=== PATIENT | female | born 1975 | race Two or more races ===

== ENCOUNTER 2018-11-29 08:48 | Emergency (ER) | payer MEDICARE, OTHER ==
[~2018-11-29] VITALS: Ht 154.9 cm; Wt 63.0 kg
[2018-11-29] MEDS ORDERED: Metoclopramide 10mg/2ml Inj IVP ONE (09:00)
[2018-11-29] MEDS ORDERED: Tylenol #3 tab (300mg/30mg) ORAL ONE (09:00)
[2018-11-29] MEDS ORDERED: DiphenhydrAMINE 50mg/ml Inj IVP ONE (09:00)
--- NOTE | 2018-11-29 09:05 | Emergency Room Report ---
History of Present Illness General Chief Complaint: To Be Triaged Source: Patient Present Illness HPI 43-year-old female with history of hypertension and pulmonary embolism on Xarelto presents with 1 week history of headache with nausea and vomiting. She reports she's tried Tylenol without much relief. She reports she went to [facility] earlier this week for the same headache and they did not do anything at all for her. She denies any blurred vision, trauma, abdominal pain , chest pain, fevers. She reports that she has been compliant with her Xarelto. Allergies: Coded Allergies: MORPHINE (Verified Allergy, Severe, CONVULSIONS, 10/26/17) Patient History Past Medical History: see triage record Reviewed Nursing Documentation: PMH: Agreed; PSxH: Agreed Review of Systems All Other Systems: negative except mentioned in HPI Physical Exam Sp02 EP Interpretation: reviewed, normal General Appearance: no apparent distress, alert, non-toxic Head: normocephalic Eyes: bilateral eye normal inspection, bilateral eye PERRL, bilateral eye EOMI ENT: normal ENT inspection, hearing grossly normal, normal pharynx, no angioedema, normal voice, moist mucus membranes Neck: normal inspection, full range of motion, supple, supple/symm/no masses Respiratory: chest non-tender, lungs clear, normal breath sounds, chest symmetrical, palpation of chest normal Cardiovascular #1: normal peripheral pulses, regular rate, rhythm, no edema, no gallop, no JVD, no murmur, no rub Cardiovascular #2: 2+ radial (R), 2+ radial (L) Gastrointestinal: normal inspection, non tender, soft, no mass, no guarding, no rebound Rectal: deferred Genitourinary: normal inspection, no CVA tenderness Musculoskeletal: back normal, gait/station normal, normal range of motion, non- tender, no calf tenderness Neurologic: alert, responsive, 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 Will obtain CT head to evaluate for any bleeding given the use of Xarelto, then reevaluate, as patient has a normal neuro exam I suspect patient will likely be going home unless CT shows evidence of intracranial bleeding. I have ordered IV Reglan, Benadryl, fluids, and 2 tablets of Tylenol 3 by mouth. Patient had some improvement symptoms, was given by mouth here, and will be discharged with prescription for Macrobid for incidental UTI. CT/MRI/US Diagnostic Results CT/MRI/US Diagnostic Results : Imaging Test Ordered: ct head Impression no acute dz, bilateral maxillary sinus mucosal thickening Disposition: HOME, SELF-CARE Condition: Stable SHITAL GUY M.D Nov 29, 2018 09:05
[2018-11-29 09:10] VITALS: BP 164/78
--- NOTE | 2018-11-29 09:10 | NUR ---
ED Nurse Note: Brought in to ER bedside via wheelchair due to abdominal pain with N/V and headahce x1 week. Denies CP at this time. No emesis nor s/s of vomitting at the bedside. Denies any bloody stool.
--- NOTE | 2018-11-29 09:19 | NUR ---
ED Nurse Note: Pt went down for CT via gurney.
[2018-11-29 09:25] LABS: APPEARANCE,URINE CLEAR; BILIRUBIN, URINE NEGATIVE (NEGATIVE); COLOR,URINE PALE YELLOW; GLUCOSE, URINE (UA) NEGATIVE (NEGATIVE); KETONES,URINE NEGATIVE (NEGATIVE); LEUKOCYTE ESTERASE ,URINE 3+ (NEGATIVE); NITRITE,URINE NEGATIVE (NEGATIVE); PH,URINE 7 (4.5-8.0); PROTEIN,URINE 1+ (NEGATIVE); UROBILINOGEN,URINE NORMAL MG/DL (0.0-1.0)
--- NOTE | 2018-11-29 09:29 | NUR ---
ED Nurse Note: Pt back from CT. No s/s of distress.
[2018-11-29 09:38] LABS: ANION GAP 6 mmol/L (5-15); BLOOD UREA NITROGEN 10 mg/dL (7-18); CARBON DIOXIDE 29 MMOL/L (21-32); CHLORIDE 100 MMOL/L (98-107); POTASSIUM 3.4 MMOL/L (3.5-5.1); SODIUM 135 MMOL/L (136-145)
[2018-11-29 09:42] LABS: ALANINE AMINOTRANSFERASE 33 U/L (12-78); ALBUMIN 3.7 G/DL (3.4-5.0); ALBUMIN/GLOBULIN RATIO 0.9 (1.0-2.7); ALKALINE PHOSPHATASE 82 U/L (46-116); ASPARTATE AMINO TRANSFERASE 27 U/L (15-37); BILIRUBIN,TOTAL 1.1 MG/DL (0.2-1.0)
[2018-11-29 09:46] LABS: BASOPHILS % (AUTO) 1.4 % (0.0-2.0); EOSINOPHILS % (AUTO) 3.6 % (0.0-3.0); HEMATOCRIT 46.3 % (37.0-47.0); HEMOGLOBIN 14.8 G/DL (12.0-16.0); LYMPHOCYTES % (AUTO) 26.6 % (20.0-45.0); MEAN CORPUSCULAR VOLUME 90 FL (80-99); MONOCYTES % (AUTO) 7.8 % (1.0-10.0); NEUTROPHILS % (AUTO) 60.6 % (45.0-75.0); PLATELET COUNT 264 K/UL (150-450); RED BLOOD COUNT 5.12 M/UL (4.20-5.40); RED CELL DISTRIBUTION WIDTH 15.5 % (11.6-14.8); WHITE BLOOD COUNT 10.3 K/UL (4.8-10.8)
[2018-11-29 09:51] LABS: BILIRUBIN,DIRECT 0.1 MG/DL (0.0-0.3)
--- NOTE | 2018-11-29 10:07 | Diagnostic Imaging Report ---
EXAM: CT Head Without Intravenous Contrast CLINICAL HISTORY: Head pain TECHNIQUE: Axial computed tomography images of the head/brain without intravenous contrast. Coronal images were obtained and reviewed. CTDI is 70.53 mGy and DLP is 1333 mGy-cm. One or more of the following dose reduction techniques were used: automated exposure control, adjustment of the mA and/or kV according to patient size, use of iterative reconstruction technique. COMPARISON: No relevant prior studies available. FINDINGS: Brain: Unremarkable. No evidence of acute intracranial hemorrhage. No significant white matter disease. No edema. No mass effect or midline shift. Ventricles: Unremarkable. No ventriculomegaly. Bones/joints: Unremarkable. No depressed skull fracture. Soft tissues: Unremarkable. Sinuses: Mucosal thickening throughout the ethmoid air cells and bilateral maxillary sinuses. Remaining visualized paranasal sinuses appear clear. No sinus air-fluid levels. Mastoid air cells: Unremarkable as visualized. No mastoid effusion. IMPRESSION: 1. No acute intracranial findings. 2. Mucosal thickening throughout the ethmoid air cells and bilateral maxillary sinuses. Correlate clinically for sinusitis.
[2018-11-29] MEDS ORDERED: BENADRYL25 M3 PO (10:31)
[2018-11-29] MEDS ORDERED: NITROFURANTOIN100 M2 ORAL (10:31)
[2018-11-29] MEDS ORDERED: REGLAN10 MG ORAL (10:31)
[2018-11-29] MEDS ORDERED: ACETAMINOPHEN-1 EAC1 ORAL (10:31)
[2018-11-29 10:38] VITALS: BP 118/67
[2018-11-29 10:39] VITALS: BP 118/67
--- NOTE | 2018-11-29 10:39 | NUR ---
ED Nurse Note: Pt cleared by health care Provider for discharge. DC instructions/prescription was given and explained to pt and verbalized understanding of teachings. All medical deviecs such as ID band IV removed. Pt is AAO x4, ambulatory and left with all personal belongings. Pt reports that she is going to wait in the waiting room until her come and pick her up. Denie pain at this time.
[2018-11-30] MEDS ORDERED: TRAMADOL HCL50 MG ORAL (11:52)
[2018-11-30] MEDS ORDERED: COUMADIN7.5 MG ORAL (11:52)
[2018-11-30] MEDS ORDERED: FOLIC ACID1 MG ORAL (11:52)
[2018-11-30] MEDS ORDERED: TENORMIN50 MG ORAL (11:53)
== END 2018-11-29 10:40 | disposition home or self-care (01) ==
LOC: EMR 09:07
DX: R51 Headache (principal); N39.0 Urinary tract infection, site not specified; I10 Essential (primary) hypertension; Z86.711 Personal history of pulmonary embolism; Z79.02 Long term (current) use of antithrombotics/antiplatelets; Z88.5 Allergy status to narcotic agent
CPT/HCPCS: 36415; 70450; 80053; 81003; 82248; 83690; 85025; 87086; 96361; 96374; 96375; 99284; J1200; J2765

== ENCOUNTER 2018-11-30 11:36 | Inpatient (IN) | payer MEDICARE, OTHER ==
[~2018-11-30] VITALS: Ht 165.1 cm; Wt 62.8 kg
[~2018-11-30 11:36] MED LIST: ACETAMINOPHEN-1 EAC1 ORAL; BENADRYL25 M3 PO; NITROFURANTOIN100 M2 ORAL; REGLAN10 MG ORAL
[2018-11-30 11:48] VITALS: BP 134/81
[2018-11-30] MEDS ORDERED: FOLIC ACID1 MG ORAL (11:52)
[2018-11-30] MEDS ORDERED: COUMADIN7.5 MG ORAL (11:52)
[2018-11-30] MEDS ORDERED: TRAMADOL HCL50 MG ORAL (11:52)
[2018-11-30] MEDS ORDERED: TENORMIN50 MG ORAL (11:53)
--- NOTE | 2018-11-30 12:18 | Emergency Room Report ---
History of Present Illness General Chief Complaint: Abdominal Pain Source: Patient Present Illness HPI Patient 43-year-old female presented after increased abdominal pain. Patient reports of increased bilateral flank pain. She has recently been treated for urinary tract infection. Patient reports having prior history of pulmonary embolism and is currently on anticoagulation with Coumadin. She reports having associated nausea and vomiting. She denies any diarrhea. She had gradual onset of headache. She been recently noted to have increased abdominal discomfort. She had prior history of renal stones. Allergies: Coded Allergies: MORPHINE (Verified Allergy, Severe, CONVULSIONS, 10/26/17) Patient History Last Menstrual Period: menopause Reviewed Nursing Documentation: PMH: Agreed; PSxH: Agreed Nursing Documentation-PMH Past Medical History: No History, Except For Hx Hypertension: Yes - arthritis Hx Pacemaker: No Hx Asthma: No Hx COPD: No Hx Diabetes: No Hx Cancer: No Hx Gastrointestinal Problems: No Hx Dialysis: No History Of Psychiatric Problem: No Hx Neurological Problems: No Hx Cerebrovascular Accident: No Hx Seizures: No Review of Systems All Other Systems: negative except mentioned in HPI Physical Exam Vital Signs Date Time Temp Pulse Resp B/P (MAP) Pulse Ox O2 Delivery O2 Flow Rate FiO2 11/30/18 11:48 97.7 53 16 134/81 97 Room Air Sp02 EP Interpretation: reviewed, normal General Appearance: normal inspection, well appearing, no apparent distress, alert, GCS 15, Chronically Ill Head: atraumatic ENT: normal ENT inspection, hearing grossly normal, normal voice Neck: normal inspection, full range of motion, supple, no bony tend Respiratory: normal inspection, lungs clear, normal breath sounds, no respiratory distress, no retraction, no wheezing Cardiovascular #1: regular rate, rhythm, no edema Gastrointestinal: normal inspection, normal bowel sounds, non tender, soft, no guarding, no hernia Genitourinary: no CVA tenderness Musculoskeletal: normal inspection, back normal, normal range of motion Neurologic: normal inspection, alert, oriented x3, responsive, 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 Presented for abdominal pain. Differential diagnoses included ischemic bowel, appendicitis, perforated viscus , abdominal aortic aneurysm, inferior myocardial infarction, viral gastroenteritis among others. Patient was noted to have significant abdominal discomfort. She additionally had some generalized weakness. Patient had been seen 1 day prior to arrival and had been noted to have some urinary infection which she is being treated with antibiotics. Urinalysis showed some improvement in urinary tract infection. CT of abdomen pelvis showed multiple gallbladder stones. Patient was given IV Rocephin.Dr. Rocky Valle was contacted for inpatient management due to generalized weakness and elevated bilirubin. Labs Test 11/30/18 12:12 12/01/18 13:52 White Blood Count 8.9 K/UL (4.8-10.8) Red Blood Count 4.94 M/UL (4.20-5.40) Hemoglobin 14.6 G/DL (12.0-16.0) Hematocrit 44.2 % (37.0-47.0) Mean Corpuscular Volume 90 FL (80-99) Mean Corpuscular Hemoglobin 29.5 PG (27.0-31.0) Mean Corpuscular Hemoglobin Concent 32.9 G/DL (32.0-36.0) Red Cell Distribution Width 15.3 % (11.6-14.8) Platelet Count 241 K/UL (150-450) Mean Platelet Volume 6.6 FL (6.5-10.1) Neutrophils (%) (Auto) 61.2 % (45.0-75.0) Lymphocytes (%) (Auto) 25.5 % (20.0-45.0) Monocytes (%) (Auto) 8.1 % (1.0-10.0) Eosinophils (%) (Auto) 3.3 % (0.0-3.0) Basophils (%) (Auto) 1.9 % (0.0-2.0) Prothrombin Time 11.0 SEC (9.30-11.50) Prothromb Time International Ratio 1.0 (0.9-1.1) Activated Partial Thromboplast Time 35 SEC (23-33) Urine Color Yellow Urine Appearance Clear Urine pH 5 (4.5-8.0) Urine Specific [place] 1.020 (1.005-1.035) Urine Protein 2+ (NEGATIVE) Urine Glucose (UA) Negative (NEGATIVE) Urine Ketones Negative (NEGATIVE) Urine Blood 1+ (NEGATIVE) Urine Nitrite Negative (NEGATIVE) Urine Bilirubin Negative (NEGATIVE) Urine Urobilinogen Normal MG/DL (0.0-1.0) Urine Leukocyte Esterase 2+ (NEGATIVE) Urine RBC 0-2 /HPF (0 - 2) Urine WBC 5-10 /HPF (0 - 2) Urine Squamous Epithelial Cells Few /LPF (NONE/OCC) Urine Bacteria Few /HPF (NONE) Sodium Level 132 MMOL/L (136-145) Potassium Level 3.5 MMOL/L (3.5-5.1) Chloride Level 99 MMOL/L (98-107) Carbon Dioxide Level 26 MMOL/L (21-32) Anion Gap 7 mmol/L (5-15) Blood Urea Nitrogen 8 mg/dL (7-18) Creatinine 0.9 MG/DL (0.55-1.30) Estimat Glomerular Filtration Rate > 60 mL/min (>60) Glucose Level 101 MG/DL (74-106) Calcium Level 9.2 MG/DL (8.5-10.1) Total Bilirubin 1.5 MG/DL (0.2-1.0) Direct Bilirubin 0.2 MG/DL (0.0-0.3) Aspartate Amino Transf (AST/SGOT) 25 U/L (15-37) Alanine Aminotransferase (ALT/SGPT) 28 U/L (12-78) Alkaline Phosphatase 75 U/L (46-116) Total Protein 7.5 G/DL (6.4-8.2) Albumin 3.6 G/DL (3.4-5.0) Globulin 3.9 g/dL Albumin/Globulin Ratio 0.9 (1.0-2.7) Lipase 156 U/L (73-393) Urine Opiates Screen Positive (NEGATIVE) Urine Barbiturates Screen Negative (NEGATIVE) Phencyclidine (PCP) Screen Negative (NEGATIVE) Urine Amphetamines Screen Negative (NEGATIVE) Urine Benzodiazepines Screen Negative (NEGATIVE) Urine Cocaine Screen Negative (NEGATIVE) Urine Marijuana (THC) Screen Negative (NEGATIVE) Last Vital Signs Date Time Temp Pulse Resp B/P (MAP) Pulse Ox O2 Delivery O2 Flow Rate FiO2 11/30/18 11:48 97.7 53 16 134/81 97 Room Air Status: unchanged Disposition: ADMITTED INPATIENT Condition: Serious Luis Felipe Smith MD Nov 30, 2018 12:18
[2018-11-30 12:23] LABS: APPEARANCE,URINE CLEAR; BILIRUBIN, URINE NEGATIVE (NEGATIVE); GLUCOSE, URINE (UA) NEGATIVE (NEGATIVE); KETONES,URINE NEGATIVE (NEGATIVE); LEUKOCYTE ESTERASE ,URINE 2+ (NEGATIVE); NITRITE,URINE NEGATIVE (NEGATIVE); PH,URINE 5 (4.5-8.0); PROTEIN,URINE 2+ (NEGATIVE); UROBILINOGEN,URINE NORMAL MG/DL (0.0-1.0)
--- NOTE | 2018-11-30 12:23 | NUR ---
ED Nurse PT. AAOX4. AMBULATORY. CAME IN TO ER DUE TO ABD PAIN ON THE BOTH LATERAL SIDES WITH HEADACHE X 1 WEEK. N/V REPORTED WITH UNDIGESTED FOOD EMESIS. DENIES DIARRHEA
[2018-11-30 12:27] LABS: BASOPHILS % (AUTO) 1.9 % (0.0-2.0); EOSINOPHILS % (AUTO) 3.3 % (0.0-3.0); HEMATOCRIT 44.2 % (37.0-47.0); HEMOGLOBIN 14.6 G/DL (12.0-16.0); LYMPHOCYTES % (AUTO) 25.5 % (20.0-45.0); MEAN CORPUSCULAR VOLUME 90 FL (80-99); MONOCYTES % (AUTO) 8.1 % (1.0-10.0); NEUTROPHILS % (AUTO) 61.2 % (45.0-75.0); PLATELET COUNT 241 K/UL (150-450); RED BLOOD COUNT 4.94 M/UL (4.20-5.40); RED CELL DISTRIBUTION WIDTH 15.3 % (11.6-14.8); WHITE BLOOD COUNT 8.9 K/UL (4.8-10.8)
[2018-11-30 12:34] LABS: ANION GAP 7 mmol/L (5-15); BLOOD UREA NITROGEN 8 mg/dL (7-18); CALCIUM 9.2 MG/DL (8.5-10.1); CARBON DIOXIDE 26 MMOL/L (21-32); CHLORIDE 99 MMOL/L (98-107); CREATININE 0.9 MG/DL (0.55-1.30); POTASSIUM 3.5 MMOL/L (3.5-5.1); SODIUM 132 MMOL/L (136-145)
[2018-11-30 12:35] LABS: COLOR,URINE YELLOW
[2018-11-30 12:44] LABS: ALANINE AMINOTRANSFERASE 28 U/L (12-78); ALBUMIN 3.6 G/DL (3.4-5.0); ALBUMIN/GLOBULIN RATIO 0.9 (1.0-2.7); ALKALINE PHOSPHATASE 75 U/L (46-116); ASPARTATE AMINO TRANSFERASE 25 U/L (15-37); BILIRUBIN,TOTAL 1.5 MG/DL (0.2-1.0)
[2018-11-30 12:55] LABS: BILIRUBIN,DIRECT 0.2 MG/DL (0.0-0.3)
--- NOTE | 2018-11-30 13:00 | NUR ---
ED Nurse Note: CALLED CT FOR FOLLOW UP
[2018-11-30] MEDS ORDERED: cefTRIAXone 1 GM in NS 55 ML IVPB ONE (13:15)
[2018-11-30 14:14] VITALS: BP 110/78
[2018-11-30] MEDS ORDERED: Ketorolac 30mg Inj IV ONE (14:15)
--- NOTE | 2018-11-30 14:33 | NUR ---
ED Nurse Note: US AT THE BEDSIDE
--- NOTE | 2018-11-30 15:14 | NUR ---
ED Nurse Note: attempted giving report to receiving RN on [facility], nurse currently on break.
--- NOTE | 2018-11-30 15:52 | NUR ---
ED Nurse Note: report given to WAYNE Rainey, pt will be transferred to [facility], all belongings sent with pt, pt vss, no neuro changes.
[2018-11-30 16:00] VITALS: BP 114/61
--- NOTE | 2018-11-30 16:00 | NUR ---
NURSE NOTES: Patient received from ER via rney at 1600, in stable condition. Vitals obtained, WNL. Experiencing abdominal pain 5/10 at rest. LAC heplock intact, asymptomatic. Patient oriented to room, call light in reach, bed in lowest position. Will continue to monitor. Will notify Dr. Valle for admission orders.
--- NOTE | 2018-11-30 17:00 | NUR ---
NURSE NOTES: Rounds made, patient sleeping, no distress noted. Will continue to monitor.
--- NOTE | 2018-11-30 19:45 | NUR ---
HAND-OFF: Report given to Cayla BLACK.
[2018-11-30 20:00] VITALS: BP 134/69
[2018-11-30] MEDS: HYDROcodone/Acetamin 5/325 tab ORAL PRN (20:48)
--- NOTE | 2018-11-30 22:09 | NUR ---
NURSE NOTES: Patient is in bed, aaox4. VSS, no respiratory distress. [place] given for pain of 6/10 predominantly left upper quadrant. IV site patent. no nausea, tolerating food. Bed low, call light within reach.
[2018-11-30] MEDS: Albuterol/Ipratropium 3ml neb HHN SCH (22:26)
[2018-12-01] VITALS: BP 134/75
[2018-12-01] MEDS: Albuterol/Ipratropium 3ml neb HHN SCH ×6 (03:32→23:34)
[2018-12-01 04:00] VITALS: BP 118/60
[2018-12-01 08:00] VITALS: BP 127/72
--- NOTE | 2018-12-01 08:00 | NUR ---
NURSE NOTES: Received report from Cayla BLACK. Patient is asleep during rounds, no acute distress noted. RR even and unlabored. IV intact and asymptomatic. Side rails upx3, bed low and locked, call light in reach. Will continue to monitor.
--- NOTE | 2018-12-01 08:02 | NUR ---
HAND-OFF: Report given to WAYNE Kim. Patient stable.
[2018-12-01] MEDS: HYDROcodone/Acetamin 5/325 tab ORAL PRN (08:16)
--- NOTE | 2018-12-01 08:47 | Diagnostic Imaging Report ---
Indication: Altered mental status Technique: Continuous helical CT scanning of the head was performed without intravenous contrast material. Axial and coronal 5 mm sections were generated. Radiation dose was minimized using automated exposure control Dose: Total Dose Length Product - DLP 1319.[address] Dose Index - CTDIvol(s) 70.38 mGy. Comparison: 11/29/2018 Findings: The ventricular system is normal in size and configuration. There is no shift of midline structures. No abnormal extra-axial fluid collections are noted. There is no evidence of intracerebral bleeding. No other abnormal high or low density areas are noted within the brain. Normal bob-white differentiation. There is ethmoid and sphenoid sinus disease again noted. The mastoids are clear. The calvarium is intact. The orbits are unremarkable. No significant interim change Impression: Normal CT scan of the head without contrast material. Incidental finding of sinus disease This agrees with the preliminary interpretation provided overnight by [facility] service. The CT scanner at [facility] is accredited by the [employer] and the scans are performed using protocols designed to limit radiation exposure to as low as reasonably achievable to attain images of sufficient resolution adequate for diagnostic evaluation.
[2018-12-01] MEDS ORDERED: Hydromorphone 0.5mg/0.5ml inj IVP PRN (09:30)
[2018-12-01] MEDS: Eliquis 2.5mg tablet ORAL SCH ×2 (09:41→17:40)
--- NOTE | 2018-12-01 10:43 | Diagnostic Imaging Report ---
Indication: Abdominal pain Technique: Fair-scale and duplex images of the upper abdomen were obtained Comparison: Reference made to CT scan performed one hour earlier Findings: Gallbladder demonstrate gallstones. No wall thickening nor pericholecystic fluid. Sonographic Hayward's sign is negative. Common bile duct measures 3 mm in diameter. No intrahepatic biliary ductal dilatation. Liver demonstrates normal echogenicity, no focal abnormality. Portal vein and hepatic veins are patent. Pancreas is incompletely visualized due to overlying bowel gas, visualized portions are unremarkable. Spleen is unremarkable. Left kidney measures 10.7 cm in length. Right kidney measures 9.6 cm length. Both kidneys demonstrate normal echogenicity. There is no hydronephrosis. The left kidney demonstrates multiple small cysts . Abdominal aorta is partially obscured by bowel gas, visualized portions are non-aneurysmal . Impression: Cholelithiasis. Negative for biliary ductal dilatation Note incomplete visualization of portions of the abdominal aorta and pancreas Incidental finding left renal cysts This agrees with the preliminary interpretation provided overnight by [facility].
--- NOTE | 2018-12-01 11:51 | GI Initial Consult Note ---
History of Present Illness General Date patient seen: Dec 01, 2018 Time patient seen: 11:49 Reason for Hospitalization: Abdominal Pain Referring physician: BUSTER Reason for Consultation: ABDOMINAL PAIN Present Illness HPI Patient 43-year-old female presented after increased abdominal pain. Patient reports of increased bilateral flank pain. She has recently been treated for urinary tract infection. Patient reports having prior history of pulmonary embolism and is currently on anticoagulation with Coumadin. She reports having associated nausea and vomiting. She denies any diarrhea. She had gradual onset of headache. She been recently noted to have increased abdominal discomfort. She had prior history of renal stones. GI consulted for reported abdominal pain, nausea vomiting. Pt seen, awake A& Ox4 NAD has c/o of severe N/V. Denied any hematemesis or coffee rounds. Pt had increased abdominal pain, generalized for approximately 1 week. Now has severe epigastric pain. Unrelieved with home medication. Denied any use of NSAIDs. Denied any recent travels or changes in dietary habits. No reported diarrhea. Noted that the patient is on Eliquis given history of pulmonary embolism. Negative head CT. Abdominal ultrasound shows the presence of cholelithiasis, with no biliary ductal dilation. Has history of endoscopy, but not sure of when and what results. Abdominal US shows cholelithiasis, but no biliary ductal dilation. Head CT negative. Home Meds Active Scripts Nitrofurantoin Monohyd/M-Cryst* (MACROBID 100 MG*) 100 Mg Capsule, 100 MG ORAL EVERY 12 HOURS for 7 Days, CAP Prov:UGY,SHITAL M.D 11/29/18 Acetaminophen With Codeine (T#3) (TYLENOL #3 TAB*) Y Tab, 1 TAB ORAL Q8H PRN for For Pain, #10 TAB Prov:GUY,SHITAL M.D 11/29/18 Diphenhydramine HCl (Benadryl) 25 Mg Capsule, 25 MG PO EVERY 6 HOURS for with reglan, #10 CAP Prov:GUY,SHITAL M.D 11/29/18 Metoclopramide Hcl* (REGLAN*) 10 Mg Tablet, 10 MG ORAL THREE TIMES A DAY, #10 TAB Prov:GUY,SHITAL M.D 11/29/18 Reported Medications Atenolol* (TENORMIN*) 50 Mg Tablet, 50 MG ORAL BID, TAB 11/30/18 Tramadol Hcl* (ULTRAM*) 50 Mg Tablet, 50 MG ORAL Q6H PRN for For Pain, #30 TAB 0 Refills 11/30/18 Folic Acid* (FOLIC ACID*) 1 Mg Tablet, 1 MG ORAL DAILY, TAB 11/30/18 Warfarin Sod (COUMADIN*) 7.5 Mg Tablet, 7 MG ORAL DAILY, TAB 11/30/18 Med list reviewed/reconciled: Yes Allergies: Coded Allergies: MORPHINE (Verified Allergy, Severe, CONVULSIONS, 10/26/17) Patient History History Provided By: Patient PMH Narrative Past Medical History: No History, Except For Hx Hypertension: Yes - arthritis Hx Pacemaker: No Hx Asthma: No Hx COPD: No Hx Diabetes: No Hx Cancer: No Hx Gastrointestinal Problems: No Hx Dialysis: No History Of Psychiatric Problem: No Hx Neurological Problems: No Hx Cerebrovascular Accident: No Hx Seizures: No Social History: Denies: smoking, alcohol use, drug use, other Review of Systems All Other Systems: negative except mentioned in HPI Physical Exam Vital Signs Date Time Temp Pulse Resp B/P (MAP) Pulse Ox O2 Delivery O2 Flow Rate FiO2 11/30/18 11:48 97.7 53 16 134/81 97 Room Air 11/30/18 22:26 21 Sp02 EP Interpretation: reviewed, normal Labs Laboratory Tests Test 11/30/18 12:12 White Blood Count 8.9 K/UL (4.8-10.8) Red Blood Count 4.94 M/UL (4.20-5.40) Hemoglobin 14.6 G/DL (12.0-16.0) Hematocrit 44.2 % (37.0-47.0) Mean Corpuscular Volume 90 FL (80-99) Mean Corpuscular Hemoglobin 29.5 PG (27.0-31.0) Mean Corpuscular Hemoglobin Concent 32.9 G/DL (32.0-36.0) Red Cell Distribution Width 15.3 % (11.6-14.8) H Platelet Count 241 K/UL (150-450) Mean Platelet Volume 6.6 FL (6.5-10.1) Neutrophils (%) (Auto) 61.2 % (45.0-75.0) Lymphocytes (%) (Auto) 25.5 % (20.0-45.0) Monocytes (%) (Auto) 8.1 % (1.0-10.0) Eosinophils (%) (Auto) 3.3 % (0.0-3.0) H Basophils (%) (Auto) 1.9 % (0.0-2.0) Prothrombin Time 11.0 SEC (9.30-11.50) Prothromb Time International Ratio 1.0 (0.9-1.1) Activated Partial Thromboplast Time 35 SEC (23-33) H Urine Color Yellow Urine Appearance Clear Urine pH 5 (4.5-8.0) Urine Specific [place] 1.020 (1.005-1.035) Urine Protein 2+ (NEGATIVE) H Urine Glucose (UA) Negative (NEGATIVE) Urine Ketones Negative (NEGATIVE) Urine Blood 1+ (NEGATIVE) H Urine Nitrite Negative (NEGATIVE) Urine Bilirubin Negative (NEGATIVE) Urine Urobilinogen Normal MG/DL (0.0-1.0) Urine Leukocyte Esterase 2+ (NEGATIVE) H Urine RBC 0-2 /HPF (0 - 2) Urine WBC 5-10 /HPF (0 - 2) H Urine Squamous Epithelial Cells Few /LPF (NONE/OCC) Urine Bacteria Few /HPF (NONE) Sodium Level 132 MMOL/L (136-145) L Potassium Level 3.5 MMOL/L (3.5-5.1) Chloride Level 99 MMOL/L (98-107) Carbon Dioxide Level 26 MMOL/L (21-32) Anion Gap 7 mmol/L (5-15) Blood Urea Nitrogen 8 mg/dL (7-18) Creatinine 0.9 MG/DL (0.55-1.30) Estimat Glomerular Filtration Rate > 60 mL/min (>60) Glucose Level 101 MG/DL (74-106) Calcium Level 9.2 MG/DL (8.5-10.1) Total Bilirubin 1.5 MG/DL (0.2-1.0) H Direct Bilirubin 0.2 MG/DL (0.0-0.3) Aspartate Amino Transf (AST/SGOT) 25 U/L (15-37) Alanine Aminotransferase (ALT/SGPT) 28 U/L (12-78) Alkaline Phosphatase 75 U/L (46-116) Total Protein 7.5 G/DL (6.4-8.2) Albumin 3.6 G/DL (3.4-5.0) Globulin 3.9 g/dL Albumin/Globulin Ratio 0.9 (1.0-2.7) L Lipase 156 U/L (73-393) General Appearance: well appearing, no apparent distress, alert Head: normocephalic EENT: PERRL/EOMI, normal ENT inspection Neck: supple Respiratory: normal breath sounds, no respiratory distress Cardiovascular: normal rate Gastrointestinal: normal inspection, non tender, soft, normal bowel sounds, non -distended Rectal: deferred Genitourinary: no CVA tenderness Musculoskeletal: normal inspection, back normal Neurologic: normal inspection, alert, oriented x3, responsive Psychiatric: normal inspection, judgement/insight normal, memory normal Skin: normal inspection, normal color, no rash, warm/dry, palpation normal, well hydrated Lymphatic: normal inspection, no adenopathy Current Medications Current Medications Medications (Trade) Dose Ordered Sig/Sheila Route PRN Reason Start Time Stop Time Status Last Admin Dose Admin Acetaminophen/ Hydrocodone Bitart ([place] 5/325) 1 tab Q4H PRN ORAL Moderate Pain (Pain Scale 4-6) 11/30/18 20:30 12/07/18 20:29 12/01/18 08:16 Albuterol/ Ipratropium (Albuterol/ Ipratropium) 3 ml Q4HRT HHN 11/30/18 23:00 12/05/18 22:59 12/01/18 08:02 Apixaban (Eliquis) 5 mg BID ORAL 12/01/18 09:00 12/31/18 08:59 12/01/18 09:41 Hydromorphone HCl (Dilaudid) 0.5 mg Q6H PRN IVP Severe Pain (Pain Scale 7-10) 12/01/18 09:30 12/08/18 09:29 Pantoprazole (Protonix) 40 mg DAILY ORAL 11/30/18 20:30 12/30/18 20:29 12/01/18 09:41 GI: Plan Problems: (1) Generalized weakness (2) Abdominal pain (3) PUD (peptic ulcer disease) (4) Cholelithiasis Plan History of PE, on Eliquis abdominal US, cholelithiasis Head CT, negative CT AP pending Will consider EGD tomorrow, will follow up with complete note zofran prn ppi daily pain mgmt follow labs, HgA1C Discussed with Dr. Munoz. Thank you for this patient referral, we will follow. The patient was seen and examined at bedside and all new and available data was reviewed in the patients chart. I agree with the above findings, impression and plan. (Patient seen earlier today. Signature stamp does not reflect patient encounter time.). - MD Radha [facility] APRIL Dec 01, 2018 11:50
--- NOTE | 2018-12-01 14:30 | History and Physical Report ---
HISTORY OF PRESENT ILLNESS: This is an elderly year-old female who came to the emergency room for short of breath, cough, and recurrent back pain is progressively worse. She has no fever or chills. PAST MEDICAL HISTORY: Significant for PE, hypertension, and borderline diabetes. MEDICATIONS: See the list. ALLERGIES: NKA. FAMILY HISTORY: Noncontributory. SOCIAL HISTORY: Lives at home with the kids. Denies any smoking or drinking. Denies any illegal drugs. REVIEW OF SYSTEMS: Generalized weakness, has pain in in the back and forth of the back and [id number] short of breath on exertion. PHYSICAL EXAMINATION: VITAL SIGNS: Blood pressure is 130/70, pulse 60, and respirations 18. No fever. HEENT: NAD. CHEST: Bilaterally few wheezing and crackles. CARDIOVASCULAR: Regular rhythm. No gallop. No murmur. ABDOMEN: Soft. Positive bowel sounds. Nontender. EXTREMITIES: No CCE. NEUROLOGICAL: Generalized weakness. ASSESSMENT: 1. Acute bronchitis. 2. PE. 3. Chronic back pain. 4. Diabetes. 5. Hypertension. PLAN: 1. We will admit on a telemetry bed. 2. Restart intravenous bronchodilator treatments. 3. Antibiotics. Continue apixaban and discussed with charge nurse. 4. Consider pulmonary consult. Rocky Valle M.D. DR: EMERSON JOB#: [id number] CC:
--- NOTE | 2018-12-01 14:52 | NUR ---
NURSE NOTES: Notified Umang [employer] of patient's positive urine tox screen for opioids. [employer] aware.
--- NOTE | 2018-12-01 15:40 | Diagnostic Imaging Report ---
Indication: Abdominal pain Technique: Spiral acquisitions obtained through the abdomen and pelvis. No oral contrast utilized, per emergency room physician request No IV contrast utilized, per emergency room physician request.. Multiplanar reconstructions were generated. Total dose length product 544.91 mGycm. CTDIvol(s) 10.72 mGy. Dose reduction achieved using automated exposure control Comparison: None Findings: There is slight fat stranding in the retroperitoneum surrounding the distal aorta and inferior vena cava, and there are prominent lymph nodes in this area. Unremarkable appendix. There is colonic diverticulosis. No evidence of diverticulitis. Distal esophagus, stomach, duodenum are unremarkable. No small bowel distention. No free or loculated intraperitoneal gas or fluid is evident. Lack of IV contrast limits assessment of the solid organs. The liver is unremarkable. The gallbladder demonstrates multiple gallstones. No biliary ductal dilatation. Pancreas, spleen, adrenals are all unremarkable. The kidneys are unremarkable. No pelvic mass or adenopathy. No retroperitoneal or mesenteric mass or adenopathy. There is equivocal mild bladder wall thickening, probably an artifact of under distention The included lung bases demonstrate some honeycombing and subpleural blebs as well as reticular interstitial opacities and a few faint airspace opacities bilaterally. The heart is mildly enlarged. There is evidence of prior median sternotomy. The bones demonstrates small right femoral bone island. Impression: Stranding of the periaortic fat. Prominent para-aortic and pericaval lymph nodes This suggests inflammatory change in this region, nature of which is uncertain. The possibility of aortitis should be considered, among other possibilities. Colonic diverticulosis. No evidence of diverticulitis Cholelithiasis Basilar pulmonary fibrotic changes. Reticular interstitial opacities and airspace opacities may indicate a component of acute disease as well. Cardiomegaly Mild bladder wall thickening, probably an artifact of under distention, but cystitis also possible. Correlate with laboratory findings Evidence of prior median sternotomy This agrees with the preliminary interpretation provided overnight by [facility]eradiology service.. Main finding of retroperitoneal fat stranding also discussed with Dr. Valle at the time of interpretation The CT scanner at [facility] is accredited by the [employer] and the scans are performed using protocols designed to limit radiation exposure to as low as reasonably achievable to attain images of sufficient resolution adequate for diagnostic evaluation.
--- NOTE | 2018-12-01 18:00 | NUR ---
NURSE NOTES: Patient had episode of emesis x1, zofran given. Patient in better condition now, sleeping. Pain well controlled with IV dilaudid.
--- NOTE | 2018-12-01 19:40 | NUR ---
HAND-OFF: Report given to Cayla BLACK. Patient is in stable condition.
--- NOTE | 2018-12-01 19:45 | Progress Note ---
DATE: 12/01/2018 SUBJECTIVE: This is an elderly female who came in with abdominal pain, nausea, vomiting, back pain, and acute bronchitis. The patient is also complaining of headache, unable to eat, and has been throwing food. OBJECTIVE: VITAL SIGNS: Blood pressure 118/79, pulse 66, respirations 20, and temperature 97.9. HEENT: NAD. CHEST: Bilaterally few crackles. CARDIOVASCULAR: Regular rhythm. ABDOMEN: Soft. EXTREMITIES: No CCE. NEUROLOGICAL: Generalized weakness. LABORATORY DATA: White count is 8.9 and hemoglobin 15. Sodium 132, potassium 3.5, BUN 8, creatinine 0.9, and bilirubin 1.5. Her urine is 1+ blood and 2+ leukocyte esterase. Her head CT is so far negative. ASSESSMENT: 1. Recurrent nausea and vomiting. 2. Acute bronchitis. 3. Headache. PLAN: 1. We will consider GI consult. 2. Add Dilaudid for pain. 3. Continue current treatment. 4. Continue antibiotics. 5. The patient is on Pepcid and ceftriaxone. 6. Wait for cultures. Rocky Valle M.D. DR: AIXA JOB#: [id number] CC:
--- NOTE | 2018-12-01 19:57 | NUR ---
CASE MANAGEMENT: REVIEW 43/F PRESENTED TO ED FROM HOME CC: BILATERAL FLANK PAIN . ABD PAIN SI: CHOLELITHIASIS . ABDOMINAL PAIN T 97.7 HR 53 RR 16 BP 134/81 SAT 97% ROOM AIR NA 132 T-BILI 1.5 UA: PROTEIN 2+ BLOOD 1+ LEUKOCYTE ESTERASE 2+ WBC 5-10 IS: NS IVF BOLUS X1 ZOFRAN IV X1 CEFTRIAXONE IV X1 TORADOL IV X1 PATIENT ADMITTED TO MED/SURG UNIT 11/30/2018 DCP: PATIENT IS FROM HOME
--- NOTE | 2018-12-01 21:06 | NUR ---
NURSE NOTES: Patient is in bed, aaox3, Lethargic. VSS, no shortness of breath at this time. C/o pain 5/10 epigastric pain and headache. C/o not having a bm in 4 days. Abdomen soft, nontender to palpation. Dr. Munoz made aware. Colace BID, miralax daily, and Ducolax supp x1 ordered. Reoriented to room. Bed alarm on, bed low, call light within reach.
[2018-12-01] MEDS ORDERED: Miralax 17gm pkt ORAL PRN (21:15)
[2018-12-02] VITALS (12 sets, daily range): BP systolic 104–140; BP diastolic 61–92
[2018-12-02] MEDS: Albuterol/Ipratropium 3ml neb HHN SCH ×6 (03:15→23:00)
[2018-12-02 06:41] LABS: BASOPHILS % (AUTO) 1.3 % (0.0-2.0); EOSINOPHILS % (AUTO) 3.5 % (0.0-3.0); HEMATOCRIT 43.4 % (37.0-47.0); HEMOGLOBIN 14.5 G/DL (12.0-16.0); LYMPHOCYTES % (AUTO) 23.2 % (20.0-45.0); MEAN CORPUSCULAR VOLUME 89 FL (80-99); MONOCYTES % (AUTO) 8.4 % (1.0-10.0); NEUTROPHILS % (AUTO) 63.6 % (45.0-75.0); PLATELET COUNT 250 K/UL (150-450); RED BLOOD COUNT 4.86 M/UL (4.20-5.40); RED CELL DISTRIBUTION WIDTH 15.1 % (11.6-14.8); WHITE BLOOD COUNT 7.4 K/UL (4.8-10.8)
[2018-12-02 06:48] LABS: INR 1.1 (0.9-1.1)
[2018-12-02 07:00] LABS: ANION GAP 11 mmol/L (5-15); BLOOD UREA NITROGEN 8 mg/dL (7-18); CALCIUM 9.2 MG/DL (8.5-10.1); CARBON DIOXIDE 27 MMOL/L (21-32); CHLORIDE 99 MMOL/L (98-107); CREATININE 0.8 MG/DL (0.55-1.30); POTASSIUM 3.6 MMOL/L (3.5-5.1); SODIUM 136 MMOL/L (136-145)
--- NOTE | 2018-12-02 08:00 | NUR ---
During shift change patient alert oriented with out no distress seating on bed aware the NPO status and scheduled EGD procedure, bed on low position and locked, call light with in reach will continue to monitor.
--- NOTE | 2018-12-02 08:40 | NUR ---
HAND-OFF: Report given to WAYNE PARIKH. PATIENT STABLE. Addendum: 12/02/18 at 0841 by MARKOS FLORES RN STATES SHE HAD 1 BM THIS MORNING
[2018-12-02] MEDS: Eliquis 2.5mg tablet ORAL SCH ×2 (08:48→17:59)
[2018-12-02] MEDS: Docusate 100mg cap ORAL SCH ×2 (08:48→17:59)
[2018-12-02] MEDS ORDERED: Midazolam 2mg/2ml Inj ONE (11:24)
[2018-12-02] MEDS ORDERED: fentaNYL 100 mcg/2 mL IV ONE (11:24)
[2018-12-02] MEDS ORDERED: NS 500ML IVPB ONE (11:55)
[2018-12-02] MEDS ORDERED: Propofol 200mg/20ml IV ONE (12:00)
[2018-12-02] MEDS ORDERED: LR 1000ml ONE (12:00)
--- NOTE | 2018-12-02 12:06 | Anethesia Preoperative Eval ---
Anesthesia Pre-op PMH/ROS General Date of Evaluation: Dec 02, 2018 Time of Evaluation: 12:02 Anesthesiologist: Shama ASA Score: ASA 2 Mallampati Score Class I : Soft palate, uvula, fauces, pillars visible Class II: Soft palate, uvula, fauces visible Class III: Soft palate, base of uvula visible Class IV: Only hard plate visible Mallampati Classification: Class II Surgeon: Tammy Diagnosis: Abdominal pain Surgical Procedure: EGD Anesthesia History: none Family History: no anesthesia problems Allergies: Coded Allergies: MORPHINE (Verified Allergy, Severe, CONVULSIONS, 10/26/17) Medications: see eMAR Patient NPO?: Yes Past Medical History Cardiovascular: Reports: HTN; Denies: CAD, AK, valve dz, arrhythmia, other Pulmonary: Reports: COPD; Denies: asthma, MARTINEZ, other Gastrointestinal/Genitourinary: Reports: GERD; Denies: CRI, ESRD, other Neurologic/Psychiatric: Reports: depression/anxiety; Denies: dementia, CVA, TIA, other Endocrine: Reports: DM - borderline; Denies: hypothyroidism, steroids, other HEENT: Denies: cataract (L), cataract (R), glaucoma, KOTZEBUE (L), KOTZEBUE (R), other Hematology/Immune: Reports: other - h/o PE anticoagulated; Denies: anemia, DVT, bleeding disorder Musculoskeletal/Integumentary: Denies: OA, RA, DJD, DDD, edema, other Other: other - overweight PMH Narrative: as above PSxH Narrative: see H&P Anesthesia Pre-op Phys. Exam Physician Exam Last Vital Signs Date Time Temp Pulse Resp B/P (MAP) Pulse Ox O2 Delivery O2 Flow Rate FiO2 12/02/18 11:05 81 18 98 Room Air 21 12/02/18 00:00 98.2 130/92 (105) Constitutional: NAD Neurologic: CN 2-12 intact Cardiovascular: RRR, no M/R/G Respiratory: CTA Gastrointestinal: other - some tenderness Airway Exam Mallampati Score: Class II MO: limited Neck: flexible ROM: full Teeth: intact Dentures: no upper, no lower Anesthesia Pre-op A/P Labs Hematology Test 12/02/18 06:27 White Blood Count 7.4 K/UL (4.8-10.8) Red Blood Count 4.86 M/UL (4.20-5.40) Hemoglobin 14.5 G/DL (12.0-16.0) Hematocrit 43.4 % (37.0-47.0) Mean Corpuscular Volume 89 FL (80-99) Mean Corpuscular Hemoglobin 29.8 PG (27.0-31.0) Mean Corpuscular Hemoglobin Concent 33.4 G/DL (32.0-36.0) Red Cell Distribution Width 15.1 % (11.6-14.8) H Platelet Count 250 K/UL (150-450) Mean Platelet Volume 7.1 FL (6.5-10.1) Neutrophils (%) (Auto) 63.6 % (45.0-75.0) Lymphocytes (%) (Auto) 23.2 % (20.0-45.0) Monocytes (%) (Auto) 8.4 % (1.0-10.0) Eosinophils (%) (Auto) 3.5 % (0.0-3.0) H Basophils (%) (Auto) 1.3 % (0.0-2.0) Coagulation Test 12/02/18 06:27 Prothrombin Time 11.3 SEC (9.30-11.50) Prothromb Time International Ratio 1.1 (0.9-1.1) Activated Partial Thromboplast Time 38 SEC (23-33) H Chemistry Test 12/02/18 06:27 Sodium Level 136 MMOL/L (136-145) Potassium Level 3.6 MMOL/L (3.5-5.1) Chloride Level 99 MMOL/L (98-107) Carbon Dioxide Level 27 MMOL/L (21-32) Anion Gap 11 mmol/L (5-15) Blood Urea Nitrogen 8 mg/dL (7-18) Creatinine 0.8 MG/DL (0.55-1.30) Estimat Glomerular Filtration Rate > 60 mL/min (>60) Glucose Level 86 MG/DL (74-106) Hemoglobin A1c 6.4 % (4.3-6.0) H Calcium Level 9.2 MG/DL (8.5-10.1) Risk Assessment & Plan Assessment: ASA 2 Plan: MAC Status Change Before Surgery: No Pre-Antibiotics Drug: none Ishan Sesay MD Dec 02, 2018 12:06
--- NOTE | 2018-12-02 12:10 | Pre-Procedure Note/Attestation ---
Pre-Procedure Note/Attestation Complete Prior to Procedure Planned Procedure: not applicable Procedure Narrative: egd Indications for Procedure Pre-Operative Diagnosis: abd pain Attestation I attest that I discussed the nature of the procedure; its benefits; risks and complications; and alternatives (and the risks and benefits of such alternatives ), prior to the procedure, with the patient (or the patient's legal labor service representative). I attest that, if there was a reasonable possibility of needing a blood transfusion, the patient (or the patient's legal labor service representative) was given the [facility] standardized written summary, pursuant to the Harry Cesar Blood Safety Act ([place] Health and Safety Code # 1645, as amended). I attest that I re-evaluated the patient just prior to the surgery and that there has been no change in the patient's H&P, except as documented below: Jose David Munoz MD Dec 02, 2018 12:10
[2018-12-02] MEDS ORDERED: fentaNYL 100 mcg/2 mL IV PRN (12:15)
--- NOTE | 2018-12-02 12:15 | Endoscopy Procedure Note ---
Endoscopy Procedure Note General Indication for Procedure: abd pain Procedures Performed: EGD Operative Findings/Diagnosis: gastritis Specimen: yes Pt Tolerated Procedure Well: Yes Estimated Blood Loss: none Anesthesia Anesthesiologist: uzma Anesthesia: MAC Inserted Devices Implant(s) used?: No GI Core Measures 50 yrs or older w/o bx or poly: Not Applicable 10yrs. F/U not recommended: Not Applicable Jose David Munoz MD Dec 02, 2018 12:15
--- NOTE | 2018-12-02 12:26 | Immediate Post-Op Evaluation ---
Immediate Post-Op Evalulation Immediate Post-Op Evalulation Procedure: EGD with Bx Date of Evaluation: Dec 02, 2018 Time of Evaluation: 12:24 IV Fluids: 300 Blood Products: none Estimated Blood Loss: none Urinary Output: none Blood Pressure Systolic: 100 Blood Pressure Diastolic: 60 Pulse Rate: 72 Respiratory Rate: 20 O2 Sat by Pulse Oximetry: 99 Temperature (Fahrenheit): 97.8 Pain Score (1-10): 1 Nausea: No Vomiting: No Complications none Patient Status: reacts, patent, none Hydration Status: adequate Ishan Sesay MD Dec 02, 2018 12:26
--- NOTE | 2018-12-02 12:50 | NUR ---
NURSE NOTES: patient and family stated patient was diagnosed with UTI before hospital admission and prescribed antibiotics when she admitted medication discontinued and they want to know the indication. Dr. mclaughlin notified including current lab result.
--- NOTE | 2018-12-02 13:16 | 48 Hour Post Anesthesia Eval ---
Post Anesthesia Evaluation Procedure: EGD with Bx Date of Evaluation: Dec 02, 2018 Time of Evaluation: 13:15 Blood Pressure Systolic: 116 0: 72 Pulse Rate: 68 Respiratory Rate: 20 Temperature (Fahrenheit): 97.6 O2 Sat by Pulse Oximetry: 98 Airway: patent Nausea: No Vomiting: No Pain Intensity: 1 Hydration Status: adequate Cardiopulmonary Status: stable Mental Status/LOC: patient returned to baseline Follow-up Care/Observations: n/a Post-Anesthesia Complications: none Follow-up care needed: N/A Ishan Sesay MD Dec 02, 2018 13:16
[2018-12-02] MEDS: HYDROcodone/Acetamin 5/325 tab ORAL PRN (13:37)
--- NOTE | 2018-12-02 14:30 | NUR ---
NURSE NOTES: Received patient from GI lab awake alert with out no distress able to void, no nausea or vomiting reported. able to eat lunch pain medication requested and given. 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 will continue to monitor.
[2018-12-02] MEDS ORDERED: Ketorolac 30mg Inj IV SCH (17:45)
[2018-12-02] MEDS ORDERED: Ketorolac 30mg Inj IV PRN (17:54)
--- NOTE | 2018-12-02 19:39 | NUR ---
HAND-OFF: Report given to WAYNE Shepherd patient awake stable family at bedside.
--- NOTE | 2018-12-02 19:40 | NUR ---
NURSE NOTES: Received a report from WAYNE Perez. Pt is in stable condition. AAOX4. Able to make needs known. No respiratory distress noted. No c/o pain/discomfort. IV site is patent and intact. Family member at the bedside. Bed in lowest position. Call light within reach. Will continue to monitor.
--- NOTE | 2018-12-02 22:30 | Procedure Note ---
DATE OF PROCEDURE: 12/02/2018 SURGEON: Jose David Munoz M.D. ANESTHESIOLOGIST: Dr. Sesay. REFERRING PHYSICIAN: Marcelo Valle M.D. PROCEDURE: Upper endoscopy with biopsy. ANESTHESIA: Per Dr. Sesay. INSTRUMENT: Olympus adult flexible upper endoscope. INDICATION: Abdominal pain. The procedure, risks, benefits, and possible consequences, including hemorrhage, aspiration, perforation and infection, and alternative treatments, were explained to the patient/legal guardian by Dr. Jose David Munoz and the patient/legal guardian understood and accepted these risks. DESCRIPTION OF PROCEDURE: After informed consent was obtained and the patient was adequately sedated, Olympus upper endoscope was advanced from the mouth into the second portion of duodenum and retroflexion was performed in the stomach. The patient had evidence of diffuse gastritis. Random biopsy from antrum and body was obtained to rule out H. pylori infection. Otherwise, the rest of upper endoscopic examination grossly looked within normal limit. The patient tolerated the procedure very well without any complication. SUMMARY OF FINDINGS: Gastritis, status post biopsy. RECOMMENDATIONS: Follow up biopsy results and treat accordingly. We will resume diet. I want to thank Dr. Valle for this kind referral. Jose David Munoz M.D. DR: Dennise JOB#: [id number] CC: Rocky Valle M.D.; Fax#: [phone]
[2018-12-03 00:04] VITALS: BP 121/75
--- NOTE | 2018-12-03 02:30 | Progress Note ---
DATE: 12/02/2018 SUBJECTIVE: This is a 43-year-old female who had recurrent nausea and vomiting, unable to eat, mild left-sided upper abdominal pain and lower back pain. She has no fever. No chills. PHYSICAL EXAMINATION: VITAL SIGNS: Blood pressure is 121/75, pulse 77, no fever. CHEST: Bilaterally clear. CARDIOVASCULAR: Regular rhythm. ABDOMEN: Soft. EXTREMITIES: No CCE. LABORATORY AND DIAGNOSTIC DATA: White counts are normal. Hemoglobin 6.4. ASSESSMENT: 1. Recurrent nausea and vomiting, status post EGD with gastritis. 2. PE. 3. syndrome. PLAN: 1. We will currently continue Xarelto, added Reglan. 2. GI is on case. 3. Continue to increase p.o. fluids. Rocky Valle M.D. DR: Stephanie JOB#: [id number] CC:
[2018-12-03 04:00] VITALS: BP 130/79
[2018-12-03] MEDS: Albuterol/Ipratropium 3ml neb HHN SCH ×3 (04:08→10:40)
--- NOTE | 2018-12-03 07:20 | NUR ---
HAND-OFF: Report given to WAYNE Perez.
[2018-12-03 07:31] LABS: ANION GAP 12 mmol/L (5-15); BLOOD UREA NITROGEN 8 mg/dL (7-18); CALCIUM 9.3 MG/DL (8.5-10.1); CARBON DIOXIDE 26 MMOL/L (21-32); CHLORIDE 101 MMOL/L (98-107); CREATININE 0.8 MG/DL (0.55-1.30); POTASSIUM 3.3 MMOL/L (3.5-5.1); SODIUM 139 MMOL/L (136-145)
[2018-12-03 07:55] LABS: BASOPHILS % (AUTO) 1.7 % (0.0-2.0); EOSINOPHILS % (AUTO) 4.5 % (0.0-3.0); HEMATOCRIT 39.9 % (37.0-47.0); HEMOGLOBIN 13.2 G/DL (12.0-16.0); LYMPHOCYTES % (AUTO) 20.4 % (20.0-45.0); MEAN CORPUSCULAR VOLUME 89 FL (80-99); MONOCYTES % (AUTO) 9.3 % (1.0-10.0); NEUTROPHILS % (AUTO) 64.1 % (45.0-75.0); PLATELET COUNT 222 K/UL (150-450); RED BLOOD COUNT 4.48 M/UL (4.20-5.40); RED CELL DISTRIBUTION WIDTH 14.6 % (11.6-14.8); WHITE BLOOD COUNT 6.9 K/UL (4.8-10.8)
[2018-12-03 08:00] VITALS: BP 140/86
--- NOTE | 2018-12-03 08:00 | NUR ---
NURSE NOTES: During shift change patient alert awake with out no distress call light with in reach bed in low position and locked, will continue to monitor.
[2018-12-03] MEDS: Docusate 100mg cap ORAL SCH (08:39)
[2018-12-03] MEDS: Eliquis 2.5mg tablet ORAL SCH (08:39)
--- NOTE | 2018-12-03 10:30 | NUR ---
RADIOLOGY DEPT., CHEST X-RAY DONE.-P.DYE
--- NOTE | 2018-12-03 10:33 | Diagnostic Imaging Report ---
Indication: Cough Technique: 2 views of the chest Comparison: Findings: The lungs and pleural spaces are clear. The heart size is normal. There is evidence of prior CABG. The bones are unremarkable Impression: No acute process
--- NOTE | 2018-12-03 11:20 | GI Progress Note ---
Assessment/Plan Problems: (1) Abdominal pain ICD Codes: R10.9 - Unspecified abdominal pain SNOMED: 71249026 (2) Generalized weakness ICD Codes: R53.1 - Weakness SNOMED: 83830799 (3) Cholelithiasis ICD Codes: K80.20 - Calculus of gallbladder without cholecystitis without obstruction SNOMED: 550412215 Status: stable Status Narrative Discussed with Dr. Munoz. Assessment/Plan history of PE 2009, on Eliquis s/p EGD SUMMARY OF FINDINGS: Gastritis, status post biopsy. Abdominal pelvic CT reviewed >> - Stranding of the periaortic fat. Prominent para-aortic and pericaval lymph nodes This suggests inflammatory change in this region, nature of which is uncertain. The possibility of aortitis should be considered, among other possibilities. - Colonic diverticulosis. No evidence of diverticulitis - Cholelithiasis - Basilar pulmonary fibrotic changes. Reticular interstitial opacities and airspace opacities may indicate a component of acute disease as well. - Cardiomegaly Abdominal Ultrasound reviewed >> Cholelithiasis. Negative for biliary ductal dilatation RECOMMENDATIONS: advance diet pain mgmt Follow up biopsy results and treat accordingly. ppi zofran prn follow labs The patient was seen and examined at bedside and all new and available data was reviewed in the patients chart. I agree with the above findings, impression and plan. (Patient seen earlier today. Signature stamp does not reflect patient encounter time.). - Jose David Munoz MD Subjective Subjective abdominal pain improved, has c/o of back and flank pain Objective Last 24 Hour Vital Signs Date Time Temp Pulse Resp B/P (MAP) Pulse Ox O2 Delivery O2 Flow Rate FiO2 12/03/18 09:00 Room Air 12/03/18 07:57 Room Air 12/03/18 07:57 Room Air 12/03/18 04:18 78 20 99 Room Air 21 12/03/18 04:07 67 20 93 Room Air 21 12/03/18 04:00 98.1 89 18 130/79 (96) 98 12/03/18 00:04 97.9 94 20 121/75 (90) 97 12/02/18 22:56 84 20 99 Room Air 21 12/02/18 22:46 84 20 95 Room Air 21 12/02/18 21:00 Room Air 12/02/18 20:00 97.9 84 18 140/85 (103) 98 12/02/18 19:54 80 20 99 Room Air 21 12/02/18 19:31 89 20 94 Room Air 21 12/02/18 15:50 76 21 98 Room Air 21 12/02/18 15:40 70 21 97 Room Air 21 12/02/18 14:15 97.2 12/02/18 14:00 97.4 77 18 121/75 (90) 95 12/02/18 13:30 97.6 74 18 119/69 (86) 98 12/02/18 13:17 97.2 71 18 122/61 100 1 12/02/18 13:16 68 20 98 12/02/18 13:00 75 15 126/72 100 75 12/02/18 12:50 72 18 124/67 100 72 12/02/18 12:40 77 20 117/67 100 77 12/02/18 12:35 71 17 120/65 100 71 12/02/18 12:26 72 20 99 12/02/18 12:24 97.6 76 20 104/76 100 76 12/02/18 12:00 98.3 83 18 127/79 (95) 97 Intake and Output 12/02/18 12/03/18 18:59 06:59 Intake Total 50 ml 360 ml Balance 50 ml 360 ml Intake Oral 360 ml IV Total 50 ml # Voids 2 Laboratory Tests Test 12/03/18 06:51 White Blood Count 6.9 K/UL (4.8-10.8) Red Blood Count 4.48 M/UL (4.20-5.40) Hemoglobin 13.2 G/DL (12.0-16.0) Hematocrit 39.9 % (37.0-47.0) Mean Corpuscular Volume 89 FL (80-99) Mean Corpuscular Hemoglobin 29.4 PG (27.0-31.0) Mean Corpuscular Hemoglobin Concent 33.0 G/DL (32.0-36.0) Red Cell Distribution Width 14.6 % (11.6-14.8) Platelet Count 222 K/UL (150-450) Mean Platelet Volume 6.6 FL (6.5-10.1) Neutrophils (%) (Auto) 64.1 % (45.0-75.0) Lymphocytes (%) (Auto) 20.4 % (20.0-45.0) Monocytes (%) (Auto) 9.3 % (1.0-10.0) Eosinophils (%) (Auto) 4.5 % (0.0-3.0) H Basophils (%) (Auto) 1.7 % (0.0-2.0) Sodium Level 139 MMOL/L (136-145) Potassium Level 3.3 MMOL/L (3.5-5.1) L Chloride Level 101 MMOL/L (98-107) Carbon Dioxide Level 26 MMOL/L (21-32) Anion Gap 12 mmol/L (5-15) Blood Urea Nitrogen 8 mg/dL (7-18) Creatinine 0.8 MG/DL (0.55-1.30) Estimat Glomerular Filtration Rate > 60 mL/min (>60) Glucose Level 92 MG/DL (74-106) Calcium Level 9.3 MG/DL (8.5-10.1) Height (Feet): 5 Height (Inches): 5.00 Weight (Pounds): 138 General Appearance: WD/WN, no apparent distress, alert Cardiovascular: normal rate Respiratory/Chest: normal breath sounds, no respiratory distress Abdominal Exam: normal bowel sounds, non tender, soft Extremities: normal range of motion, non-tender Myles Garcia NP Dec 03, 2018 11:20
[2018-12-03 12:08] VITALS: BP 146/93
--- NOTE | 2018-12-03 13:00 | Consultation ---
Consult Note Assessment/Plan dict CXR neg OK for dc PE, DVT gastritis pulm HTN HTN Juan Armstrong MD Dec 03, 2018 13:00
[2018-12-03] MEDS ORDERED: PROTONIX40 MG ORAL (13:48)
--- NOTE | 2018-12-03 14:04 | NUR ---
CHARGE NURSE NOTE: Spoke with , clarifying home meds. Pt is not taking Warfarin anymore, she is on Xarelto at home. was not able to change discharge med. recon. It's been finalized. Spoke with patient, discussed home meds. She verbalized understanding.
--- NOTE | 2018-12-03 14:35 | NUR ---
NURSE NOTES: Patient discharged from the unit stable condition with out no distress, discharge instruction, belongings and home medication given. during discharge pt. accompanied by spouse. patient instructed to follow MD discharge instruction, to stop Warfarin and use Xarelto, and to follow up with Dr. Valle after one week patient verbalized understanding. transported from the unit to the personal vehicle by RN and transferred to the care safely.
--- NOTE | 2018-12-03 17:51 | NUR ---
P.T NOTE:LATE ENTRY 0945 P.T EVALUATION COMPLETED. PATIENT IS CURRENTLY AT BASINE INDEPENDENT WITH FUNCTIONAL MOBILITIES AND GAIT/LOCOMOTION THEREFORE SKILLED P.T SERVICE IS NOT WARRANTED AT THIS TIME. D/C P.T SERVICES . THANK YOU FOR THIS REFERRAL.
--- NOTE | 2018-12-03 19:45 | Progress Note ---
DATE: 12/03/2018 SUBJECTIVE: The patient is currently feeling better. Nausea and vomiting is also improving. The patient complains of left-sided lower chest and abdominal pain. No fever. No chills. Tolerating diet. Shortness of breath is better. PHYSICAL EXAMINATION: VITAL SIGNS: Blood pressure 130/79, pulse 78, respirations 20, temperature, no fever. HEENT: NAD. CHEST: Bilateral few crackles. CARDIOVASCULAR: Regular rhythm. ABDOMEN: Soft. EXTREMITIES: CCE. NEUROLOGICAL: Generalized weakness. LABORATORY EXAMINATION: White counts are 6.9, hemoglobin 13, hematocrit 39, platelets are 22,000. Chemistry; sodium 139, potassium 3.3, BUN 8.8, creatinine 0.8. Urine cultures ASSESSMENT: 1. UTI. 2. Acute bronchitis. 3. syndrome. 4. PE. 5. Hypertension. PLAN: 1. We will add prednisone. 2. Also replace potassium. 3. Discharge plan home. 4. Pulmonary consult. 5. Follow as an outpatient. 6. Also added Reglan 5 mg twice a day for nausea and vomiting and prednisone 10 mg daily. 7. Continue Xarelto. 8. The patient was explained risks versus benefit for prednisone as well as well as Xarelto. DIET: She is on regular diet. ACTIVITY: As tolerated. DISCHARGE MEDICATION: The patient is going to continue home medications plus she is taking prednisone 10 mg daily and Xarelto 15 mg daily, Reglan 5 mg twice a day. Follow up as outpatient in office in one week. Rocky Valle M.D. DR: Stephanie JOB#: [id number] CC:
--- NOTE | 2018-12-03 20:45 | Consultation ---
DATE OF CONSULTATION: 12/03/2018 PULMONARY CONSULTATION CONSULTING PHYSICIAN: Juan Armstrong M.D. REFERRING PHYSICIAN: Marcelo Valle M.D. HISTORY OF PRESENT ILLNESS: The patient is a 43-year-old woman who is chronically disabled. She was hospitalized recently at [facility] earlier this month for chest pain. She has a known pulmonary emboli and had recurrent deep vein thrombosis, on Coumadin. She was discharged on Xarelto. On this occasion, she presented to the emergency room with abdominal pain. She was evaluated by Gastroenterology and endoscopy was performed. She had gastritis identified. Now, she is complaining of pain in her neck and face and various other parts of her body. She does not have respiratory distress or hemoptysis. PAST MEDICAL HISTORY: Hypertension, pulmonary embolism, Takayasu arteritis, deep vein thrombosis, past thrombectomy and sternotomy in [place]. MEDICATIONS: Reviewed. She is on anticoagulants. PHYSICAL EXAMINATION: GENERAL: The patient is alert and responds appropriately. She seems depressed. She is well developed and well nourished. VITAL SIGNS: Blood pressure is somewhat elevated. There is no fever. HEENT: Head is normocephalic. NECK: No jugular venous distention or lymphadenopathy. CHEST: Few rales in the bases. CARDIAC: Rhythm is regular. ABDOMEN: Soft. EXTREMITIES: No clubbing, cyanosis, or edema. No signs of acute phlebitis. IMPRESSION: 1. History of pulmonary embolism and deep vein thrombosis, now on anticoagulants. 2. Status post embolectomy. 3. Pulmonary hypertension. 4. Hypertension. 5. Takayasu arteritis. PLAN: We will get a chest x-ray to be sure that there are no intercurrent pulmonary processes evident. If this is negative, then early discharge is anticipated. She should be on lifelong anticoagulation such as Xarelto or Eliquis. Thanks for asking me to see her in consultation. Juan Armstrong M.D. DR: MARCUS JOB#: [id number] CC: Juan Armstrong M.D.; Fax#: [phone]
--- NOTE | 2018-12-04 10:05 | Discharge Summary ---
Discharge Summary Discharge Summary _ DATE OF ADMISSION: 11/30/2018 DATE OF DISCHARGE: 12/03/2018 DISCHARGED BY: Dr. Rocky Valle CONSULTANTS: Dr. Mabel Armstrong BRIEF HOSPITAL COURSE: Patient is a 43-year-old female, who presented to ED complaining of shortness of breath, cough, and recurrent back pain that has been progressively worse. There was no fever or chills. Reported increased abdominal pain and increased bilateral flank pain. She was recently treated for urinary tract infection. She ordered history of pulmonary embolism, currently on anticoagulation with Coumadin. She reported nausea and vomiting. Denied diarrhea. She had gradual onset of symptoms. She has medical history significant for hypertension, arthritis, and borderline diabetes. On evaluation at ED, blood pressure was stable, although was a little bradycardic. Blood work did not show any leukocytosis. Hemoglobin and hematocrit were stable. Sodium was 131, potassium 3.5. Total bilirubin was elevated to 1.5, direct bilirubin was normal. LFTs and lipase were normal. Patient was recently diagnosed with UTI. Urinalysis showed 1+ blood, negative nitrite, 2+ leukocyte esterase, 0-2 RBC, 5-10 WBC with area. Urine toxicology screen was positive for opiates. CT of the abdomen and pelvis showed multiple gallbladder stones. Abdominal ultrasound was negative for biliary ductal dilatation. Positive for cholelithiasis. Head CT was normal with incidental findings of sinus disease. Influenza screen negative. She was started on IV Rocephin. She was admitted for evaluation of abdominal pain, generalized weakness, cholelithiasis. GI was consulted. Patient was given symptomatic treatment with Zofran. She was placed on proton pump inhibitor. Eliquis was placed on hold prior to EGD. On 12/02/2018, she underwent endoscopy with biopsy by Dr. Munoz. Patient had evidence of diffuse gastritis, the rest of upper endoscopic examination looked grossly normal within normal limits. Basting Cleaner was consulted. Patient had a history of PE and DVT. She was recommended lifelong anticoagulation. Chest x-ray showed no acute process. Biopsy results was negative for H. pylori. Negative for intestinal metaplasia, dysplasia or malignancy. Urine culture did not isolate any growth. She was cleared for discharge home. FINAL DIAGNOSES: Abdominal pain due to gastritis and cholelithiasis UTI Acute bronchitis Hypertension Prior PE and DVT, on anticoagulation Pulmonary hypertension Hypertension Takayasu arteritis Status post EGD on 12/02/2018 Generalized weakness DISPOSITION: Patient was discharged home. DISCHARGE MEDICATIONS: Refer to Discharge Medication List. DISCHARGE INSTRUCTIONS: Follow-up in a week. I have been assigned to complete a discharge summary on this account, I was not involved with the patient's management. Vane Little NP Dec 04, 2018 10:05
== END 2018-12-03 14:40 | disposition home or self-care (01) | DRG 445 ==
LOC: EMR 12:27 → EDBEDREQ 14:40 → 3E 14:59
DX: K80.10 Calculus of gallbladder with chronic cholecystitis without obstruction (principal); N39.0 Urinary tract infection, site not specified; M31.4 Aortic arch syndrome [Takayasu]; J20.9 Acute bronchitis, unspecified; I10 Essential (primary) hypertension; G89.29 Other chronic pain; M54.9 Dorsalgia, unspecified; Z86.711 Personal history of pulmonary embolism; Z79.01 Long term (current) use of anticoagulants; R73.03 Prediabetes; Z86.718 Personal history of other venous thrombosis and embolism; I27.20 Pulmonary hypertension, unspecified; K29.70 Gastritis, unspecified, without bleeding; Z88.6 Allergy status to analgesic agent; R53.1 Weakness; K27.9 Peptic ulcer, site unspecified, unspecified as acute or chronic, without hemorrhage or perforation; R51 Headache
CPT/HCPCS: 36415; 70450; 71046; 74176; 76700; 80048; 80053; 80307; 81003; 82248; 83036; 83690; 85025; 85610; 85730; 86710; 87086; 94003; 94150; 94640; 94664; 96365; 96375; 99285; J2250; J2405; J7620; J8499

== ENCOUNTER 2019-05-23 08:09 | Emergency (ER) | payer MEDICARE, OTHER ==
[~2019-05-23] VITALS: Ht 154.9 cm; Wt 64.4 kg
[~2019-05-23 08:09] MED LIST changes: +COUMADIN7.5 MG ORAL; +FOLIC ACID1 MG ORAL; +PROTONIX40 MG ORAL; +TENORMIN50 MG ORAL; +TRAMADOL HCL50 MG ORAL
--- NOTE | 2019-05-23 08:31 | NUR ---
ED Nurse Note:pt. came from home with c/o left upper abdominal pain radiating to her back, also n/v, seen by ER MD, pt. was placed on garment parts cutter hand
[2019-05-23] MEDS ORDERED: PREDNISONE10 MG ORAL (08:36)
[2019-05-23] MEDS ORDERED: METFORMIN HCL500 M1 ORAL (08:36)
--- NOTE | 2019-05-23 08:41 | NUR ---
ED Nurse Note:blood and urine sent to labs, pt. receiving IV fluids
[2019-05-23 08:43] VITALS: BP 133/83
[2019-05-23 09:00] LABS: EOSINOPHILS % (AUTO) 2.4 % (0.0-3.0); HEMATOCRIT 40.4 % (37.0-47.0); HEMOGLOBIN 12.7 G/DL (12.0-16.0); LYMPHOCYTES % (AUTO) 21.6 % (20.0-45.0); MEAN CORPUSCULAR VOLUME 89 FL (80-99); MONOCYTES % (AUTO) 7.4 % (1.0-10.0); NEUTROPHILS % (AUTO) 67.6 % (45.0-75.0); PLATELET COUNT 355 K/UL (150-450); RED BLOOD COUNT 4.54 M/UL (4.20-5.40); RED CELL DISTRIBUTION WIDTH 13.9 % (11.6-14.8); WHITE BLOOD COUNT 9.3 K/UL (4.8-10.8)
[2019-05-23] MEDS ORDERED: Dicyclomine HCl 10mg/5ml oral soln ORAL ONE (09:15)
[2019-05-23] MEDS ORDERED: Mylanta II UD 30ml ORAL ONE (09:15)
[2019-05-23 09:30] LABS: ALANINE AMINOTRANSFERASE 17 U/L (12-78); ALBUMIN 3.3 G/DL (3.4-5.0); ALBUMIN/GLOBULIN RATIO 0.7 (1.0-2.7); ALKALINE PHOSPHATASE 67 U/L (46-116); ANION GAP 8 mmol/L (5-15); ASPARTATE AMINO TRANSFERASE 17 U/L (15-37); BILIRUBIN,TOTAL 0.8 MG/DL (0.2-1.0); BLOOD UREA NITROGEN 9 mg/dL (7-18); CALCIUM 9.1 MG/DL (8.5-10.1); CARBON DIOXIDE 27 MMOL/L (21-32); CHLORIDE 104 MMOL/L (98-107); CKMB < 0.5 NG/ML (0.0-3.6); CREATINE KINASE 58 U/L (26-308); CREATININE 0.8 MG/DL (0.55-1.30); POTASSIUM 3.3 MMOL/L (3.5-5.1); SODIUM 139 MMOL/L (136-145)
--- NOTE | 2019-05-23 10:25 | NUR ---
ED Nurse Note:pt. is asleep, no signs of pain or distress noted
--- NOTE | 2019-05-23 10:35 | Emergency Room Report ---
History of Present Illness General Chief Complaint: Abdominal Pain Source: Patient, Medical Record Present Illness HPI Patient presents with complaints of general weakness Patient also complains of left upper chest pain Feeling short of breath Denies any vomiting or diarrhea denies any fevers denies any neck pain or photophobia however she does also complain of diffuse headache Denies any recent travel denies any rash patient does describe a pleuritic component with her Left upper chest pain Denies any focal weakness however feels generally malaised Allergies: Coded Allergies: MORPHINE (Verified Allergy, Severe, CONVULSIONS, 10/26/17) Patient History Past Medical History: see triage record Last Menstrual Period: 3 years ago Reviewed Nursing Documentation: PMH: Agreed; PSxH: Agreed Nursing Documentation-PMH Hx Cardiac Problems: Yes - Takayasus Arteritis Hx Hypertension: Yes - Arthritis Hx Pacemaker: No Hx Asthma: No Hx COPD: No Hx Diabetes: No Hx Cancer: No Hx Gastrointestinal Problems: Yes - gallstones Hx Dialysis: No History Of Psychiatric Problem: No Hx Neurological Problems: No Hx Cerebrovascular Accident: No Hx Seizures: No Review of Systems All Other Systems: negative except mentioned in HPI Physical Exam Vital Signs Date Time Temp Pulse Resp B/P (MAP) Pulse Ox O2 Delivery O2 Flow Rate FiO2 05/23/19 08:11 98.1 56 18 183/94 (123) 96 Room Air Sp02 EP Interpretation: reviewed, normal General Appearance: well appearing, no apparent distress Head: normocephalic, atraumatic Eyes: bilateral eye PERRL, bilateral eye EOMI ENT: hearing grossly normal, normal pharynx, TMs + canals normal, uvula midline Neck: full range of motion, supple, no meningismus, no bony tend Respiratory: lungs clear, normal breath sounds, no rhonchi, no respiratory distress, no retraction, no accessory muscle use Cardiovascular #1: normal peripheral pulses, regular rate, rhythm, no edema, no gallop, no JVD, no murmur Gastrointestinal: normal bowel sounds, non tender, soft, no mass, no organomegaly, non-distended, no guarding, no hernia, no pulsatile mass, no rebound Genitourinary: no CVA tenderness Musculoskeletal: normal inspection Neurologic: oriented x3, responsive, pcb design engineer III-XII nml as tested, motor strength/ tone normal, sensory intact Psychiatric: mood/affect normal Skin: no rash Lymphatic: normal inspection, no adenopathy Medical Decision Making ER Course Patient is a fairly complex patient with multiple differential to consideration including but not limited to cardiac cardiopulmonary and vascular emergencies After further discussion with the patient and discussing concern for possible pulmonary embolism Patient reports that she was at [facility] recently had CT of her head And CT of her chest to rule out Pulmonary embolism which were negative Labs Test 05/23/19 07:45 White Blood Count 9.3 K/UL (4.8-10.8) Red Blood Count 4.54 M/UL (4.20-5.40) Hemoglobin 12.7 G/DL (12.0-16.0) Hematocrit 40.4 % (37.0-47.0) Mean Corpuscular Volume 89 FL (80-99) Mean Corpuscular Hemoglobin 27.9 PG (27.0-31.0) Mean Corpuscular Hemoglobin Concent 31.4 G/DL (32.0-36.0) Red Cell Distribution Width 13.9 % (11.6-14.8) Platelet Count 355 K/UL (150-450) Mean Platelet Volume 5.8 FL (6.5-10.1) Neutrophils (%) (Auto) 67.6 % (45.0-75.0) Lymphocytes (%) (Auto) 21.6 % (20.0-45.0) Monocytes (%) (Auto) 7.4 % (1.0-10.0) Eosinophils (%) (Auto) 2.4 % (0.0-3.0) Basophils (%) (Auto) 1.0 % (0.0-2.0) Urine HCG, Qualitative Negative (NEGATIVE) Sodium Level 139 MMOL/L (136-145) Potassium Level 3.3 MMOL/L (3.5-5.1) Chloride Level 104 MMOL/L (98-107) Carbon Dioxide Level 27 MMOL/L (21-32) Anion Gap 8 mmol/L (5-15) Blood Urea Nitrogen 9 mg/dL (7-18) Creatinine 0.8 MG/DL (0.55-1.30) Estimat Glomerular Filtration Rate > 60 mL/min (>60) Glucose Level 108 MG/DL (74-106) Calcium Level 9.1 MG/DL (8.5-10.1) Total Bilirubin 0.8 MG/DL (0.2-1.0) Aspartate Amino Transf (AST/SGOT) 17 U/L (15-37) Alanine Aminotransferase (ALT/SGPT) 17 U/L (12-78) Alkaline Phosphatase 67 U/L (46-116) Total Creatine Kinase 58 U/L (26-308) Creatine Kinase MB < 0.5 NG/ML (0.0-3.6) Creatine Kinase MB Relative Index 0.8 Troponin I 0.000 ng/mL (0.000-0.056) Total Protein 8.0 G/DL (6.4-8.2) Albumin 3.3 G/DL (3.4-5.0) Globulin 4.7 g/dL Albumin/Globulin Ratio 0.7 (1.0-2.7) Lipase 287 U/L (73-393) Thyroid Stimulating Hormone (TSH) 0.546 uiU/mL (0.358-3.740) Free Thyroxine 0.91 NG/DL (0.76-1.46) Last Vital Signs Date Time Temp Pulse Resp B/P (MAP) Pulse Ox O2 Delivery O2 Flow Rate FiO2 05/23/19 08:43 98.1 56 18 133/83 96 Room Air Scripts Hydrocodone Bit/Acetaminophen 5-325* (NORCO 5-325*) 1 Each Tablet 1 TAB ORAL Q6H PRN for For Pain, #10 TAB 0 Refills Prov: Jessica De La Fuente DO 05/23/19 Referrals: Marcelo Valle MD (PCP) Jessica De La Fuente DO May 23, 2019 10:35
--- NOTE | 2019-05-23 10:50 | Diagnostic Imaging Report ---
EXAM: XR Chest, 1 View CLINICAL HISTORY: CP TECHNIQUE: Frontal view of the chest. COMPARISON: Chest x-ray, 12/03/18 FINDINGS: Lungs: Mild central vascular prominence. Right lung base atelectasis. Pleural space: Unremarkable. No pneumothorax. Heart: Mild cardiomegaly. Mediastinum: Unremarkable. Bones/joints: Median sternotomy. IMPRESSION: Evidence of prior CABG. Mild central vascular prominence. Right lung base atelectasis.
[2019-05-23] MEDS ORDERED: NORCO 5-325 TA1 EACH ORAL (12:15)
[2019-05-23 12:24] VITALS: BP 133/83
--- NOTE | 2019-05-23 12:30 | NUR ---
ER DISCHARGE NOTE: Patient is cleared to be discharged per ERMD, pt is aox4, on room air, with stable vital signs. pt was given dc and prescription instructions, pt was able to verbalize understanding, pt id band and iv site removed without complications. pt is able to ambulate with steady gait. pt took all belongings.
[2019-05-23 12:40] VITALS: BP 133/83
--- NOTE | 2019-05-24 15:17 | Cardiology Report ---
APPROVED REPORT EKG Measurement Heart [id number] Sinus bradycardia Nonspecific ST and T wave abnormality Abnormal ECG
== END 2019-05-23 12:41 | disposition home or self-care (01) ==
LOC: EMR 08:26
DX: R07.9 Chest pain, unspecified (principal); R53.1 Weakness; M19.90 Unspecified osteoarthritis, unspecified site; Z88.6 Allergy status to analgesic agent
CPT/HCPCS: 36415; 71045; 80053; 81025; 82550; 82553; 83690; 84439; 84443; 84484; 85025; 93005; 96374; 99284; S0028

== ENCOUNTER 2019-05-29 04:36 | Emergency (ER) | payer MEDICARE, OTHER ==
[~2019-05-29] VITALS: Ht 152.4 cm; Wt 64.4 kg
[~2019-05-29 04:36] MED LIST changes: +METFORMIN HCL500 M1 ORAL; +NORCO 5-325 TA1 EACH ORAL; +PREDNISONE10 MG ORAL
[2019-05-29 04:53] VITALS: BP 140/75
--- NOTE | 2019-05-29 05:12 | Emergency Room Report ---
History of Present Illness General Chief Complaint: Pain Source: Patient, Medical Record Present Illness HPI 44-year-old female with a history of PE and currently on Coumadin. She presents with complaint of left-sided chest pain/rib pain. Onset fell 3 to 4 weeks now. She been to [facility] and had work-up negative for PE with CT scan. She is been here last week for the same thing. Said pain is not getting better. Pain is sharp in nature. Localized to the left side. Pain is 9 out of 10. No nausea no vomiting. Worse with movement. No other complaint. Allergies: Coded Allergies: MORPHINE (Verified Allergy, Severe, CONVULSIONS, 10/26/17) Patient History Past Medical History: see triage record, old chart reviewed Past Surgical History: other Pertinent Family History: none Social History: Denies: smoking Now: No Immunizations: other Reviewed Nursing Documentation: PMH: Agreed; PSxH: Agreed Nursing Documentation-PMH Past Medical History: No History, Except For Hx Cardiac Problems: Yes - Takayasus Arteritis Hx Hypertension: Yes - Arthritis Hx Pacemaker: No Hx Asthma: No Hx COPD: No Hx Diabetes: No Hx Cancer: No Hx Gastrointestinal Problems: Yes - gallstones Hx Dialysis: No Hx Neurological Problems: No Hx Cerebrovascular Accident: No Hx Seizures: No Review of Systems Eye: Denies: eye pain, blurred vision ENT: Denies: ear pain, nose congestion, throat swelling Respiratory: Denies: cough, shortness of breath Cardiovascular: Reports: chest pain Gastrointestinal: Denies: abdominal pain, diarrhea, nausea, vomiting Musculoskeletal: Denies: back pain, joint pain Skin: Denies: rash Neurological: Denies: headache, numbness Endocrine: Denies: increased thirst, increased urine Hematologic/Lymphatic: Denies: easy bruising All Other Systems: negative except mentioned in HPI Physical Exam Vital Signs Date Time Temp Pulse Resp B/P (MAP) Pulse Ox O2 Delivery O2 Flow Rate FiO2 05/29/19 04:41 97.9 60 18 140/75 (96) 97 Room Air Vitals normal Sp02 EP Interpretation: reviewed, normal General Appearance: well appearing, no apparent distress, alert Head: normocephalic, atraumatic Eyes: bilateral eye PERRL, bilateral eye EOMI ENT: hearing grossly normal, normal pharynx Neck: full range of motion, supple, no meningismus Respiratory: chest non-tender, lungs clear, normal breath sounds Cardiovascular #1: regular rate, rhythm, no murmur Gastrointestinal: normal bowel sounds, non tender, no mass, no organomegaly, no bruit, non-distended Musculoskeletal: back normal, gait/station normal, normal range of motion Psychiatric: mood/affect normal Medical Decision Making Diagnostic Impression: Primary Impression: Chest pain of uncertain etiology ER Course Resents with chest pain. This is a chronic issue. No evidence of ACS, PE, dissection to name a few. She had negative CT chest recently. With therapeutic INR, PE is unlikely. Will discharge home. Pain is well controlled now. Rhythm Strip Diag. Results EP Interpretation: yes Rate: 60 Rhythm: NSR, no PVC's, no ectopy Last Vital Signs Date Time Temp Pulse Resp B/P (MAP) Pulse Ox O2 Delivery O2 Flow Rate FiO2 05/29/19 04:53 97.9 18 140/75 97 Room Air 05/29/19 04:41 60 Status: improved Disposition: HOME, SELF-CARE Condition: Stable Scripts Hydrocodone/Acetaminophen 5-325* (HYDROCODONE/ACETAMINOPHEN 5-325*) 1 Each Tablet 1 TAB ORAL Q6H PRN for For Pain, #20 TAB 0 Refills Prov: Joshua Garcia MD 05/29/19 Referrals: Marcelo Valle MD (PCP) Additional Instructions: Follow-up with your doctor in 7 days. Return if symptoms worsen. Joshua Garcia MD May 29, 2019 05:12
[2019-05-29] MEDS ORDERED: HYDROmorphone 1mg/ml Carpuject IVP ONE (05:15)
--- NOTE | 2019-05-29 05:23 | NUR ---
ED Nurse Note: Patient walked in to ER c/o CP, SOB, N/V. Stated that was here at [facility] ER couple days ago and ER DR. LIPSCOMB her. AAO x4. VSS at this time, skin is dry warm to touch. Patient presented resstless, anxious, with SOB due to pain.
[2019-05-29 05:48] LABS: APPEARANCE,URINE CLEAR; BASOPHILS % (AUTO) 1.5 % (0.0-2.0); BILIRUBIN, URINE NEGATIVE (NEGATIVE); COLOR,URINE PALE YELLOW; EOSINOPHILS % (AUTO) 1.4 % (0.0-3.0); GLUCOSE, URINE (UA) NEGATIVE (NEGATIVE); HEMATOCRIT 41.6 % (37.0-47.0); HEMOGLOBIN 13.2 G/DL (12.0-16.0); KETONES,URINE NEGATIVE (NEGATIVE); LEUKOCYTE ESTERASE ,URINE 1+ (NEGATIVE); LYMPHOCYTES % (AUTO) 19.1 % (20.0-45.0); MEAN CORPUSCULAR VOLUME 88 FL (80-99); MONOCYTES % (AUTO) 7.2 % (1.0-10.0); NEUTROPHILS % (AUTO) 70.7 % (45.0-75.0); NITRITE,URINE NEGATIVE (NEGATIVE); PH,URINE 7 (4.5-8.0); PLATELET COUNT 398 K/UL (150-450); PROTEIN,URINE NEGATIVE (NEGATIVE); RED BLOOD COUNT 4.71 M/UL (4.20-5.40); RED CELL DISTRIBUTION WIDTH 13.9 % (11.6-14.8); UROBILINOGEN,URINE NORMAL MG/DL (0.0-1.0); WHITE BLOOD COUNT 10.7 K/UL (4.8-10.8)
[2019-05-29 05:56] LABS: ANION GAP 10 mmol/L (5-15); BLOOD UREA NITROGEN 11 mg/dL (7-18); CALCIUM 8.9 MG/DL (8.5-10.1); CARBON DIOXIDE 28 MMOL/L (21-32); CHLORIDE 106 MMOL/L (98-107); CREATININE 0.8 MG/DL (0.55-1.30); POTASSIUM 3.2 MMOL/L (3.5-5.1); SODIUM 144 MMOL/L (136-145)
[2019-05-29] MEDS ORDERED: HYDROCODON-ACE1 EA15 ORAL (06:19)
[2019-05-29 07:14] VITALS: BP 140/75
== END 2019-05-29 07:18 | disposition home or self-care (01) ==
LOC: EMR 04:44
DX: R07.9 Chest pain, unspecified (principal); M19.90 Unspecified osteoarthritis, unspecified site; I10 Essential (primary) hypertension; M31.4 Aortic arch syndrome [Takayasu]; Z88.6 Allergy status to analgesic agent; Z86.711 Personal history of pulmonary embolism; Z79.01 Long term (current) use of anticoagulants
CPT/HCPCS: 36415; 80048; 80307; 81003; 81025; 84484; 85025; 85610; 85730; 96374; 96375; 99284; J1170; J2405

== ENCOUNTER 2019-07-17 09:47 | Emergency (ER) | payer MEDICARE, OTHER ==
[~2019-07-17] VITALS: Ht 152.4 cm; Wt 64.0 kg
[~2019-07-17 09:47] MED LIST changes: +HYDROCODON-ACE1 EA15 ORAL
--- NOTE | 2019-07-17 10:20 | Emergency Room Report ---
History of Present Illness General Chief Complaint: Laceration Source: Patient Present Illness HPI Patient presents with complaints of injury to the left ring finger It occurred this morning with a scissor Patient tried to stop the bleeding with some pressure however as it continued to bleed she was concerned and came to the ER denies any other trauma to the wrist denies any fevers or chills she had discomfort to the local site of the laceration Allergies: Coded Allergies: MORPHINE (Verified Allergy, Severe, CONVULSIONS, 10/26/17) Patient History Past Medical History: see triage record Reviewed Nursing Documentation: PMH: Agreed; PSxH: Agreed Nursing Documentation-PMH Hx Hypertension: Yes Hx Pacemaker: No Hx Asthma: No Hx COPD: No Hx Diabetes: Yes Hx Cancer: No Hx Gastrointestinal Problems: Yes - gallstones Hx Dialysis: No Hx Neurological Problems: No Hx Cerebrovascular Accident: No Hx Seizures: No Review of Systems All Other Systems: negative except mentioned in HPI Physical Exam Vital Signs Date Time Temp Pulse Resp B/P (MAP) Pulse Ox O2 Delivery O2 Flow Rate FiO2 07/17/19 09:56 98.1 59 19 175/91 (119) 96 Room Air Sp02 EP Interpretation: reviewed, normal General Appearance: well appearing, no apparent distress Head: normocephalic, atraumatic Eyes: bilateral eye PERRL, bilateral eye EOMI ENT: hearing grossly normal Neck: supple Respiratory: no respiratory distress, no retraction Musculoskeletal: normal inspection Neurologic: alert, oriented x3 Skin: other - Small approximately quarter centimeter skin avulsion fingerpad palmar aspect left ring finger Lymphatic: no adenopathy Medical Decision Making Diagnostic Impression: Primary Impression: skin avulsion ER Course There is a skin avulsion of the finger pad approximately quarter centimeter in length area cleansed appropriately And pressure dressing is applied with improved bleeding control there is no area requiring suture and patient stable for close follow-up Last Vital Signs Date Time Temp Pulse Resp B/P (MAP) Pulse Ox O2 Delivery O2 Flow Rate FiO2 07/17/19 09:56 98.1 59 19 175/91 (119) 96 Room Air Status: improved Disposition: HOME, SELF-CARE Condition: Improved Referrals: [facility] Patient Instructions: Deep Skin Avulsion Additional Instructions: Patient is provided with the discharge instructions notified to follow up with primary doctor in the next 2-3 days otherwise return to the er with any worsening symptoms. Please note that this report is being documented using DRAGON technology. This can lead to erroneous entry secondary to incorrect interpretation by the dictating instrument. Jessica De La Fuente DO Jul 17, 2019 10:20
[2019-07-17 10:26] VITALS: BP 155/81
--- NOTE | 2019-07-17 10:29 | NUR ---
Patient was evaluated, treated and discharged with aftercare instructions by MD/PA
== END 2019-07-17 10:30 | disposition home or self-care (01) ==
LOC: EMR 10:15
DX: S61.205A Unspecified open wound of left ring finger without damage to nail, initial encounter (principal); Z88.6 Allergy status to analgesic agent; I10 Essential (primary) hypertension; E11.9 Type 2 diabetes mellitus without complications; W27.2XXA Contact with scissors, initial encounter; Y92.9 Unspecified place or not applicable
CPT/HCPCS: 99281

== ENCOUNTER 2019-08-08 16:03 | Inpatient (IN) | payer MEDICARE, OTHER ==
[~2019-08-08] VITALS: Ht 162.6 cm; Wt 63.2 kg
[2019-08-08] MEDS ORDERED: Omnipaue 350mg/ml 100ml vial INJ PRN (16:15)
[2019-08-08] MEDS ORDERED: HYDROmorphone 1mg/ml Carpuject IVP ONE (16:15)
[2019-08-08] MEDS ORDERED: DiphenhydrAMINE 50mg/ml Inj IVP ONE (16:15)
[2019-08-08 16:29] VITALS: BP 173/97
[2019-08-08 17:04] LABS: APPEARANCE,URINE CLEAR; BILIRUBIN, URINE NEGATIVE (NEGATIVE); COLOR,URINE PALE YELLOW; GLUCOSE, URINE (UA) NEGATIVE (NEGATIVE); KETONES,URINE NEGATIVE (NEGATIVE); LEUKOCYTE ESTERASE ,URINE NEGATIVE (NEGATIVE); NITRITE,URINE NEGATIVE (NEGATIVE); PH,URINE 8 (4.5-8.0); PROTEIN,URINE 2+ (NEGATIVE); UROBILINOGEN,URINE NORMAL MG/DL (0.0-1.0)
--- NOTE | 2019-08-08 17:07 | Diagnostic Imaging Report ---
EXAM: XR Chest, 1 View CLINICAL HISTORY: CP TECHNIQUE: Frontal view of the chest. COMPARISON: No relevant prior studies available. FINDINGS: Lungs: Mild accentuation of bronchovascular markings. No edema. No consolidation. Pleural space: Unremarkable. No pneumothorax. Heart: Cardiomegaly and surgical changes. Mediastinum: Unremarkable. Bones/joints: Sternotomy. IMPRESSION: Mild accentuation of bronchovascular markings.
[2019-08-08 17:08] LABS: ANION GAP 6 mmol/L (5-15); BLOOD UREA NITROGEN 12 mg/dL (7-18); CALCIUM 9.3 MG/DL (8.5-10.1); CARBON DIOXIDE 30 MMOL/L (21-32); CHLORIDE 106 MMOL/L (98-107); CREATININE 0.9 MG/DL (0.55-1.30); SODIUM 142 MMOL/L (136-145)
[2019-08-08 17:10] LABS: INR 2.1 (0.9-1.1)
[2019-08-08 17:14] LABS: BASOPHILS % (AUTO) 1.3 % (0.0-2.0); EOSINOPHILS % (AUTO) 1.9 % (0.0-3.0); HEMATOCRIT 44.4 % (37.0-47.0); HEMOGLOBIN 14.3 G/DL (12.0-16.0); LYMPHOCYTES % (AUTO) 31.9 % (20.0-45.0); MEAN CORPUSCULAR VOLUME 87 FL (80-99); MONOCYTES % (AUTO) 7.1 % (1.0-10.0); NEUTROPHILS % (AUTO) 57.8 % (45.0-75.0); PLATELET COUNT 302 K/UL (150-450); WHITE BLOOD COUNT 9.2 K/UL (4.8-10.8)
[2019-08-08 17:18] LABS: ALANINE AMINOTRANSFERASE 26 U/L (12-78); ALBUMIN/GLOBULIN RATIO 0.9 (1.0-2.7); ALKALINE PHOSPHATASE 73 U/L (46-116); ASPARTATE AMINO TRANSFERASE 18 U/L (15-37); BILIRUBIN,TOTAL 0.5 MG/DL (0.2-1.0); CREATINE KINASE 95 U/L (26-308)
[2019-08-08 18:25] VITALS: BP 176/87
--- NOTE | 2019-08-08 18:25 | Emergency Room Report ---
History of Present Illness General Chief Complaint: Abdominal Pain Source: Patient Present Illness HPI Patient presents with chest pain. Also complaining about abdominal pain. The patient is on Coumadin for pulmonary embolus. The chest pain is mid chest radiating towards her back on the right-hand side. She feels short of breath with this also. She states the pain in her back is 9/10 and aching and somewhat sharp. She denies any fevers or chills or productive cough. The patient states she has a history of inflammation of her aorta. She is taking prednisone at this time. The abdominal pain is epigastric burning. Had sternotomy to "clean out the lungs with a blood clot" The patient was admitted to the hospital November 2018. 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 Generalized weakness Allergies: Coded Allergies: MORPHINE (Verified Allergy, Severe, CONVULSIONS, 10/26/17) Patient History Past Medical History: see triage record, old chart reviewed Past Surgical History: other - Sternotomy - for PE Social History: Denies: smoking Social History Narrative Disabled Now: No Reviewed Nursing Documentation: PMH: Agreed; PSxH: Agreed Nursing Documentation-PMH Hx Hypertension: Yes Hx Pacemaker: No Hx Asthma: No Hx COPD: No Hx Diabetes: Yes Hx Cancer: No Hx Gastrointestinal Problems: Yes - gallstones Hx Dialysis: No Hx Cerebrovascular Accident: No Hx Seizures: No Physical Exam Vital Signs Date Time Temp Pulse Resp B/P (MAP) Pulse Ox O2 Delivery O2 Flow Rate FiO2 08/08/19 16:00 98.1 82 18 180/100 (126) 98 Room Air 08/08/19 16:29 96 Sp02 EP Interpretation: reviewed, normal General Appearance: alert, GCS 15, non-toxic, mild distress Head: other - bhakta face Eyes: bilateral eye normal inspection, bilateral eye PERRL, bilateral eye EOMI ENT: moist mucus membranes Neck: full range of motion, supple Respiratory: chest non-tender, lungs clear, normal breath sounds, other - Sternotomy Cardiovascular #1: regular rate, rhythm, no edema, no murmur Cardiovascular #2: 2+ radial (R) Gastrointestinal: normal inspection, normal bowel sounds, no mass, non- distended, no guarding, no rebound, tenderness Genitourinary: no CVA tenderness Musculoskeletal: back normal, normal range of motion, no calf tenderness, gait/ station normal Neurologic: alert, oriented x3, speech normal Psychiatric: depressed affect Skin: warm/dry, pallor - Plethoric Medical Decision Making Diagnostic Impression: Primary Impression: Chest pain Qualified Codes: R07.9 - Chest pain, unspecified Additional Impressions: Cholelithiasis Qualified Codes: K80.80 - Other cholelithiasis without obstruction Anticoagulation adequate History of pulmonary embolus (PE) Celiac artery stenosis ER Course Patient presents with chest pain shortness of breath abdominal pain with history of PE on anticoagulation. Differential includes pulmonary embolus, peptic ulcer disease, pancreatitis, cholelithiasis, pneumonia, acute myocardial infarction amongst others. Patient will be evaluated with EKG, chest x-ray and labs. Patient will be treated with analgesia. Patient placed on a chief librarian extension department. EKG without injury. CXR Sternotomy sl increased menon. White count normal. Hemoglobin slightly elevated. CMP with minimally elevated glucose. INR 2.1 Pain improved but still 5/10. Repeat analgesia No PE on CTA but aorta with segmental stenosis including high grade at celiac artery. Dr. Valle requests Dr. Haile. Due to high risk factors and anticoagulation patient admitted to telemetry. Consideration of bowel angina. Laboratory Tests Test 08/08/19 16:20 White Blood Count 9.2 K/UL (4.8-10.8) Red Blood Count 5.10 M/UL (4.20-5.40) Hemoglobin 14.3 G/DL (12.0-16.0) Hematocrit 44.4 % (37.0-47.0) Mean Corpuscular Volume 87 FL (80-99) Mean Corpuscular Hemoglobin 28.0 PG (27.0-31.0) Mean Corpuscular Hemoglobin Concent 32.2 G/DL (32.0-36.0) Red Cell Distribution Width 15.0 % (11.6-14.8) H Platelet Count 302 K/UL (150-450) Mean Platelet Volume 7.2 FL (6.5-10.1) Neutrophils (%) (Auto) 57.8 % (45.0-75.0) Lymphocytes (%) (Auto) 31.9 % (20.0-45.0) Monocytes (%) (Auto) 7.1 % (1.0-10.0) Eosinophils (%) (Auto) 1.9 % (0.0-3.0) Basophils (%) (Auto) 1.3 % (0.0-2.0) Prothrombin Time 21.1 SEC (9.30-11.50) H Prothrombin Time INR 2.1 (0.9-1.1) H Urine Color Pale yellow Urine Appearance Clear Urine pH 8 (4.5-8.0) Urine Specific [place] 1.015 (1.005-1.035) Urine Protein 2+ (NEGATIVE) H Urine Glucose (UA) Negative (NEGATIVE) Urine Ketones Negative (NEGATIVE) Urine Blood Negative (NEGATIVE) Urine Nitrite Negative (NEGATIVE) Urine Bilirubin Negative (NEGATIVE) Urine Urobilinogen Normal MG/DL (0.0-1.0) Urine Leukocyte Esterase Negative (NEGATIVE) Urine RBC 0-2 /HPF (0 - 2) Urine WBC 0-2 /HPF (0 - 2) Urine Squamous Epithelial Cells Few /LPF (NONE/OCC) Urine Amorphous Sediment Moderate /LPF (NONE) H Urine Bacteria Few /HPF (NONE) Sodium Level 142 MMOL/L (136-145) Potassium Level 3.0 MMOL/L (3.5-5.1) L Chloride Level 106 MMOL/L (98-107) Carbon Dioxide Level 30 MMOL/L (21-32) Anion Gap 6 mmol/L (5-15) Blood Urea Nitrogen 12 mg/dL (7-18) Creatinine 0.9 MG/DL (0.55-1.30) Estimate Glomerular Filtration Rate > 60 mL/min (>60) Glucose Level 123 MG/DL (74-106) H Calcium Level 9.3 MG/DL (8.5-10.1) Total Bilirubin 0.5 MG/DL (0.2-1.0) Aspartate Amino Transferase (AST) 18 U/L (15-37) Alanine Aminotransferase (ALT) 26 U/L (12-78) Alkaline Phosphatase 73 U/L (46-116) Total Creatine Kinase 95 U/L (26-308) Troponin I 0.000 ng/mL (0.000-0.056) Pro-B-Type Natriuretic Peptide 272 pg/mL (0-125) H Total Protein 8.4 G/DL (6.4-8.2) H Albumin 4.0 G/DL (3.4-5.0) Globulin 4.4 g/dL Albumin/Globulin Ratio 0.9 (1.0-2.7) L Urine Opiates Screen Negative (NEGATIVE) Urine Barbiturates Screen Negative (NEGATIVE) Phencyclidine (PCP) Screen Negative (NEGATIVE) Urine Amphetamines Screen Negative (NEGATIVE) Urine Benzodiazepines Screen Negative (NEGATIVE) Urine Cocaine Screen Negative (NEGATIVE) Urine Marijuana (THC) Screen Negative (NEGATIVE) EKG Diagnostic Results Rate: normal Rhythm: NSR ST Segments: no acute changes - LAE Rhythm Strip Diag. Results EP Interpretation: yes Rhythm: NSR, no PVC's, no ectopy Chest X-Ray Diagnostic Results Chest X-Ray Diagnostic Results : Chest X-Ray Ordered: Yes # of Views/Limited/Complete: 1 View Indication: Chest Pain EP Interpretation: Yes Interpretation: no consolidation, no effusion, no pneumothorax, other - Sternotomy Impression: No acute disease Electronically Signed by: Electronically signed by Eliecer Salguero MD CT/MRI/US Diagnostic Results CT/MRI/US Diagnostic Results : Imaging Test Ordered: CTA chest Impression 1. No pulmonary embolus. 2. Segmental regions of luminal stenosis and mural thickening involving the descending thoracic and abdominal aorta. 3. Cholelithiasis. Last Vital Signs Date Time Temp Pulse Resp B/P (MAP) Pulse Ox O2 Delivery O2 Flow Rate FiO2 08/09/19 00:00 97.9 53 18 156/93 (114) 96 08/09/19 00:00 Room Air 08/08/19 19:35 96 Status: improved Disposition: ADMITTED INPATIENT Condition: Serious Referrals: Marcelo Valle MD (PCP) Eliecer Salguero MD Aug 08, 2019 18:25
--- NOTE | 2019-08-08 18:49 | Diagnostic Imaging Report ---
EXAM: CT Angiography Chest With Intravenous Contrast CLINICAL HISTORY: PE TECHNIQUE: Axial computed tomographic angiography images of the chest with intravenous contrast using pulmonary embolism protocol. CTDI is 87.5 mGy and DLP is 761.9 mGy-cm. One or more of the following dose reduction techniques were used: automated exposure control, adjustment of the mA and/or kV according to patient size, use of iterative reconstruction technique. MIP reconstructed images were created and reviewed. COMPARISON: No relevant prior studies available. FINDINGS: Pulmonary arteries: No pulmonary embolus. Aorta: Segmental regions of luminal stenosis and mural thickening involving the descending thoracic and abdominal aorta. Celiac trunk: High-grade stenosis at the origin of the celiac artery. Lungs: Mild pulmonary emphysema/fibrosis. Scarring and nodularity in the right upper lung field. Mild scarring at the right lung base and lingula. Pleural space: No effusion. No pneumothorax. Heart: Cardiomegaly and surgical changes. Bones/joints: Sternotomy. Soft tissues: Unremarkable. Lymph nodes: No enlarged lymph nodes. Liver: Mild fatty liver. Gallbladder and bile ducts: Cholelithiasis. IMPRESSION: 1. No pulmonary embolus. 2. Segmental regions of luminal stenosis and mural thickening involving the descending thoracic and abdominal aorta. 3. Cholelithiasis.
[2019-08-08] MEDS ORDERED: Hydromorphone 0.5mg/0.5ml inj IVP ONE (19:00)
[2019-08-08 19:01] VITALS: BP 164/72
[2019-08-08 19:05] VITALS: BP 186/90
[2019-08-08 19:45] VITALS: BP 193/121
[2019-08-08] MEDS ORDERED: Miralax 17gm pkt ORAL PRN (20:30)
[2019-08-08] MEDS ORDERED: Nitroglycerin Subl 0.4mg tab SL PRN (20:30)
[2019-08-08] MEDS ORDERED: Warfarin Sodium 1mg ORAL SCH (21:00)
[2019-08-08] MEDS: NovoLOG Insulin Flexpen SUBQ SCH (21:00)
[2019-08-08] MEDS ORDERED: Heparin 5000 units/ml inj SUBQ SCH (21:00)
[2019-08-09] VITALS: BP 156/93
[2019-08-09 04:00] VITALS: BP 140/90
[2019-08-09 04:42] LABS: BASOPHILS % (AUTO) 0.9 % (0.0-2.0); EOSINOPHILS % (AUTO) 2.1 % (0.0-3.0); HEMATOCRIT 41.3 % (37.0-47.0); HEMOGLOBIN 13.3 G/DL (12.0-16.0); LYMPHOCYTES % (AUTO) 30.2 % (20.0-45.0); MEAN CORPUSCULAR VOLUME 87 FL (80-99); MONOCYTES % (AUTO) 7.1 % (1.0-10.0); NEUTROPHILS % (AUTO) 59.8 % (45.0-75.0); PLATELET COUNT 289 K/UL (150-450); RED BLOOD COUNT 4.74 M/UL (4.20-5.40); RED CELL DISTRIBUTION WIDTH 14.9 % (11.6-14.8); WHITE BLOOD COUNT 9.2 K/UL (4.8-10.8)
[2019-08-09 04:52] LABS: INR 2.1 (0.9-1.1)
[2019-08-09 05:07] LABS: ALANINE AMINOTRANSFERASE 23 U/L (12-78); ALBUMIN 3.3 G/DL (3.4-5.0); ALBUMIN/GLOBULIN RATIO 0.8 (1.0-2.7); ALKALINE PHOSPHATASE 60 U/L (46-116); AMYLASE 84 U/L (25-115); ANION GAP 6 mmol/L (5-15); ASPARTATE AMINO TRANSFERASE 18 U/L (15-37); BILIRUBIN,TOTAL 0.8 MG/DL (0.2-1.0); BLOOD UREA NITROGEN 10 mg/dL (7-18); CALCIUM 8.7 MG/DL (8.5-10.1); CARBON DIOXIDE 30 MMOL/L (21-32); CHLORIDE 109 MMOL/L (98-107); CREATININE 0.7 MG/DL (0.55-1.30); POTASSIUM 3.7 MMOL/L (3.5-5.1); SODIUM 145 MMOL/L (136-145)
[2019-08-09] MEDS: NovoLOG Insulin Flexpen SUBQ SCH ×4 (06:30→20:26)
[2019-08-09 08:00] VITALS: BP 163/94
[2019-08-09] MEDS: Ketorolac 30mg Inj IV PRN ×2 (08:02→19:48)
[2019-08-09] MEDS ORDERED: Warfarin Sodium 7.5mg ORAL SCH (09:00)
[2019-08-09 12:00] VITALS: BP 139/85
--- NOTE | 2019-08-09 12:00 | Consultation ---
DATE OF CONSULTATION: 08/09/2019 CONSULTING PHYSICIAN: Jose David Munoz M.D. CHIEF COMPLAINT: Referral for abdominal pain and chest pain. HISTORY OF PRESENT ILLNESS: This is a very pleasant 44-year-old female with past medical history of bilateral DVTs, pulmonary embolism in the past, admitted to the hospital with complaint of chest pain. Also complained of some left-sided abdominal pain. So, GI consult requested for evaluation for that. The patient denies any nausea or vomiting. Denies any dysphagia. Denies any odynophagia. Denies any melena. Denies hematochezia. Review of the chart showed the patient had an endoscopy in last admission, which showed evidence of H. pylori negative gastritis. The patient denies any melena. Abdominal pain is mostly on the left side, left upper, not related to meals, nonspecific. The patient had a CT of the chest with CT angio, rule out PE, which was negative. PAST MEDICAL HISTORY: 1. DVTs and pulmonary embolism. 2. Gallstones. 3. H. pylori gastritis. 4. Diabetes. 5. Hypertension. 6. Takayasu arteritis. ALLERGIES: To morphine. MEDICATIONS: Please see medication reconciliation list. PAST SURGICAL HISTORY: History of thoracic surgery for removal of the clots from her lungs in 2008, no other surgeries. FAMILY HISTORY: Noncontributory. SOCIAL HISTORY: The patient denies any tobacco, alcohol, or IV drug abuse. REVIEW OF SYSTEMS: A 10-point review of systems was performed and pertinent positives in HPI. PHYSICAL EXAMINATION: GENERAL: This is a well-developed female, in no acute distress. VITAL SIGNS: Temperature is 97.9, pulse is 64, respirations 20, and blood pressure is 140/90. HEENT: Normocephalic and atraumatic. Sclerae anicteric. NECK: Supple. No evidence of obvious lymphadenopathy. CARDIOVASCULAR: Regular rate and rhythm. Plus S1 and S2. No obvious murmur. LUNGS: Clear to auscultation bilaterally. ABDOMEN: Positive bowel sounds. Soft and nontender. No rebound. No guarding. No peritoneal sign. EXTREMITIES: No cyanosis. No clubbing. No edema. LABORATORY DATA: White count is 9.2, hemoglobin 13, hematocrit 41, platelet count is 289. Chem 7 grossly normal. ASSESSMENT AND PLAN: This is a 44-year-old female with nonspecific left-sided abdominal pain without any significant CT of the chest or laboratory findings. The patient had an endoscopy in last admission. Plan to be conservative at this time. Given there is no anemia, no weight loss, we are going to hold off from doing colonoscopy. We will send the stool for OB. Monitor for laboratories, pain control. Follow with Cardiology regarding her cardiac symptoms. Jose David Munoz M.D. DR: JASMIN JOB#: [id number] CC:
--- NOTE | 2019-08-09 12:45 | History & Physical ---
History and Physical History & Physicial Geovanni Haile MD Aug 09, 2019 12:44
--- NOTE | 2019-08-09 15:23 | Consultation ---
History of Present Illness General Chief Complaint: Abdominal Pain Present Illness Allergies: Coded Allergies: MORPHINE (Verified Allergy, Severe, CONVULSIONS, 10/26/17) Medication History Scheduled Atenolol* (Tenormin*), 50 MG ORAL DAILY, (Reported) Folic Acid* (Folic Acid*), 1 MG ORAL DAILY, (Reported) Metformin Hcl* (Metformin Hcl*), 500 MG ORAL DAILY, (Reported) Pantoprazole* (Protonix*), 40 MG ORAL DAILY, (Reported) Prednisone* (Prednisone*), 10 MG ORAL DAILY, (Reported) Warfarin Sod (Coumadin*), 6 MG ORAL DAILY, (Reported) Scheduled PRN Hydrocodone/Acetaminophen 5-325* (Hydrocodone/Acetaminophen 5-325*), 1 TAB ORAL Q6H PRN for For Pain Patient History Healthcare decision maker Resuscitation status Full Code Advanced Directive on File Physical Exam Last 24 Hour Vital Signs Date Time Temp Pulse Resp B/P (MAP) Pulse Ox O2 Delivery O2 Flow Rate FiO2 08/09/19 12:00 99.9 63 20 139/85 (103) 100 08/09/19 12:00 65 08/09/19 12:00 Room Air 08/09/19 09:00 54 140/90 08/09/19 08:00 97.9 60 21 163/94 (117) 96 08/09/19 08:00 58 08/09/19 07:33 Room Air 08/09/19 04:00 97.9 54 18 140/90 (107) 94 08/09/19 04:00 Room Air 08/09/19 03:49 57 08/09/19 00:00 97.9 53 18 156/93 (114) 96 08/09/19 00:00 Room Air 08/08/19 23:42 55 08/08/19 20:06 67 08/08/19 19:45 Room Air 08/08/19 19:45 97.3 98 24 193/121 (145) 97 08/08/19 19:35 98.3 08/08/19 19:35 98.3 99 16 186/90 98 Room Air 96 08/08/19 19:19 99 186/90 08/08/19 19:05 98.3 99 16 186/90 98 Room Air 96 08/08/19 19:01 164/72 08/08/19 18:25 98.3 81 15 176/87 96 Room Air 08/08/19 17:01 98.0 08/08/19 16:29 98.7 67 21 173/97 96 Room Air 08/08/19 16:29 67 21 Room Air 96 08/08/19 16:00 98.1 82 18 180/100 (126) 98 Room Air Intake and Output 08/08/19 08/09/19 19:00 07:00 Intake Total 525 ml Balance 525 ml Intake IV Total 525 ml # Voids 1 Laboratory Tests Test 08/08/19 16:20 08/09/19 03:45 08/09/19 13:50 White Blood Count 9.2 K/UL (4.8-10.8) 9.2 K/UL (4.8-10.8) Red Blood Count 5.10 M/UL (4.20-5.40) 4.74 M/UL (4.20-5.40) Hemoglobin 14.3 G/DL (12.0-16.0) 13.3 G/DL (12.0-16.0) Hematocrit 44.4 % (37.0-47.0) 41.3 % (37.0-47.0) Mean Corpuscular Volume 87 FL (80-99) 87 FL (80-99) Mean Corpuscular Hemoglobin 28.0 PG (27.0-31.0) 28.0 PG (27.0-31.0) Mean Corpuscular Hemoglobin Concent 32.2 G/DL (32.0-36.0) 32.1 G/DL (32.0-36.0) Red Cell Distribution Width 15.0 % (11.6-14.8) H 14.9 % (11.6-14.8) H Platelet Count 302 K/UL (150-450) 289 K/UL (150-450) Mean Platelet Volume 7.2 FL (6.5-10.1) 7.5 FL (6.5-10.1) Neutrophils (%) (Auto) 57.8 % (45.0-75.0) 59.8 % (45.0-75.0) Lymphocytes (%) (Auto) 31.9 % (20.0-45.0) 30.2 % (20.0-45.0) Monocytes (%) (Auto) 7.1 % (1.0-10.0) 7.1 % (1.0-10.0) Eosinophils (%) (Auto) 1.9 % (0.0-3.0) 2.1 % (0.0-3.0) Basophils (%) (Auto) 1.3 % (0.0-2.0) 0.9 % (0.0-2.0) Prothrombin Time 21.1 SEC (9.30-11.50) H 21.5 SEC (9.30-11.50) H Prothromb Time International Ratio 2.1 (0.9-1.1) H 2.1 (0.9-1.1) H Urine Color Pale yellow Urine Appearance Clear Urine pH 8 (4.5-8.0) Urine Specific [place] 1.015 (1.005-1.035) Urine Protein 2+ (NEGATIVE) H Urine Glucose (UA) Negative (NEGATIVE) Urine Ketones Negative (NEGATIVE) Urine Blood Negative (NEGATIVE) Urine Nitrite Negative (NEGATIVE) Urine Bilirubin Negative (NEGATIVE) Urine Urobilinogen Normal MG/DL (0.0-1.0) Urine Leukocyte Esterase Negative (NEGATIVE) Urine RBC 0-2 /HPF (0 - 2) Urine WBC 0-2 /HPF (0 - 2) Urine Squamous Epithelial Cells Few /LPF (NONE/OCC) Urine Amorphous Sediment Moderate /LPF (NONE) H Urine Bacteria Few /HPF (NONE) Sodium Level 142 MMOL/L (136-145) 145 MMOL/L (136-145) Potassium Level 3.0 MMOL/L (3.5-5.1) L 3.7 MMOL/L (3.5-5.1) Chloride Level 106 MMOL/L (98-107) 109 MMOL/L (98-107) H Carbon Dioxide Level 30 MMOL/L (21-32) 30 MMOL/L (21-32) Anion Gap 6 mmol/L (5-15) 6 mmol/L (5-15) Blood Urea Nitrogen 12 mg/dL (7-18) 10 mg/dL (7-18) Creatinine 0.9 MG/DL (0.55-1.30) 0.7 MG/DL (0.55-1.30) Estimat Glomerular Filtration Rate > 60 mL/min (>60) > 60 mL/min (>60) Glucose Level 123 MG/DL (74-106) H 103 MG/DL (74-106) Calcium Level 9.3 MG/DL (8.5-10.1) 8.7 MG/DL (8.5-10.1) Total Bilirubin 0.5 MG/DL (0.2-1.0) 0.8 MG/DL (0.2-1.0) Aspartate Amino Transf (AST/SGOT) 18 U/L (15-37) 18 U/L (15-37) Alanine Aminotransferase (ALT/SGPT) 26 U/L (12-78) 23 U/L (12-78) Alkaline Phosphatase 73 U/L (46-116) 60 U/L (46-116) Total Creatine Kinase 95 U/L (26-308) Troponin I 0.000 ng/mL (0.000-0.056) Pro-B-Type Natriuretic Peptide 272 pg/mL (0-125) H Total Protein 8.4 G/DL (6.4-8.2) H 7.3 G/DL (6.4-8.2) Albumin 4.0 G/DL (3.4-5.0) 3.3 G/DL (3.4-5.0) L Globulin 4.4 g/dL 4.0 g/dL Albumin/Globulin Ratio 0.9 (1.0-2.7) L 0.8 (1.0-2.7) L Urine Opiates Screen Negative (NEGATIVE) Urine Barbiturates Screen Negative (NEGATIVE) Phencyclidine (PCP) Screen Negative (NEGATIVE) Urine Amphetamines Screen Negative (NEGATIVE) Urine Benzodiazepines Screen Negative (NEGATIVE) Urine Cocaine Screen Negative (NEGATIVE) Urine Marijuana (THC) Screen Negative (NEGATIVE) Activated Partial Thromboplast Time 48 SEC (23-33) H Hemoglobin A1c 6.2 % (4.3-6.0) H Amylase Level 84 U/L (25-115) Lipase 431 U/L (73-393) H Thyroid Stimulating Hormone (TSH) 1.018 uiU/mL (0.358-3.740) Stool Occult Blood Positive (NEGATIVE) Microbiology Date/Time Source Procedure Growth Status 08/08/19 20:45 Rectum Received Height (Feet): 5 Height (Inches): 4.00 Weight (Pounds): 160 Medications Current Medications Medications (Trade) Dose Ordered Sig/Sheila Route PRN Reason Start Time Stop Time Status Last Admin Dose Admin Acetaminophen (Tylenol) 650 mg Q4H PRN ORAL fever 08/08/19 20:30 09/07/19 20:29 Atenolol (Tenormin) 50 mg DAILY ORAL 08/09/19 09:00 09/08/19 08:59 Dextrose (Dextrose 50%) 25 ml Q30M PRN IV Hypoglycemia 08/08/19 20:30 09/07/19 20:29 Dextrose (Dextrose 50%) 50 ml Q30M PRN IV Hypoglycemia 08/08/19 20:30 09/07/19 20:29 Diphenhydramine HCl (Benadryl) 25 mg Q6H PRN ORAL Itching/Pruritis 08/08/19 20:30 09/07/19 20:29 Insulin Aspart (NovoLOG) BEFORE MEALS AND HS SUBQ 08/08/19 21:00 09/07/19 20:59 Iohexol (Omnipaque) 100 mg NOW PRN INJ Radiology Procedure 08/08/19 16:15 08/10/19 16:05 Ketorolac Tromethamine (Toradol 30mg) 30 mg Q6H PRN IV moderate pian 4-6 08/08/19 20:30 08/13/19 20:29 08/09/19 08:02 Nitroglycerin (Ntg) 0.4 mg Q5M X 3 DOSES PRN SL Prn Chest Pain 08/08/19 20:30 09/07/19 20:29 Ondansetron HCl (Zofran) 4 mg Q6H PRN IVP Nausea & Vomiting 08/08/19 20:30 09/07/19 20:29 08/09/19 07:59 Polyethylene Glycol (Miralax) 17 gm HSPRN PRN ORAL Constipation 08/08/19 20:30 09/07/19 20:29 Sodium Chloride 1,000 ml @ 50 mls/hr Q20H IV 08/08/19 20:29 09/07/19 20:28 08/08/19 20:29 Temazepam (Restoril) 15 mg HSPRN PRN ORAL Insomnia 08/08/19 20:30 08/15/19 20:29 Warfarin Sodium (Coumadin per pharmacy) 1 ea DAILY PRN MISC rx protocol 08/08/19 20:45 09/07/19 20:44 Warfarin Sodium (Coumadin) 6 mg ONCE ORAL 08/09/19 17:00 08/09/19 19:00 Assessment/Plan Problem List: (1) Chest pain ICD Codes: R07.9 - Chest pain, unspecified SNOMED: 54223186 Qualifiers: Qualified Codes: R07.9 - Chest pain, unspecified (2) History of pulmonary embolus (PE) ICD Codes: Z86.711 - Personal history of pulmonary embolism SNOMED: 432835410 (3) Diabetes mellitus ICD Codes: E11.9 - Type 2 diabetes mellitus without complications SNOMED: 50932394 (4) PUD (peptic ulcer disease) ICD Codes: K27.9 - Peptic ulcer, site unspecified, unspecified as acute or chronic, without hemorrhage or perforation SNOMED: 77335001 Bhargavi Alva MD Aug 09, 2019 15:23
--- NOTE | 2019-08-09 15:45 | History and Physical Report ---
DATE OF ADMISSION: 08/08/2019 CHIEF COMPLAINT: Left-sided chest pain. HISTORY OF PRESENT ILLNESS: This is a 44-year-old female with past medical history significant for UTI, history of abdominal pain with gastritis and cholelithiasis, acute bronchitis in the past, hypertension, prior history to DVT and PE on Coumadin therapy, pulmonary hypertension, history of essential hypertension, Takayasu arteritis, status post EGD on 12/02/2018, who presented to the emergency room complaining about chest pain as well as abdominal pain. The patient has been treated with Coumadin compliance with Coumadin for treatment of the PE. She has complained about chest pain mid sternum area radiated to the back as well as right side, right hand. She feels like shortness of breath with this finding and the pain is 9/10 in intensity. No nausea or vomiting. No fever or chills. No hemoptysis or hematochezia. Shortly after initial evaluation in the emergency, the patient was admitted to the hospital with chest pain, possible acute coronary syndrome as well as abdominal pain. PAST MEDICAL HISTORY/PAST SURGICAL HISTORY: As above, history of Takayasu syndrome, DVT and PE on anticoagulation with Coumadin, pulmonary hypertension, essential hypertension, history of recent EGD on 12/02/2018, history of generalized weakness, UTI, chronic abdominal pain due to the gastritis and cholelithiasis. MEDICATIONS AT HOME: Please refer to medication reconciliation. ALLERGIES: Allergic to morphine. SOCIAL HISTORY: Denies any smoking, alcohol, or drugs at this time. FAMILY HISTORY: Noncontributory. REVIEW OF SYSTEMS: Mostly as above. Denies any dysuria, frequency, or hematuria. Complained of chest pain. Denies any hemoptysis or hematochezia. Denies any suicidal or homicidal ideation. Denies any loss of consciousness. Denies any fall or head trauma. PHYSICAL EXAMINATION: VITAL SIGNS: On admission from the ER, temperature 98.1, pulse of 82, respirations 18, and blood pressure 180/100, repeat one is 140/90. GENERAL: The patient is awake and responsive, in no acute distress. HEAD AND NECK: Pupils are reactive to light. Extraocular movements intact. Neck was supple. No JVD. LUNGS: Clear. No wheezes or rales. HEART: S1, S2. Regular rhythm. Distant heart sounds. No murmurs or gallops. ABDOMEN: Soft, nontender, nontender. Positive bowel sounds. EXTREMITIES: No cyanosis, clubbing, or edema. NEUROLOGIC: Cranial nerves II through XII grossly intact. Motor is 5/5 in all extremities. RECTAL: Refused and deferred. GENITOURINARY: Refused and deferred. PSYCHIATRIC: Mood and affect is intact. LABORATORY DATA: On admission from the ER, WBC of 9.2, hemoglobin of 14, hematocrit 44, platelets is 302. Sodium is 142, potassium 3.0, chloride 106, bicarbonate 30, BUN 12, creatinine 0.9, glucose is 123. Liver function essentially negative. Troponin 0.00. ProBNP of 272. Albumin is 4.0. TSH is 1.018. Urine drug screen is negative. UA is +2 protein plus moderate amorphic sedimentation. PT is 21, INR is 2.1. CT of the chest and thorax, no pulmonary embolism, segmental luminal stenosis with thickening involving the descending thorax and abdominal aorta, cholelithiasis. Chest x-ray, mild accentuated bronchovascular marking. EKG is normal sinus rhythm, ventricular rate of 62, left atrial enlargement. Q wave was noted in leads III and aVF with inverted T-wave in lead V2, V3, V4. No ST elevation was noted. ASSESSMENT: 1. Chest pain, possible acute coronary syndrome. 2. History of DVT and PE, on Coumadin anticoagulation. 3. Gallstone. 4. Diabetes type 2. 5. Hypertension. 6. Takayasu arteritis. PLAN: 1. Admit the patient to monitored unit. 2. We will follow up with Dr. Alva from Pulmonary [facility] Care. 3. We will monitor laboratory. 4. Followup serial cardiac enzymes. 5. Continue on warfarin therapy. 6. Code status is Full Code. Geovanni Haile M.D. DR: ESPERANZA JOB#: [id number] CC:
[2019-08-09 16:00] VITALS: BP 161/85
[2019-08-09] MEDS ORDERED: Warfarin Sodium 3mg ORAL SCH (17:00)
[2019-08-09 20:00] VITALS: BP 162/91
[2019-08-10] VITALS: BP 155/88
[2019-08-10 04:00] VITALS: BP 154/101
[2019-08-10] MEDS: NovoLOG Insulin Flexpen SUBQ SCH ×4 (06:30→21:45)
[2019-08-10 06:35] LABS: EOSINOPHILS % (AUTO) 2.7 % (0.0-3.0); HEMATOCRIT 40.5 % (37.0-47.0); HEMOGLOBIN 13.1 G/DL (12.0-16.0); LYMPHOCYTES % (AUTO) 28.3 % (20.0-45.0); MEAN CORPUSCULAR VOLUME 88 FL (80-99); MONOCYTES % (AUTO) 8.5 % (1.0-10.0); NEUTROPHILS % (AUTO) 59.5 % (45.0-75.0); PLATELET COUNT 270 K/UL (150-450); RED BLOOD COUNT 4.61 M/UL (4.20-5.40); WHITE BLOOD COUNT 7.8 K/UL (4.8-10.8)
[2019-08-10 06:47] LABS: INR 1.5 (0.9-1.1)
[2019-08-10 07:14] LABS: ALANINE AMINOTRANSFERASE 23 U/L (12-78); ALBUMIN/GLOBULIN RATIO 0.8 (1.0-2.7); ALKALINE PHOSPHATASE 66 U/L (46-116); AMYLASE 52 U/L (25-115); ANION GAP 3 mmol/L (5-15); ASPARTATE AMINO TRANSFERASE 16 U/L (15-37); BILIRUBIN,TOTAL 0.7 MG/DL (0.2-1.0); BLOOD UREA NITROGEN 14 mg/dL (7-18); CARBON DIOXIDE 27 MMOL/L (21-32); CHLORIDE 111 MMOL/L (98-107); CREATININE 0.9 MG/DL (0.55-1.30); POTASSIUM 3.4 MMOL/L (3.5-5.1); SODIUM 141 MMOL/L (136-145)
[2019-08-10 08:00] VITALS: BP 163/100
--- NOTE | 2019-08-10 09:53 | General Progress Note ---
Assessment/Plan Problem List: (1) Chest pain ICD Codes: R07.9 - Chest pain, unspecified SNOMED: 92812678 Qualifiers: Qualified Codes: R07.9 - Chest pain, unspecified (2) History of pulmonary embolism ICD Codes: Z86.711 - Personal history of pulmonary embolism SNOMED: 918118624 (3) Abdominal pain ICD Codes: R10.9 - Unspecified abdominal pain SNOMED: 48246663 (4) Diabetes mellitus ICD Codes: E11.9 - Type 2 diabetes mellitus without complications SNOMED: 20370479 (5) Generalized weakness ICD Codes: R53.1 - Weakness SNOMED: 87010604 (6) Cholelithiasis ICD Codes: K80.20 - Calculus of gallbladder without cholecystitis without obstruction SNOMED: 228693501 Qualifiers: Qualified Codes: K80.80 - Other cholelithiasis without obstruction Assessment/Plan: 1. DVTs and h/opulmonary embolism. 2. Gallstones. 3. H. pylori gastritis. 4. Diabetes. 5. Hypertension. 6. Takayasu arteritis. has had EGD in the last admission no anemia abd pain is better fu cardiology Subjective ROS Limited/Unobtainable: Yes Allergies: Coded Allergies: MORPHINE (Verified Allergy, Severe, CONVULSIONS, 10/26/17) Objective Last 24 Hour Vital Signs Date Time Temp Pulse Resp B/P (MAP) Pulse Ox O2 Delivery O2 Flow Rate FiO2 08/10/19 04:00 97.5 66 20 154/101 (118) 98 08/10/19 04:00 Room Air 08/10/19 03:26 64 08/10/19 00:00 97.0 59 18 155/88 (110) 98 08/10/19 00:00 Room Air 08/09/19 23:28 64 08/09/19 20:00 98.1 66 18 162/91 (114) 97 08/09/19 20:00 Room Air 08/09/19 19:22 72 08/09/19 16:00 97.5 70 21 161/85 (110) 97 08/09/19 16:00 67 08/09/19 15:58 Room Air 08/09/19 12:00 99.9 63 20 139/85 (103) 100 08/09/19 12:00 65 08/09/19 12:00 Room Air Intake and Output 08/09/19 08/10/19 18:59 06:59 Intake Total 1270 ml 900 ml Balance 1270 ml 900 ml Intake Oral 720 ml 300 ml IV Total 550 ml 600 ml # Voids 3 2 # Bowel Movements 3 Laboratory Tests 08/09/19 13:50: Stool Occult Blood Positive 08/10/19 05:20: White Blood Count 7.8, Red Blood Count 4.61, Hemoglobin 13.1, Hematocrit 40.5, Mean Corpuscular Volume 88, Mean Corpuscular Hemoglobin 28.5, Mean Corpuscular Hemoglobin Concent 32.5, Red Cell Distribution Width 15.0H, Platelet Count 270, Mean Platelet Volume 7.1, Neutrophils (%) (Auto) 59.5, Lymphocytes (%) (Auto) 28.3, Monocytes (%) (Auto) 8.5, Eosinophils (%) (Auto) 2.7, Basophils (%) (Auto ) 1.0, Prothrombin Time 15.7H, Prothromb Time International Ratio 1.5H, Sodium Level 141, Potassium Level 3.4L, Chloride Level 111H, Carbon Dioxide Level 27, Anion Gap 3L, Blood Urea Nitrogen 14, Creatinine 0.9, Estimat Glomerular Filtration Rate > 60, Glucose Level 118H, Hemoglobin A1c 6.2H, Calcium Level 8.0L, Total Bilirubin 0.7, Aspartate Amino Transf (AST/SGOT) 16, Alanine Aminotransferase (ALT/SGPT) 23, Alkaline Phosphatase 66, Total Protein 6.9, Albumin 3.0L, Globulin 3.9, Albumin/Globulin Ratio 0.8L, Amylase Level 52, Lipase 180 Height (Feet): 5 Height (Inches): 4.00 Weight (Pounds): 160 General Appearance: alert EENT: normal ENT inspection Neck: supple Cardiovascular: normal rate Respiratory/Chest: decreased breath sounds Abdomen: normal bowel sounds, non tender, soft Extremities: non-tender Jose David Munoz MD Aug 10, 2019 09:53
[2019-08-10 12:00] VITALS: BP 180/96
[2019-08-10 16:00] VITALS: BP 148/90
--- NOTE | 2019-08-10 16:07 | Diagnostic Imaging Report ---
Indication: Abdominal pain Technique: Grayscale and duplex Doppler imaging of the abdomen performed. Comparison: None Findings: The liver is unremarkable. Doppler interrogation of the main portal vein shows patency with hepatopedal, monophasic flow. There is no biliary ductal dilatation identified. Gallbladder is notable for multiple stones. CBD is normal at 3.3 mm. Sonographic Hayward's is negative per technologist. There demonstrated part of the pancreas, aorta and IVC show no definite abnormalities. Both kidneys appear unremarkable. There is no hydronephrosis. Doppler examination of the celiac artery obtained proximally shows elevated peak systolic velocity of 383 cm, which suggests significant stenosis. Further evaluation of this with the CTA is recommended. The SMA origin shows normal velocities. 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 Findings may be further elucidated by CTA.
[2019-08-10] MEDS: metFORMIN 500mg tab ORAL SCH (17:39)
[2019-08-10] MEDS ORDERED: Warfarin Sodium 5mg ORAL SCH (18:30)
--- NOTE | 2019-08-10 18:54 | Internal Med Progress Note ---
Subjective Date of Service: Aug 10, 2019 Physician Name Horton,Gilberto Attending Physician Geovanni Haile MD Current Medications Medications (Trade) Dose Ordered Sig/Sheila Route PRN Reason Start Time Stop Time Status Last Admin Dose Admin Acetaminophen (Tylenol) 650 mg Q4H PRN ORAL fever 08/08/19 20:30 09/07/19 20:29 Atenolol (Tenormin) 50 mg DAILY ORAL 08/09/19 09:00 09/08/19 08:59 08/10/19 09:52 Dextrose (Dextrose 50%) 25 ml Q30M PRN IV Hypoglycemia 08/08/19 20:30 09/07/19 20:29 Dextrose (Dextrose 50%) 50 ml Q30M PRN IV Hypoglycemia 08/08/19 20:30 09/07/19 20:29 Diphenhydramine HCl (Benadryl) 25 mg Q6H PRN ORAL Itching/Pruritis 08/08/19 20:30 09/07/19 20:29 Insulin Aspart (NovoLOG) BEFORE MEALS AND HS SUBQ 08/08/19 21:00 09/07/19 20:59 08/10/19 17:48 Ketorolac Tromethamine (Toradol 30mg) 30 mg Q6H PRN IV moderate pian 4-6 08/08/19 20:30 08/13/19 20:29 08/09/19 19:48 Metformin HCl (Glucophage) 500 mg BID ORAL 08/10/19 18:00 09/09/19 17:59 08/10/19 17:39 Nitroglycerin (Ntg) 0.4 mg Q5M X 3 DOSES PRN SL Prn Chest Pain 08/08/19 20:30 09/07/19 20:29 Ondansetron HCl (Zofran) 4 mg Q6H PRN IVP Nausea & Vomiting 08/08/19 20:30 09/07/19 20:29 08/09/19 07:59 Polyethylene Glycol (Miralax) 17 gm HSPRN PRN ORAL Constipation 08/08/19 20:30 09/07/19 20:29 Prednisone (predniSONE) 10 mg DAILY ORAL 08/10/19 17:45 09/09/19 17:44 08/10/19 17:49 Sodium Chloride 1,000 ml @ 50 mls/hr Q20H IV 08/08/19 20:29 09/07/19 20:28 08/10/19 12:18 Temazepam (Restoril) 15 mg HSPRN PRN ORAL Insomnia 08/08/19 20:30 08/15/19 20:29 Warfarin Sodium (Coumadin per pharmacy) 1 ea DAILY PRN MISC rx protocol 08/08/19 20:45 09/07/19 20:44 Warfarin Sodium (Coumadin) 10 mg COUMADIN ORAL 08/10/19 18:30 08/10/19 19:30 Allergies: Coded Allergies: MORPHINE (Verified Allergy, Severe, CONVULSIONS, 10/26/17) ROS Limited/Unobtainable: No Constitutional: Reports: no symptoms HEENT: Reports: no symptoms Cardiovascular: Reports: chest pain Respiratory: Reports: no symptoms Gastrointestinal/Abdominal: Reports: no symptoms Genitourinary: Reports: no symptoms Neurologic/Psychiatric: Reports: no symptoms Subjective 44 YO F admitted with chest pain. Cover for Int Yoel-Dr Haile Objective Last Vital Signs Date Time Temp Pulse Resp B/P (MAP) Pulse Ox O2 Delivery O2 Flow Rate FiO2 08/10/19 16:00 64 08/10/19 12:00 Room Air 08/10/19 12:00 97.5 18 180/96 (124) 97 08/08/19 19:35 96 Laboratory Tests Test 08/10/19 05:20 White Blood Count 7.8 K/UL (4.8-10.8) Red Blood Count 4.61 M/UL (4.20-5.40) Hemoglobin 13.1 G/DL (12.0-16.0) Hematocrit 40.5 % (37.0-47.0) Mean Corpuscular Volume 88 FL (80-99) Mean Corpuscular Hemoglobin 28.5 PG (27.0-31.0) Mean Corpuscular Hemoglobin Concent 32.5 G/DL (32.0-36.0) Red Cell Distribution Width 15.0 % (11.6-14.8) H Platelet Count 270 K/UL (150-450) Mean Platelet Volume 7.1 FL (6.5-10.1) Neutrophils (%) (Auto) 59.5 % (45.0-75.0) Lymphocytes (%) (Auto) 28.3 % (20.0-45.0) Monocytes (%) (Auto) 8.5 % (1.0-10.0) Eosinophils (%) (Auto) 2.7 % (0.0-3.0) Basophils (%) (Auto) 1.0 % (0.0-2.0) Prothrombin Time 15.7 SEC (9.30-11.50) H Prothromb Time International Ratio 1.5 (0.9-1.1) H Sodium Level 141 MMOL/L (136-145) Potassium Level 3.4 MMOL/L (3.5-5.1) L Chloride Level 111 MMOL/L (98-107) H Carbon Dioxide Level 27 MMOL/L (21-32) Anion Gap 3 mmol/L (5-15) L Blood Urea Nitrogen 14 mg/dL (7-18) Creatinine 0.9 MG/DL (0.55-1.30) Estimat Glomerular Filtration Rate > 60 mL/min (>60) Glucose Level 118 MG/DL (74-106) H Hemoglobin A1c 6.2 % (4.3-6.0) H Calcium Level 8.0 MG/DL (8.5-10.1) L Total Bilirubin 0.7 MG/DL (0.2-1.0) Aspartate Amino Transf (AST/SGOT) 16 U/L (15-37) Alanine Aminotransferase (ALT/SGPT) 23 U/L (12-78) Alkaline Phosphatase 66 U/L (46-116) Troponin I 0.000 ng/mL (0.000-0.056) Total Protein 6.9 G/DL (6.4-8.2) Albumin 3.0 G/DL (3.4-5.0) L Globulin 3.9 g/dL Albumin/Globulin Ratio 0.8 (1.0-2.7) L Amylase Level 52 U/L (25-115) Lipase 180 U/L (73-393) Microbiology Date/Time Source Procedure Growth Status 08/08/19 20:45 Rectum Received Intake and Output 08/09/19 08/10/19 19:00 07:00 Intake Total 1270 ml 900 ml Balance 1270 ml 900 ml Intake Oral 720 ml 300 ml IV Total 550 ml 600 ml # Voids 3 2 # Bowel Movements 3 Objective PHYSICAL EXAMINATION: GENERAL: The patient is awake and responsive, in no acute distress. HEAD AND NECK: Pupils are reactive to light. Extraocular movements intact. Neck was supple. No JVD. LUNGS: Clear. No wheezes or rales. HEART: S1, S2. Regular rhythm. Distant heart sounds. No murmurs or gallops. ABDOMEN: Soft, nontender, nontender. Positive bowel sounds. EXTREMITIES: No cyanosis, clubbing, or edema. NEUROLOGIC: Cranial nerves II through XII grossly intact. Motor is 5/5 in all extremities. RECTAL: Refused and deferred. GENITOURINARY: Refused and deferred. PSYCHIATRIC: Mood and affect Assessment/Plan Assessment/Plan ASSESSMENT: 1. Chest pain, possible acute coronary syndrome. 2. History of DVT and PE, on Coumadin anticoagulation. 3. Gallstone. 4. Diabetes type 2. 5. Hypertension. 6. Takayasu arteritis. PLAN: 1. Admit the patient to monitored unit. 2. We will follow up with Dr. Alva from [facility]. 3. We will monitor laboratory. 4. Followup serial cardiac enzymes. 5. Continue on warfarin therapy. 6. Code status is Full Code. Gilberto Horton MD Aug 10, 2019 18:54
[2019-08-10 20:00] VITALS: BP 146/90
[2019-08-11] VITALS: BP 141/84
[2019-08-11 04:00] VITALS: BP 159/92
[2019-08-11 04:48] LABS: BASOPHILS % (AUTO) 0.8 % (0.0-2.0); EOSINOPHILS % (AUTO) 1.7 % (0.0-3.0); HEMATOCRIT 41.2 % (37.0-47.0); HEMOGLOBIN 13.2 G/DL (12.0-16.0); LYMPHOCYTES % (AUTO) 27.3 % (20.0-45.0); MEAN CORPUSCULAR VOLUME 87 FL (80-99); MONOCYTES % (AUTO) 5.8 % (1.0-10.0); NEUTROPHILS % (AUTO) 64.5 % (45.0-75.0); PLATELET COUNT 266 K/UL (150-450); RED BLOOD COUNT 4.73 M/UL (4.20-5.40); RED CELL DISTRIBUTION WIDTH 14.5 % (11.6-14.8)
[2019-08-11 04:55] LABS: INR 1.1 (0.9-1.1)
[2019-08-11 05:05] LABS: ANION GAP 8 mmol/L (5-15); BLOOD UREA NITROGEN 15 mg/dL (7-18); CALCIUM 8.8 MG/DL (8.5-10.1); CARBON DIOXIDE 26 MMOL/L (21-32); CHLORIDE 112 MMOL/L (98-107); CREATININE 0.6 MG/DL (0.55-1.30); SODIUM 145 MMOL/L (136-145)
[2019-08-11] MEDS: NovoLOG Insulin Flexpen SUBQ SCH ×4 (06:30→20:10)
[2019-08-11 08:00] VITALS: BP 171/88
--- NOTE | 2019-08-11 08:09 | General Progress Note ---
Assessment/Plan Problem List: (1) Chest pain ICD Codes: R07.9 - Chest pain, unspecified SNOMED: 58252556 Qualifiers: Qualified Codes: R07.9 - Chest pain, unspecified (2) History of pulmonary embolism ICD Codes: Z86.711 - Personal history of pulmonary embolism SNOMED: 692120419 (3) Abdominal pain ICD Codes: R10.9 - Unspecified abdominal pain SNOMED: 78020228 (4) Diabetes mellitus ICD Codes: E11.9 - Type 2 diabetes mellitus without complications SNOMED: 57343696 (5) Generalized weakness ICD Codes: R53.1 - Weakness SNOMED: 11359245 (6) Cholelithiasis ICD Codes: K80.20 - Calculus of gallbladder without cholecystitis without obstruction SNOMED: 191076956 Qualifiers: Qualified Codes: K80.80 - Other cholelithiasis without obstruction Assessment/Plan: 1. DVTs and h/opulmonary embolism. 2. Gallstones. 3. H. pylori gastritis. 4. Diabetes. 5. Hypertension. 6. Takayasu arteritis. has had EGD in the last admission no anemia abd pain is better fu cardiology Subjective ROS Limited/Unobtainable: Yes Allergies: Coded Allergies: MORPHINE (Verified Allergy, Severe, CONVULSIONS, 10/26/17) Objective Last 24 Hour Vital Signs Date Time Temp Pulse Resp B/P (MAP) Pulse Ox O2 Delivery O2 Flow Rate FiO2 08/11/19 08:00 97.9 69 21 171/88 (115) 97 08/11/19 04:00 Room Air 08/11/19 04:00 98.1 59 20 159/92 (114) 98 08/11/19 03:23 70 08/11/19 00:00 60 08/11/19 00:00 Room Air 08/11/19 00:00 98.1 72 18 141/84 (103) 95 08/10/19 20:00 59 08/10/19 20:00 Room Air 08/10/19 20:00 98.6 70 20 146/90 (108) 94 08/10/19 16:00 98.1 58 18 148/90 (109) 98 08/10/19 16:00 Room Air 08/10/19 16:00 64 08/10/19 12:00 Room Air 08/10/19 12:00 57 08/10/19 12:00 97.5 56 18 180/96 (124) 97 08/10/19 09:52 64 163/100 Intake and Output 08/10/19 08/11/19 19:00 07:00 Intake Total 1020 ml 800 ml Balance 1020 ml 800 ml Intake Oral 420 ml 200 ml IV Total 600 ml 600 ml # Voids 7 2 Laboratory Tests 08/11/19 03:55: White Blood Count 8.0, Red Blood Count 4.73, Hemoglobin 13.2, Hematocrit 41.2, Mean Corpuscular Volume 87, Mean Corpuscular Hemoglobin 27.9, Mean Corpuscular Hemoglobin Concent 32.0, Red Cell Distribution Width 14.5, Platelet Count 266, Mean Platelet Volume 7.3, Neutrophils (%) (Auto) 64.5, Lymphocytes (%) (Auto) 27.3, Monocytes (%) (Auto) 5.8, Eosinophils (%) (Auto) 1.7, Basophils (%) (Auto ) 0.8, Prothrombin Time 12.0H, Prothromb Time International Ratio 1.1, Sodium Level 145, Potassium Level 4.0, Chloride Level 112H, Carbon Dioxide Level 26, Anion Gap 8, Blood Urea Nitrogen 15, Creatinine 0.6, Estimat Glomerular Filtration Rate > 60, Glucose Level 112H, Calcium Level 8.8 Height (Feet): 5 Height (Inches): 4.00 Weight (Pounds): 160 General Appearance: alert EENT: normal ENT inspection Neck: supple Cardiovascular: normal rate Respiratory/Chest: decreased breath sounds Abdomen: normal bowel sounds, non tender, soft Extremities: non-tender Jose David Munoz MD Aug 11, 2019 08:09
[2019-08-11] MEDS: metFORMIN 500mg tab ORAL SCH ×2 (08:28→17:48)
[2019-08-11] MEDS ORDERED: Omnipaue 350mg/ml 100ml vial INJ PRN (11:00)
--- NOTE | 2019-08-11 11:04 | Pulmonology Progress Note ---
Assessment/Plan Problems: (1) Chest pain (2) History of pulmonary embolus (PE) (3) Diabetes mellitus (4) PUD (peptic ulcer disease) Assessment/Plan Us of abdomen reviewed, radiologist recommended CTA of abdome awaiting cardiology consult GI consult reviewed symptomatic treatment sliding scale Subjective Interval Events: US of abdomen showed possible stenosis of celiac artery Allergies: Coded Allergies: MORPHINE (Verified Allergy, Severe, CONVULSIONS, 10/26/17) Objective Last 24 Hour Vital Signs Date Time Temp Pulse Resp B/P (MAP) Pulse Ox O2 Delivery O2 Flow Rate FiO2 08/11/19 08:29 69 171/88 08/11/19 08:00 97.9 69 21 171/88 (115) 97 08/11/19 04:00 Room Air 08/11/19 04:00 98.1 59 20 159/92 (114) 98 08/11/19 03:23 70 08/11/19 00:00 60 08/11/19 00:00 Room Air 08/11/19 00:00 98.1 72 18 141/84 (103) 95 08/10/19 20:00 59 08/10/19 20:00 Room Air 08/10/19 20:00 98.6 70 20 146/90 (108) 94 08/10/19 16:00 98.1 58 18 148/90 (109) 98 08/10/19 16:00 Room Air 08/10/19 16:00 64 08/10/19 12:00 Room Air 08/10/19 12:00 57 08/10/19 12:00 97.5 56 18 180/96 (124) 97 Intake and Output 08/10/19 08/11/19 19:00 07:00 Intake Total 1020 ml 800 ml Balance 1020 ml 800 ml Intake Oral 420 ml 200 ml IV Total 600 ml 600 ml # Voids 7 2 General Appearance: WD/WN HEENT: normocephalic, atraumatic Respiratory/Chest: chest wall non-tender, lungs clear Breasts: no masses Cardiovascular: normal peripheral pulses Abdomen: normal bowel sounds, soft, non tender Extremities: no cyanosis 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 Complete 08/08/19 20:45 Rectum VRE Culture - Final NO VANCOMYCIN RESISTANT ENTEROCOCCUS ... Complete 08/08/19 20:45 Rectum Received Laboratory Tests 08/11/19 03:55: White Blood Count 8.0, Red Blood Count 4.73, Hemoglobin 13.2, Hematocrit 41.2, Mean Corpuscular Volume 87, Mean Corpuscular Hemoglobin 27.9, Mean Corpuscular Hemoglobin Concent 32.0, Red Cell Distribution Width 14.5, Platelet Count 266, Mean Platelet Volume 7.3, Neutrophils (%) (Auto) 64.5, Lymphocytes (%) (Auto) 27.3, Monocytes (%) (Auto) 5.8, Eosinophils (%) (Auto) 1.7, Basophils (%) (Auto ) 0.8, Prothrombin Time 12.0H, Prothromb Time International Ratio 1.1, Sodium Level 145, Potassium Level 4.0, Chloride Level 112H, Carbon Dioxide Level 26, Anion Gap 8, Blood Urea Nitrogen 15, Creatinine 0.6, Estimat Glomerular Filtration Rate > 60, Glucose Level 112H, Calcium Level 8.8 Current Medications Medications (Trade) Dose Ordered Sig/Sheila Route PRN Reason Start Time Stop Time Status Last Admin Dose Admin Acetaminophen (Tylenol) 650 mg Q4H PRN ORAL fever 08/08/19 20:30 09/07/19 20:29 Atenolol (Tenormin) 50 mg DAILY ORAL 08/09/19 09:00 09/08/19 08:59 08/11/19 08:29 Dextrose (Dextrose 50%) 25 ml Q30M PRN IV Hypoglycemia 08/08/19 20:30 09/07/19 20:29 Dextrose (Dextrose 50%) 50 ml Q30M PRN IV Hypoglycemia 08/08/19 20:30 09/07/19 20:29 Diphenhydramine HCl (Benadryl) 25 mg Q6H PRN ORAL Itching/Pruritis 08/08/19 20:30 09/07/19 20:29 Insulin Aspart (NovoLOG) BEFORE MEALS AND HS SUBQ 08/08/19 21:00 09/07/19 20:59 08/10/19 21:45 Ketorolac Tromethamine (Toradol 30mg) 30 mg Q6H PRN IV moderate pian 4-6 08/08/19 20:30 08/13/19 20:29 08/09/19 19:48 Metformin HCl (Glucophage) 500 mg BID ORAL 08/10/19 18:00 09/09/19 17:59 08/11/19 08:28 Nitroglycerin (Ntg) 0.4 mg Q5M X 3 DOSES PRN SL Prn Chest Pain 08/08/19 20:30 09/07/19 20:29 Ondansetron HCl (Zofran) 4 mg Q6H PRN IVP Nausea & Vomiting 08/08/19 20:30 09/07/19 20:29 08/09/19 07:59 Polyethylene Glycol (Miralax) 17 gm HSPRN PRN ORAL Constipation 08/08/19 20:30 09/07/19 20:29 Prednisone (predniSONE) 10 mg DAILY ORAL 08/10/19 17:45 09/09/19 17:44 08/11/19 08:28 Sodium Chloride 1,000 ml @ 50 mls/hr Q20H IV 08/08/19 20:29 09/07/19 20:28 08/10/19 12:18 Temazepam (Restoril) 15 mg HSPRN PRN ORAL Insomnia 08/08/19 20:30 08/15/19 20:29 Warfarin Sodium (Coumadin per pharmacy) 1 ea DAILY PRN MISC rx protocol 08/08/19 20:45 09/07/19 20:44 Warfarin Sodium (Coumadin) 10 mg COUMADIN ORAL 08/11/19 17:00 08/11/19 18:00 Bhargavi Alva MD Aug 11, 2019 11:04
[2019-08-11 12:00] VITALS: BP 162/97
--- NOTE | 2019-08-11 14:27 | Cardiology Progress Note ---
Assessment/Plan Assessment/Plan full cardilogy not dicated [id number] [facility] rheum vsiti 07/2019 copy: CHRONIC MEDICAL CONDITIONS: 1. Pulmonary emboli with positive APS labs. 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 2. Chronic thromboembolic related pulmonary hypertension for which she has undergone thrombectomy in the past. She has chronic dyspnea on exertion. Previously tried on treatments for pulmonary hypertension, which were not helpful. TTE dated May 30, 2019 at [facility] during hospitalization with normal EF, RVSP 29. 3. Takayasu arteritis diagnosed in 2005. Review of note from Dr. Hutton in Pulmonary diseases here in 2010 documents findings of initial MRA in 2005. Chest MRA with marked wall thickening involving the descending thoracic aorta with segment associated with enlargement in the main pulmonary artery, suggestion of CTEPH with stenosis at the base of the right upper lobe, pulmonary arterial branch, moderate stenosis of the descending intralobar branch , modest decrease in perfusion to the right lower lobe basilar segments and high -grade stenosis involving left upper lobe descending interlobar pulmonary artery. Abdominal MRA 2005, abnormal perfusion involving the celiac, inferior mesenteric, right renal, suprarenal, abdominal aorta with wall thickening consistent with arteritis (since then, mesenteric arteries here have been commented on being normal). Last CTA chest dated June 02, 2019 ([facility]) without evidence of PE and no change in areas of vasculitis surrounding the pulmonary arteries with narrowing of the right lower lobe segmental pulmonary artery branches dating back to 2011. Also with vasculitis of the descending thoracic and upper abdominal aorta and right lower lobe reticular/ground-glass opacities along with dilated pulmonary artery. CT abdomen pelvis dated May 29, 2019 showed increasing vasculitis compared to 2013 study with circumferential tissue surrounding the aorta causing severe narrowing of the common iliac arteries, engulfing the inferior vena cava with proximal common iliac veins containing thrombus. Previous treatment has included prednisone, methotrexate, Remicade which she says was ineffective, tocilizumab. Details about the duration of treatment, doses, etc., are unknown. 4. 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 Limited granulomatosis with polyangiitis. Previously per notes, also noted to have microscopic hematuria. 5. IVC stenosis with retroperitoneal adenopathy. Cause unclear. IgG subclasses previously tested normal. 6. Preeclampsia with placental abruption. 7. Latent tuberculosis status post treatment with 6 months of INH. RHEUMATOLOGIC HISTORY: History is limited by patchy records and her poor recollection of treatment. Details in my note from March 30, 2019 when she was first evaluated by me. As best I can gather, her history dates back to 2005 when she developed shortness of breath. Eventually underwent imaging which showed findings of pulmonary emboli. At that time, also had MRA of the chest, which showed findings that were suspicious for Takayasu arteritis. Noted to have positive cardiolipin testing and given diagnosis of APS. She had complications with preeclampsia and contractions with placental abruptia. Per a provider note from 2005, a CT angiogram showed enlargement of the coronary arteries, main pulmonary artery, arterial thickening involving the left main, bilateral intermediate, bilateral lower, and right upper lobar and lingular arteries, mid and distal thoracic aorta. Abdominal MRA 2005, abnormal perfusion involving the celiac, inferior mesenteric, right renal, suprarenal, abdominal aorta with wall thickening consistent with arteritis (since then, mesenteric arteries here have been commented on being normal). Given the diagnosis of Takayasu arteritis. Started on pulse steroids. Treatment history is unclear because she does not remember the details. Treatment has included methotrexate, infliximab, tocilizumab (around 2017). Then hospitalized twice at [facility], in December and February 2019. Both times, thought to have a flare of Takayasu arteritis. After her December hospitalization, she was seen by Dr. Anderson who wanted to try Stelara. Apparently that never got approved. Then came back to the ER in February 2019 with abdominal pain and joint pain she says, although the notes document chest pain as well. At that point, dismissed on high doses of prednisone with followup in Rheumatology. Her main complaint which is consistent is shortness of breath. She has been evaluated by numerous pulmonologists. Also thought to have a component of chronic thromboembolic pulmonary hypertension and has had thrombectomies in the past. We discussed prednisone taper. Humira was started ( given unclear efficacy of other steroid sparing medications). She was also noted to have a saddle nose deformity on examination, nasal crusting, chronic sinusitis and intermittently positive MPO/microscopic hematuria for which diagnosis of GPA was considered. Humira started end May 2019 (prescribed in March but didn't get medication till then). Then, started to have severe left upper quadrant pain for which she was hospitalized at [facility] in May 29-2018. CRP was 113 mg/L, ESR 84 mm/hour. Repeat imaging there dated June 02, 2019 without evidence of PE and no change in areas of vasculitis surrounding the pulmonary arteries with narrowing of the right lower lobe segmental pulmonary artery branches dating back to 2012. Also with vasculitis of the descending thoracic and upper abdominal aorta and right lower lobe reticular/ground-glass opacities along with dilated pulmonary artery. CT abdomen /pelvis dated May 29, 2019 showed increasing vasculitis compared to 2013 study with circumferential tissue surrounding the aorta causing severe narrowing of the common iliac arteries, engulfing the inferior vena cava with proximal common iliac veins containing thrombus. Venous duplex maging from May 31, 2019 with subacute non-occlusive thrombus in the infranrela vena cava and right and left common iliac veins. Also underwent arterial ultrasound of the aorta and iliac arteries which showed moderate stenosis of the right common iliac artery. Pulsed with steroids and also treated with Levaquin for unclear reason (note says for dyspnea and concern for opportunistic infection). Discharged on prednisone 40 mg daily with rapid taper to 5 mg. She discontinued it and had worsening symptoms. Restarted on prednisone 20 mg on June 19, 2019 at our visit. SOCIAL HISTORY: She does not work. 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 No smoking, alcohol, drug use. PHYSICAL EXAM: Vitals: 08/06/19 1622 BP: 127/84 Pulse: 58 Temp: 36.5 C (97.7 F) TempSrc: Oral Weight: 142 lb (64.4 kg) Height: 4' 11" (1.499 m) Pain Information (Last Filed) Score Location Comments Edu? 5 None None None General: Alert, well appearing in no acute distress. Psych: Appropriate mood and affect. Mildly anxious appearing. Gait: Normal. Eyes: No conjunctival injection. ENT: Saddle nose deformity. No oral ulcers. Lymph: No cervical or supraclavicular adenopathy. Tender over trachea. Heart: Regular, no murmurs. Lungs: Clear to auscultation bilaterally. Joints: Good range of motion of the joints in the upper and lower extremities, which is within normal limits for her age. All PIP joints tender but not swollen. Skin: No rashes or nodulosis. No vasculitic lesions. Vessels: Normal carotid upstrokes bilaterally. Normal radial pulses bilaterally. Normal pedal pulses including right. Still cannot appreciate any carotid, subclavian bruits. RECORD REVIEW: Last laboratory testing dated June 19, 2019 included normal CBC, CMP (K 3.5), UA, ESR 74 mm/h, CRP 0.7 mg/dl. INR 6.5. Records from [facility] hospitalization in May 2019: CT angiogram of the chest dated June 02, 2019 without evidence of PE and no change in areas of vasculitis surrounding the pulmonary arteries with narrowing of the right lower lobe segmental pulmonary artery branches dating back to 2011. Also with vasculitis of the descending thoracic and upper abdominal aorta and right lower lobe reticular/ground-glass opacities along with dilated pulmonary artery. CT abdomen pelvis dated May 29, 2019 showed increasing vasculitis compared to 2013 study with circumferential tissue surrounding the aorta causing severe narrowing of the common iliac arteries, engulfing the inferior vena cava with proximal common iliac veins containing thrombus. Retroperitoneal adenopathy which has been noted on imaging here was not as prominent with comment of only small more than numerous less than 5 mm retroperitoneal lymph nodes. TTE dated May 30, 2019 with normal EF, RVSP 29. Vascular studies of the lower extremities dated May 31, 2019 showed normal CON at the left of 1.04 but 0.9 to on the right with tibial Doppler forms showing moderate ischemia at rest. Venous duplex maging from May 31, 2019 with subacute non-occlusive thrombus in the infranrela vena cava and right and left common iliac veins. Also underwent arterial ultrasound of the aorta and iliac arteries which showed moderate stenosis of the right common iliac artery. IMPRESSION/PLAN: 1. Takayasu arteritis. 2. Elevated markers of inflammation. 3. Polyarthralgia. 4. High risk medication use. 5. Latent tuberculosis, treated. 6. Abdominal pain. Incredibly complex case given all the different diagnoses and comorbidities. Furthermore, management is complicated by multiple factors including inconsistencies in her story, her being poor historian, evidence of poor insight about her medical condition, fragmented care between multiple specialists outside of [facility] and multiple ER visits/hospitalizations. In the interim, hospitalized at [facility]. Extensive evaluation has been summarized above. Recent CTA at [facility] and studies were compared to 2013. Our last imaging is from December 2018 and we have no comparison since. Given a diagnosis of flare of vasculitis although unclear that there was any worsening on imaging (their last comparison study was in 2012). Only new area of involvement is iliac artery involvement which has not been commented on CT abdomen/pelvis here and arterial studies here from February 2019 showed biphasic SFA, popliteal waveforms. Since last visit, restarted prednisone 20 mg daily. Part of the challenges that the symptoms she complains about do not correlate with disease activity and not typical for Takayasu arteritis apart from right lower extremity pain which is provoked with activity and is likely related to new stenosis noted on imaging. Joint pain is atypical. Present all the time. No synovitis on examination. She denies magdaleno improvement after starting Humira. She wonders about topicals. Reviewed Voltaren gel is the prescription topical but given concurrent anticoagulation, do not recommend this treatment. She has multiple joints that she would be using it on not just 1 or 2. Regarding Takayasu taking prednisone 15 mg daily as prescribed along with Humira every 2 weeks. Laboratory testing was obtained today including CBC, CMP, markers of inflammation which appear to correlate well with disease activity and also UA with upc (unclear if she has overlap with small-vessel vasculitis). Recommended she continue prednisone 15 mg daily for now until I have reviewed results. If markers of inflammation are normal/improved, plan to taper prednisone to 12.5 mg for 2 weeks and then 10 mg until follow-up with me in 6 weeks. Hopefully, on Humira, vasculitis will be well managed and we will be able to taper prednisone below 5 mg. She also needs repeat imaging in a few months. 7. 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 Features suspicious for overlap with granulomatosis with polyangiitis (Devonte's ) but for the moment, need to assess large-vessel vasculitis and its treatment. 8. Numbness feet. 9. Diabetes mellitus. Didn't complain of this today. 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 11. Chronic dyspnea on exertion. 12. APS on anticoagulation. These are not being evaluated or managed by rheumatology. At last visit was asking me about oxygen but defer to her primary care physician. We discussed evaluation with apulmonologist given her extensive history of CTEPH but again defer to primary care. 13. Elevated LDH. 14. Inferior vena cava stenosis. 15. Retroperitoneal adenopathy. Unclear what is causing IVC stenosis. Not a feature of Takayasu. Prior imaging here mentioned retroperitoneal adenopathy causing compression and she has been noted to have an elevated LDH so manifestations like lymphoma needs to be considered. However, imaging done at [facility] was interpreted as no significant adenopathy but that the circumferential tissue around the aorta was "engulfing the IVC and the proximal common iliac veins with thrombosis which is not a feature of Takayasu arteritis. Previous IgG subclasses tested in December 2018 was normal. At some point, goal is to get repeat imaging in our system after she has been on treatment so we can truly assess status of vasculitis. 16. Abdominal pain. Continues to complain of intermittent abdominal pain which has even resulted in ER visits and hospital admissions. Currently endorsing intermittent epigastric discomfort, bowel changes and also left lower quadrant pain. Imaging done in the past has not revealed any serious etiology. Recommended she see Gastroenterology and also Gynecology. Referrals were made. 17. Right hip pain. Findings consistent with greater trochanteric pain syndrome. Stretches were discussed. Return in 6 weeks. The above plan of care, diagnosis, orders, and follow-up were discussed with the patient. Questions related to this recommended plan of care were answered. Sydnie Veloz MD ([id number]) Objective Last 24 Hour Vital Signs Date Time Temp Pulse Resp B/P (MAP) Pulse Ox O2 Delivery O2 Flow Rate FiO2 08/11/19 12:00 97.7 55 20 162/97 (118) 98 08/11/19 12:00 55 08/11/19 12:00 Room Air 08/11/19 08:29 69 171/88 08/11/19 08:00 97.9 69 21 171/88 (115) 97 08/11/19 08:00 72 08/11/19 08:00 Room Air 08/11/19 04:00 Room Air 08/11/19 04:00 98.1 59 20 159/92 (114) 98 08/11/19 03:23 70 08/11/19 00:00 60 08/11/19 00:00 Room Air 08/11/19 00:00 98.1 72 18 141/84 (103) 95 08/10/19 20:00 59 08/10/19 20:00 Room Air 08/10/19 20:00 98.6 70 20 146/90 (108) 94 08/10/19 16:00 98.1 58 18 148/90 (109) 98 08/10/19 16:00 Room Air 08/10/19 16:00 64 Intake and Output 08/10/19 08/11/19 18:59 06:59 Intake Total 1020 ml 800 ml Balance 1020 ml 800 ml Intake Oral 420 ml 200 ml IV Total 600 ml 600 ml # Voids 7 2 Laboratory Tests Test 08/11/19 03:55 White Blood Count 8.0 K/UL (4.8-10.8) Red Blood Count 4.73 M/UL (4.20-5.40) Hemoglobin 13.2 G/DL (12.0-16.0) Hematocrit 41.2 % (37.0-47.0) Mean Corpuscular Volume 87 FL (80-99) Mean Corpuscular Hemoglobin 27.9 PG (27.0-31.0) Mean Corpuscular Hemoglobin Concent 32.0 G/DL (32.0-36.0) Red Cell Distribution Width 14.5 % (11.6-14.8) Platelet Count 266 K/UL (150-450) Mean Platelet Volume 7.3 FL (6.5-10.1) Neutrophils (%) (Auto) 64.5 % (45.0-75.0) Lymphocytes (%) (Auto) 27.3 % (20.0-45.0) Monocytes (%) (Auto) 5.8 % (1.0-10.0) Eosinophils (%) (Auto) 1.7 % (0.0-3.0) Basophils (%) (Auto) 0.8 % (0.0-2.0) Prothrombin Time 12.0 SEC (9.30-11.50) H Prothromb Time International Ratio 1.1 (0.9-1.1) Sodium Level 145 MMOL/L (136-145) Potassium Level 4.0 MMOL/L (3.5-5.1) Chloride Level 112 MMOL/L (98-107) H Carbon Dioxide Level 26 MMOL/L (21-32) Anion Gap 8 mmol/L (5-15) Blood Urea Nitrogen 15 mg/dL (7-18) Creatinine 0.6 MG/DL (0.55-1.30) Estimat Glomerular Filtration Rate > 60 mL/min (>60) Glucose Level 112 MG/DL (74-106) H Calcium Level 8.8 MG/DL (8.5-10.1) Microbiology Date/Time Source Procedure Growth Status 08/08/19 20:45 Nasal Nares MRSA Culture - Final NO METHICILLIN RESISTANT STAPH AUREUS... Complete 08/08/19 20:45 Rectum VRE Culture - Final NO VANCOMYCIN RESISTANT ENTEROCOCCUS ... Complete 08/08/19 20:45 Rectum Received Gary Lott MD Aug 11, 2019 14:27
--- NOTE | 2019-08-11 15:00 | Diagnostic Imaging Report ---
Indication: Abdominal Pain Technique: Continuous helical transaxial imaging of the abdomen and pelvis was obtained from the lung base to the pubic symphysis during rapid intravenous contrast administration. Arterial phase of enhancement obtained. Coronal 2-D reformats were also obtained and maximum intensity projection images in multiple planes. Study obtained in a Siemens sensation [address] Total Dose length Product (DLP): 749.[address] Dose Index Volume (CTDIvol): 109.2 mGy Comparison: None Findings: The aorta is abnormal with some diminishing caliber of the central opacified portion of the lumen with a ill-defined thickened wall. The findings are consistent with an aortitis and may be secondary to vasculitis or even atherosclerotic vascular disease. This may be associated with the luminal narrowing that is seen at the origin of the celiac artery, which on this examination is estimated at between 60 and 70%. There is some degree of poststenotic dilatation within the proximal celiac artery also noted. There is mild narrowing at the origin of the SMA estimated at 20-30%. There is moderate narrowing that is smooth and circumferential involving the distal aorta just before the bifurcation. Both common iliac arteries are also narrowed particularly on the right with poststenotic dilatation present within the common iliac arteries. There is no definite renal artery stenosis present. The inferior mesenteric artery is patent. Within the retroperitoneum, there are multiple small nodes which are nonspecific in nature. Multiple gallstones are present. There is scarring in the anterior midportion of the right kidney which shows focal volume loss and contour irregularity. At the visualized lung bases, there are small paraseptal blebs present posteriorly. There is a mild degree of bronchiectasis also noted within the lower lobes and some coarse linear densities probably representing scarring. There are diverticula within the colon. There is no free fluid. 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 This is characterized by thickening and ill-definition of the wall of aorta, luminal stenosis and periaortic lymph nodes. This is associated with focal stenosis at the origin of the celiac artery (60-70%), SMA (20-30%), moderate stenosis of both common iliac arteries. Differential diagnosis is large include both infectious and noninfectious causes such as large cell vasculitis and a variety of inflammatory/autoimmune diseases. Clinical workup and evaluation is needed. Emphysematous paraseptal bleb formation and mild fibrosis at the lung bases. Traction bronchiectasis. Scarring right kidney Cholelithiasis Diverticulosis of the colon. The CT scanner at [facility] is accredited by the [employer] and the scans are performed using dose optimization techniques as appropriate to a performed exam including Automatic Exposure control.
[2019-08-11 16:00] VITALS: BP 172/82
[2019-08-11] MEDS ORDERED: Warfarin Sodium 5mg ORAL SCH (17:00)
--- NOTE | 2019-08-11 17:47 | Internal Med Progress Note ---
Subjective Date of Service: Aug 11, 2019 Physician Name HortonGilberto Attending Physician Geovanni Haile MD Current Medications Medications (Trade) Dose Ordered Sig/Sheila Route PRN Reason Start Time Stop Time Status Last Admin Dose Admin Acetaminophen (Tylenol) 650 mg Q4H PRN ORAL fever 08/08/19 20:30 09/07/19 20:29 Atenolol (Tenormin) 50 mg DAILY ORAL 08/09/19 09:00 09/08/19 08:59 08/11/19 08:29 Barium Sulfate (Readi-Cat 2) 450 ml NOW PRN ORAL Radiology Procedure 08/11/19 11:00 08/13/19 10:59 Dextrose (Dextrose 50%) 25 ml Q30M PRN IV Hypoglycemia 08/08/19 20:30 09/07/19 20:29 Dextrose (Dextrose 50%) 50 ml Q30M PRN IV Hypoglycemia 08/08/19 20:30 09/07/19 20:29 Diphenhydramine HCl (Benadryl) 25 mg Q6H PRN ORAL Itching/Pruritis 08/08/19 20:30 09/07/19 20:29 Insulin Aspart (NovoLOG) BEFORE MEALS AND HS SUBQ 08/08/19 21:00 09/07/19 20:59 08/10/19 21:45 Iohexol (Omnipaque) 100 mg NOW PRN INJ Radiology Procedure 08/11/19 11:00 08/13/19 10:59 Ketorolac Tromethamine (Toradol 30mg) 30 mg Q6H PRN IV moderate pian 4-6 08/08/19 20:30 08/13/19 20:29 08/09/19 19:48 Metformin HCl (Glucophage) 500 mg BID ORAL 08/10/19 18:00 09/09/19 17:59 08/11/19 08:28 Nitroglycerin (Ntg) 0.4 mg Q5M X 3 DOSES PRN SL Prn Chest Pain 08/08/19 20:30 09/07/19 20:29 Ondansetron HCl (Zofran) 4 mg Q6H PRN IVP Nausea & Vomiting 08/08/19 20:30 09/07/19 20:29 08/09/19 07:59 Polyethylene Glycol (Miralax) 17 gm HSPRN PRN ORAL Constipation 08/08/19 20:30 09/07/19 20:29 Prednisone (predniSONE) 10 mg DAILY ORAL 08/10/19 17:45 09/09/19 17:44 08/11/19 08:28 Sodium Chloride 1,000 ml @ 50 mls/hr Q20H IV 08/08/19 20:29 09/07/19 20:28 08/11/19 08:01 Temazepam (Restoril) 15 mg HSPRN PRN ORAL Insomnia 08/08/19 20:30 08/15/19 20:29 Warfarin Sodium (Coumadin per pharmacy) 1 ea DAILY PRN MISC rx protocol 08/08/19 20:45 09/07/19 20:44 Warfarin Sodium (Coumadin) 10 mg COUMADIN ORAL 08/11/19 17:00 08/11/19 18:00 Allergies: Coded Allergies: MORPHINE (Verified Allergy, Severe, CONVULSIONS, 10/26/17) ROS Limited/Unobtainable: No Constitutional: Reports: no symptoms HEENT: Reports: no symptoms Cardiovascular: Reports: chest pain Respiratory: Reports: no symptoms Gastrointestinal/Abdominal: Reports: abdominal pain Genitourinary: Reports: no symptoms Neurologic/Psychiatric: Reports: no symptoms Subjective 44 YO F admitted with chest pain. Cover for Int Med-Dr Haile. AMADEO Objective Last Vital Signs Date Time Temp Pulse Resp B/P (MAP) Pulse Ox O2 Delivery O2 Flow Rate FiO2 08/11/19 16:00 59 08/11/19 16:00 Room Air 08/11/19 12:00 97.7 20 162/97 (118) 98 08/08/19 19:35 96 Laboratory Tests Test 08/11/19 03:55 White Blood Count 8.0 K/UL (4.8-10.8) Red Blood Count 4.73 M/UL (4.20-5.40) Hemoglobin 13.2 G/DL (12.0-16.0) Hematocrit 41.2 % (37.0-47.0) Mean Corpuscular Volume 87 FL (80-99) Mean Corpuscular Hemoglobin 27.9 PG (27.0-31.0) Mean Corpuscular Hemoglobin Concent 32.0 G/DL (32.0-36.0) Red Cell Distribution Width 14.5 % (11.6-14.8) Platelet Count 266 K/UL (150-450) Mean Platelet Volume 7.3 FL (6.5-10.1) Neutrophils (%) (Auto) 64.5 % (45.0-75.0) Lymphocytes (%) (Auto) 27.3 % (20.0-45.0) Monocytes (%) (Auto) 5.8 % (1.0-10.0) Eosinophils (%) (Auto) 1.7 % (0.0-3.0) Basophils (%) (Auto) 0.8 % (0.0-2.0) Prothrombin Time 12.0 SEC (9.30-11.50) H Prothromb Time International Ratio 1.1 (0.9-1.1) Sodium Level 145 MMOL/L (136-145) Potassium Level 4.0 MMOL/L (3.5-5.1) Chloride Level 112 MMOL/L (98-107) H Carbon Dioxide Level 26 MMOL/L (21-32) Anion Gap 8 mmol/L (5-15) Blood Urea Nitrogen 15 mg/dL (7-18) Creatinine 0.6 MG/DL (0.55-1.30) Estimat Glomerular Filtration Rate > 60 mL/min (>60) Glucose Level 112 MG/DL (74-106) H Calcium Level 8.8 MG/DL (8.5-10.1) Microbiology Date/Time Source Procedure Growth Status 08/08/19 20:45 Nasal Nares MRSA Culture - Final NO METHICILLIN RESISTANT STAPH AUREUS... Complete 08/08/19 20:45 Rectum VRE Culture - Final NO VANCOMYCIN RESISTANT ENTEROCOCCUS ... Complete 08/08/19 20:45 Rectum Received Intake and Output 08/10/19 08/11/19 18:59 06:59 Intake Total 1020 ml 800 ml Balance 1020 ml 800 ml Intake Oral 420 ml 200 ml IV Total 600 ml 600 ml # Voids 7 2 Objective PHYSICAL EXAMINATION: GENERAL: The patient is awake and responsive, in no acute distress. HEAD AND NECK: Pupils are reactive to light. Extraocular movements intact. Neck was supple. No JVD. LUNGS: Clear. No wheezes or rales. HEART: S1, S2. Regular rhythm. Distant heart sounds. No murmurs or gallops. ABDOMEN: Soft, nontender, nontender. Positive bowel sounds. EXTREMITIES: No cyanosis, clubbing, or edema. NEUROLOGIC: Cranial nerves II through XII grossly intact. Motor is 5/5 in all extremities. RECTAL: Refused and deferred. GENITOURINARY: Refused and deferred. PSYCHIATRIC: Mood and affect Assessment/Plan Assessment/Plan ASSESSMENT: 1. Chest pain, possible acute coronary syndrome. 2. History of DVT and PE, on Coumadin anticoagulation. 3. Gallstone. 4. Diabetes type 2. 5. Hypertension. 6. Takayasu arteritis. PLAN: 1. Admit the patient to monitored unit. 2. We will follow up with Dr. Alva from [facility]. 3. We will monitor laboratory. 4. Followup serial cardiac enzymes. 5. Continue on warfarin therapy. 6. Code status is Full Code. Gilberto Horton MD Aug 11, 2019 17:47
[2019-08-11 20:00] VITALS: BP 184/94
[2019-08-11] MEDS ORDERED: HydrALAZINE 10mg Tab ORAL PRN ×2 (20:15→20:34)
[2019-08-11] MEDS ORDERED: Nitroglycerin Subl 0.4mg tab SL PRN (20:30)
[2019-08-11] MEDS ORDERED: Ketorolac 30mg Inj IV PRN (20:34)
[2019-08-11] MEDS ORDERED: Miralax 17gm pkt ORAL PRN (20:34)
[2019-08-11] MEDS ORDERED: NovoLOG Insulin Flexpen SUBQ SCH (21:00)
[2019-08-12] VITALS: BP 160/78
--- NOTE | 2019-08-12 00:30 | Consultation ---
DATE OF CONSULTATION: 08/11/2019 CARDIOLOGY CONSULTATION CONSULTING PHYSICIAN: Gary Lott M.D. REFERRING PHYSICIANS: Geovanni Haile M.D. and Bhargavi Alva M.D. REASON FOR REFERRAL: Epigastric/chest pain. HISTORY OF PRESENT ILLNESS: This is an unfortunate middle-aged female who basically has had multiple medical problems as below. The patient has had some pain in the epigastric area since Saturday when she presented to the hospital. The pain has been initially very severe although at the present time is much less in the epigastric area. No relieving or exacerbating factors identified by the patient specifically. No change with walking. No change with deep breathing or coughing or twisting and turning or deep inspiration, but noted that the patient's pain in the epigastric area radiates directly to the back. The patient does not have any PND, uses 2 pillows. There is no orthopnea. She does have dyspnea on exertion that has been going on since 2005 when she had her pulmonary embolism diagnosed at that time. She has occasional dizziness and lightheadedness on standing and really no palpitations. PAST MEDICAL HISTORY: Extensive, she has been recently hospitalized at [facility] where information is also obtained from my review of the chart and the patient is usually followed by [facility]. Rheumatology problem last time and she was seen by Dr. Veloz, it was on 08/06/2019. She has history of pulmonary embolism with positive antiphospholipid antibody syndrome on chronic anticoagulation, chronic thromboembolic related pulmonary hypertension which was in the past, chronic dyspnea on exertion, previously treatments for pulmonary hypertension were not helpful. In May when she had echo, she was noted to have a right ventricle systolic pressure of 29. She has a history of Takayasu arteritis attack by MRA in 2005 with marked wall thickening involving the descending thoracic aorta segment associated with enlargement of the main pulmonary artery suggestive of chronic thromboembolic pulmonary hypertension with stenosis at the base of the right lobe, pulmonary arterial branch, moderate stenosis of descending interlobar branches were noted. There is modest decrease in perfusion of right lower lobe basilar segments and high-grade stenosis of the left upper pulmonary artery. Abdominal MRI shows abnormal perfusion down the celiac, inferior mesenteric, right renal, suprarenal, abdominal aorta, and wall thickening. She has a subtle nose deformity with sinusitis. History of IVC stenosis with retroperitoneal adenopathy, cause unclear, pre-eclampsia, placental abruption, latent tuberculosis status post treatment with 6 months of INH therapy. Diabetes mellitus secondary to steroid usage. SOCIAL HISTORY: She never smoked or drank. 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 No alcohol, no drugs, and no tobacco. REVIEW OF SYSTEMS: GASTROINTESTINAL: She has occasional nausea, occasional diarrhea, occasional constipation. No black or bloody stool. GENITOURINARY: Negative. PULMONARY: Occasional coughing. No wheezing. CONSTITUTIONAL: No fever, chills, or night sweats. NEUROLOGIC: Negative. PHYSICAL EXAMINATION: GENERAL: Shows an elderly middle-aged female, in no respiratory distress. NECK: Supple. No jugular venous distention. LUNGS: Clear to auscultation and percussion. CARDIAC: S1 is normal. S2 is normal. Regular rate and rhythm. No heaves or thrills. ABDOMEN: Soft, nontender. Positive bowel sounds. Epigastric tenderness to deep palpation. No guarding. No rigidity. EXTREMITIES: There is no clubbing, cyanosis, or edema. NEUROLOGICAL: She is awake, alert, responsive, in no apparent distress. LABORATORY VALUES: White count 8, hemoglobin 13.2, and platelet count of 266. Sodium 145, potassium 4.0, chloride 112, bicarb 26, BUN of 15, creatinine 0.6, and glucose of 112, calcium is 8.8. Troponin 0.00 yesterday and on 08/08/2019 as well. Amylase was initially 431, subsequently 180. TSH of 1.018. IMAGING: Venous duplex of the lower extremity shows no evidence of deep venous thromboses. Chest x-ray shows mild accentuation of bronchoalveolar markings. CTA of thorax shows no pulmonary embolism, segmental regional luminal alveolar thickening involving descending thoracic aorta, abdominal aorta, and cholelithiasis. ASSESSMENT AND PLAN: 1. Epigastric pain. 2. Takayasu arteritis. 3. Polyarthritis. 4. Latent tuberculosis, status post treatment. 5. History of chronic abdominal pain. 6. Suspected limited GPA. 7. Diabetes mellitus. 8. Chronic thromboembolic pulmonary hypertension. 9. Chronic dyspnea on exertion. 10. Antiphospholipid syndrome, on anticoagulation. 11. IVC stenosis. 12. Retroperitoneal adenopathy history. Dr. aHile and Dr. Alva, this patient was seen in cardiac consultation. I have had a chance to review the patient's [facility] records and most recent records from more than of 4 or 5 days ago where the tool grinder set up operator gear indicates that the patient has had this abdominal pain on prior multiple occasions and imaging apparently did not reveal prior etiology. The patient was recommended to see GI as well as Gynecology. Referrals were provided for the patient at that time. During this hospitalization, there is no evidence of myonecrosis. There is no other significant abnormalities noted on testing so far. She should be continued on her chronic anticoagulation therapy. Gary Lott M.D. DR: MARQUISE JOB#: [id number] CC:
[2019-08-12 04:00] VITALS: BP 171/89
[2019-08-12 05:00] VITALS: BP 153/84
[2019-08-12] MEDS ORDERED: NovoLOG Insulin Flexpen SUBQ SCH (06:30)
[2019-08-12 06:31] LABS: BASOPHILS % (AUTO) 0.8 % (0.0-2.0); EOSINOPHILS % (AUTO) 3.3 % (0.0-3.0); HEMATOCRIT 41.5 % (37.0-47.0); HEMOGLOBIN 13.2 G/DL (12.0-16.0); LYMPHOCYTES % (AUTO) 37.6 % (20.0-45.0); MEAN CORPUSCULAR VOLUME 88 FL (80-99); MONOCYTES % (AUTO) 5.9 % (1.0-10.0); NEUTROPHILS % (AUTO) 52.3 % (45.0-75.0); PLATELET COUNT 294 K/UL (150-450); RED BLOOD COUNT 4.72 M/UL (4.20-5.40); RED CELL DISTRIBUTION WIDTH 14.7 % (11.6-14.8); WHITE BLOOD COUNT 8.1 K/UL (4.8-10.8)
[2019-08-12 06:40] LABS: INR 1.2 (0.9-1.1)
[2019-08-12 07:17] LABS: ANION GAP 10 mmol/L (5-15); BLOOD UREA NITROGEN 10 mg/dL (7-18); CARBON DIOXIDE 25 MMOL/L (21-32); CHLORIDE 112 MMOL/L (98-107); CREATININE 0.6 MG/DL (0.55-1.30); POTASSIUM 3.6 MMOL/L (3.5-5.1); SODIUM 147 MMOL/L (136-145)
[2019-08-12 07:32] VITALS: BP 155/81
[2019-08-12 08:53] VITALS: BP 155/81
[2019-08-12] MEDS ORDERED: NS Irrig 1000ml ONE (12:03)
[2019-08-12] MEDS ORDERED: Tubing IV Secondary IV ONE (12:03)
[2019-08-12] MEDS ORDERED: NS 275ml ONE (12:03)
--- NOTE | 2019-08-12 12:07 | Internal Med Progress Note ---
Subjective Date of Service: Aug 12, 2019 Physician Name Gilberto Horton Attending Physician Geovanni Haile MD Allergies: Coded Allergies: MORPHINE (Verified Allergy, Severe, CONVULSIONS, 10/26/17) ROS Limited/Unobtainable: No Constitutional: Reports: no symptoms HEENT: Reports: no symptoms Cardiovascular: Reports: no symptoms Respiratory: Reports: no symptoms Gastrointestinal/Abdominal: Reports: no symptoms Genitourinary: Reports: no symptoms Neurologic/Psychiatric: Reports: no symptoms Subjective 44 YO F admitted with chest pain. Cover for Int Med-Dr Haile. Objective Last Vital Signs Date Time Temp Pulse Resp B/P (MAP) Pulse Ox O2 Delivery O2 Flow Rate FiO2 08/12/19 09:00 Room Air 08/12/19 08:53 68 155/81 08/12/19 07:32 97.9 16 97 08/08/19 19:35 96 Laboratory Tests Test 08/12/19 05:25 White Blood Count 8.1 K/UL (4.8-10.8) Red Blood Count 4.72 M/UL (4.20-5.40) Hemoglobin 13.2 G/DL (12.0-16.0) Hematocrit 41.5 % (37.0-47.0) Mean Corpuscular Volume 88 FL (80-99) Mean Corpuscular Hemoglobin 28.0 PG (27.0-31.0) Mean Corpuscular Hemoglobin Concent 31.8 G/DL (32.0-36.0) L Red Cell Distribution Width 14.7 % (11.6-14.8) Platelet Count 294 K/UL (150-450) Mean Platelet Volume 7.0 FL (6.5-10.1) Neutrophils (%) (Auto) 52.3 % (45.0-75.0) Lymphocytes (%) (Auto) 37.6 % (20.0-45.0) Monocytes (%) (Auto) 5.9 % (1.0-10.0) Eosinophils (%) (Auto) 3.3 % (0.0-3.0) H Basophils (%) (Auto) 0.8 % (0.0-2.0) Prothrombin Time 12.5 SEC (9.30-11.50) H Prothromb Time International Ratio 1.2 (0.9-1.1) H Sodium Level 147 MMOL/L (136-145) H Potassium Level 3.6 MMOL/L (3.5-5.1) Chloride Level 112 MMOL/L (98-107) H Carbon Dioxide Level 25 MMOL/L (21-32) Anion Gap 10 mmol/L (5-15) Blood Urea Nitrogen 10 mg/dL (7-18) Creatinine 0.6 MG/DL (0.55-1.30) Estimat Glomerular Filtration Rate > 60 mL/min (>60) Glucose Level 89 MG/DL (74-106) Calcium Level 9.0 MG/DL (8.5-10.1) Intake and Output 08/11/19 08/12/19 19:00 07:00 Intake Total 1000 ml 500 ml Balance 1000 ml 500 ml Intake Oral 400 ml IV Total 600 ml 500 ml # Voids 5 1 # Bowel Movements 1 Objective PHYSICAL EXAMINATION: GENERAL: The patient is awake and responsive, in no acute distress. HEAD AND NECK: Pupils are reactive to light. Extraocular movements intact. Neck was supple. No JVD. LUNGS: Clear. No wheezes or rales. HEART: S1, S2. Regular rhythm. Distant heart sounds. No murmurs or gallops. ABDOMEN: Soft, nontender, nontender. Positive bowel sounds. EXTREMITIES: No cyanosis, clubbing, or edema. NEUROLOGIC: Cranial nerves II through XII grossly intact. Motor is 5/5 in all extremities. RECTAL: Refused and deferred. GENITOURINARY: Refused and deferred. PSYCHIATRIC: Mood and affect Assessment/Plan Assessment/Plan ASSESSMENT: 1. Chest pain, possible acute coronary syndrome. 2. History of DVT and PE, on Coumadin anticoagulation. 3. Gallstone. 4. Diabetes type 2. 5. Hypertension. 6. Takayasu arteritis. PLAN: 1. Admit the patient to monitored unit. 2. We will follow up with Dr. Alva from [facility]. 3. We will monitor laboratory. 4. Followup serial cardiac enzymes. 5. Continue on warfarin therapy. 6. Code status is Full Code. 7. troponin negative 8. D/C home today Gilberto Horton MD Aug 12, 2019 12:07
--- NOTE | 2019-08-12 12:13 | GI Progress Note ---
Assessment/Plan Problems: (1) Abdominal pain ICD Codes: R10.9 - Unspecified abdominal pain SNOMED: 37392323 (2) Generalized weakness ICD Codes: R53.1 - Weakness SNOMED: 58810427 (3) Cholelithiasis ICD Codes: K80.20 - Calculus of gallbladder without cholecystitis without obstruction SNOMED: 090336373 Qualifiers: Qualified Codes: K80.80 - Other cholelithiasis without obstruction (4) PUD (peptic ulcer disease) ICD Codes: K27.9 - Peptic ulcer, site unspecified, unspecified as acute or chronic, without hemorrhage or perforation SNOMED: 60132573 Status: stable Status Narrative Discussed with Dr. Munoz. Assessment/Plan 1. DVTs and h/opulmonary embolism. 2. Gallstones. 3. H. pylori gastritis. 4. Diabetes. 5. Hypertension. 6. Takayasu arteritis. has had EGD in the last admission no anemia okay for DC per GI standpoint symptomatic treatment abd pain is better fu cardiology The patient was seen and examined at bedside and all new and available data was reviewed in the patients chart. I agree with the above findings, impression and plan. (Patient seen earlier today. Signature stamp does not reflect patient encounter time.). - Jose David Munoz MD Subjective Gastrointestinal/Abdominal: Reports: no symptoms Objective Last 24 Hour Vital Signs Date Time Temp Pulse Resp B/P (MAP) Pulse Ox O2 Delivery O2 Flow Rate FiO2 08/12/19 09:00 Room Air 08/12/19 08:53 68 155/81 08/12/19 07:32 97.9 68 16 155/81 (105) 97 08/12/19 05:00 59 153/84 (107) 08/12/19 04:00 97.8 60 20 171/89 (116) 97 08/12/19 00:00 97.6 56 21 160/78 (105) 97 08/11/19 22:29 169/83 08/11/19 20:00 97.9 55 18 184/94 (124) 98 08/11/19 20:00 58 08/11/19 20:00 Room Air 08/11/19 16:00 59 08/11/19 16:00 Room Air 08/11/19 16:00 97.2 57 19 172/82 (112) 98 Intake and Output 08/11/19 08/12/19 19:00 07:00 Intake Total 1000 ml 500 ml Balance 1000 ml 500 ml Intake Oral 400 ml IV Total 600 ml 500 ml # Voids 5 1 # Bowel Movements 1 Laboratory Tests Test 08/12/19 05:25 White Blood Count 8.1 K/UL (4.8-10.8) Red Blood Count 4.72 M/UL (4.20-5.40) Hemoglobin 13.2 G/DL (12.0-16.0) Hematocrit 41.5 % (37.0-47.0) Mean Corpuscular Volume 88 FL (80-99) Mean Corpuscular Hemoglobin 28.0 PG (27.0-31.0) Mean Corpuscular Hemoglobin Concent 31.8 G/DL (32.0-36.0) L Red Cell Distribution Width 14.7 % (11.6-14.8) Platelet Count 294 K/UL (150-450) Mean Platelet Volume 7.0 FL (6.5-10.1) Neutrophils (%) (Auto) 52.3 % (45.0-75.0) Lymphocytes (%) (Auto) 37.6 % (20.0-45.0) Monocytes (%) (Auto) 5.9 % (1.0-10.0) Eosinophils (%) (Auto) 3.3 % (0.0-3.0) H Basophils (%) (Auto) 0.8 % (0.0-2.0) Prothrombin Time 12.5 SEC (9.30-11.50) H Prothromb Time International Ratio 1.2 (0.9-1.1) H Sodium Level 147 MMOL/L (136-145) H Potassium Level 3.6 MMOL/L (3.5-5.1) Chloride Level 112 MMOL/L (98-107) H Carbon Dioxide Level 25 MMOL/L (21-32) Anion Gap 10 mmol/L (5-15) Blood Urea Nitrogen 10 mg/dL (7-18) Creatinine 0.6 MG/DL (0.55-1.30) Estimat Glomerular Filtration Rate > 60 mL/min (>60) Glucose Level 89 MG/DL (74-106) Calcium Level 9.0 MG/DL (8.5-10.1) Height (Feet): 5 Height (Inches): 4.00 Weight (Pounds): 139 General Appearance: WD/WN, no apparent distress, alert Cardiovascular: normal rate Respiratory/Chest: normal breath sounds, no respiratory distress Abdominal Exam: normal bowel sounds, non tender, soft Extremities: normal range of motion, non-tender Myles Garcia NP Aug 12, 2019 12:13
[2019-08-12] MEDS ORDERED: WARFARIN ORAL SCH ×2 (17:00)
--- NOTE | 2019-08-15 10:05 | Discharge Summary ---
Discharge Summary Discharge Summary _ DATE OF ADMISSION: 08/08/2019 DATE OF DISCHARGE: 08/12/2019 DISCHARGED BY: Dr. Haile REASON FOR ADMISSION: 44 years old female with past medical history significant for DVT and PE, on Coumadin therapy, antiphospholipid syndrome, pulmonary hypertension, Takayasu arteritis, essential hypertension, abdominal pain with peptic ulcer disease and cholelithiasis, status post EGD in November 2018 , history of latent tuberculosis , status post treatment, presented to emergency department complaining of chest pain and abdominal pain. Chest pain reported in midsternal area , radiating to the back as well as the right side and right hand. Patient reported shortness of breath and pain 9 out of 10 on a scale 1-10. She denied nausea and vomiting. She denied fever or chills. No hemoptysis, hematuria , hematochezia, black stools. Vital signs revealed significantly elevated blood pressure 180/100 , patient was afebrile , pulse oximetry was stable on room air. Laboratory work-up revealed no leukocytosis , stable hemoglobin and hematocrit. INR 2.1. Urinalysis revealed no evidence of urinary tract infection. Potassium 3.0 . BUN 12, creatinine 0.9. Glucose 123. Stable LFT. Urine toxicology screen was negative. Troponin was negative. EKG revealed sinus rhythm , no acute ischemic changes. CTA of the chest revealed no evidence of pulmonary emboli. Cholelithiasis noted. Chest x-ray demonstrated mild accentuation of bronchovascular marking. Shortly after initial evaluation patient was admitted to telemetry floor for chest pain, possible acute coronary syndrome and acute abdominal pain. CONSULTANTS: small arms repairer Dr. Lott business specialist Dr. Alva GI specialist Dr. Munoz [facility] COURSE: Patient admitted to monitored floor. Band Scroll Saw Operator and business specialist followed. Serial troponin negative. EKG revealed no acute ischemic changes. Band Scroll Saw Operator recommended ischemia evaluation when patient more stable. CTA of the chest revealed no pulmonary emboli , but showed evidence of cholelithiasis. Venous duplex bilateral lower extremity revealed no evidence of acute DVT. Coumadin was continued , dosing per pharmacy. Abdominal ultrasound demonstrated dilated velocity within the origin of the celiac artery. Significant stenosis suspected. GI specialist followed. Stool for occult blood was positive x1. However, hemoglobin and hematocrit remained stable, prior to discharge hemoglobin 13.2, hematocrit 41.5. Patient had EGD on the last admission. Currently, no anemia, hemoglobin and hematocrit remained stable. Pain management was addressed. Abdominal pain improved. No need for GI procedure at this time. 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 Differential diagnosis is large including both infectious and noninfectious causes such as large cell vasculitis and a variety of inflammatory/autoimmune diseases. Cholelithiasis noted along with colon diverticulosis, no diverticulitis. Patient had a history of antiphospholipid syndrome along with the other rheumatological problems ( arteritis, vasculitis) and under care of lan support specialist at [place] as outpatient. Blood pressure was managed with beta-senait. Hydralazine was provided for blood pressure spikes. Blood pressure stabilized. No further chest pain. Pulse oximetry was stable on room air. Bronchodilator therapy was on board as needed Blood sugar was managed with sliding scale of insulin. Hemoglobin A1c -6.2. Renal parameters and electrolytes were closely monitored. Electrolytes corrected as needed/potassium, nephrotoxins were avoided. Patient was started on prednisone in June 2019 ( she was taking prior, but apparently discontinued and had worsening symptoms) and Humira every 2 weeks with gradual tapering of prednisone. Patient to follow up with lan support specialist as outpatient as scheduled. Patient clinically stabilized and was ready for discharge. FINAL DIAGNOSES: Chest pain, possible acute coronary syndrome. History of DVT and PE, on Coumadin anticoagulation. Abdominal pain Cholelithiasis Peptic ulcer disease Diabetes mellitus type 2. Hypertension. Takayasu arteritis. Antiphospholipid syndrome, on anticoagulation. Polyarthritis. DISCHARGE MEDICATIONS: See Medication Reconciliation list. DISCHARGE INSTRUCTIONS: Patient was discharged home. Follow-up with a primary care provider in 1 week. I have been assigned to dictate discharge summary for this account. I was not involved in the patient's management. Sandra Cortes NP Aug 15, 2019 10:05
== END 2019-08-12 12:04 | disposition home or self-care (01) | DRG 311 ==
LOC: EDBD 16:03 → EMR 16:33 → 2W 16:38 → EDBEDREQ 18:36 → 4E 08-11 20:22
DX: I24.9 Acute ischemic heart disease, unspecified (principal); M31.4 Aortic arch syndrome [Takayasu]; D68.61 Antiphospholipid syndrome; I87.1 Compression of vein; K29.60 Other gastritis without bleeding; K27.9 Peptic ulcer, site unspecified, unspecified as acute or chronic, without hemorrhage or perforation; I10 Essential (primary) hypertension; K80.80 Other cholelithiasis without obstruction; I27.24 Chronic thromboembolic pulmonary hypertension; Z88.6 Allergy status to analgesic agent; E11.9 Type 2 diabetes mellitus without complications; Z86.718 Personal history of other venous thrombosis and embolism; Z79.01 Long term (current) use of anticoagulants; Z86.711 Personal history of pulmonary embolism; I27.20 Pulmonary hypertension, unspecified; M13.0 Polyarthritis, unspecified; Z86.15 Personal history of latent tuberculosis infection; J47.9 Bronchiectasis, uncomplicated; K57.90 Diverticulosis of intestine, part unspecified, without perforation or abscess without bleeding
CPT/HCPCS: 36415; 71045; 71275; 74175; 76700; 80048; 80053; 80307; 81003; 82150; 82270; 82550; 82962; 83036; 83690; 83880; 84443; 84484; 85025; 85610; 85730; 87081; 93005; 93970; 96374; 96375; 96376; 99285; J1815; J2405; J7030